=== PATIENT | male | born 1935 | race Caucasian/White ===

== ENCOUNTER → 2016-11-10 | Day surgery (SDC) | payer OTHER ==
[2016-11-03 13:35] VITALS: Ht 170.2 cm; Wt 72.7 kg
[2016-11-08] MEDS: PHENYLEPHRINE HCL 10% OP SOLN PER DROP CHARGE OPR SCH ×3 (08:25→08:35)
[~2016-11-10] VITALS: Ht 170.2 cm; Wt 72.7 kg
[~2016-11-10] MED LIST: 500ML BSS 0.3ML EPI 1:1000PF IRRIG ONE; ACETAMINOPHEN 325 MG TAB PO PRN; AMVISC PLUS 0.8ML SYRINGE INT OCU ONE; ASPCH81X PO; ATROPINE SULFATE 0.1 MG/ML 5ML SYR IV PRN; BROM0.07 OPR; BSS FLUSH ONE; CHOL1000 PO; DOXY100C76 PO; ENDOCOAT 0.85ML SYRINGE INT OCU ONE; EpHEDrine SULFATE INJ 50 MG/ML AMP IV PRN; EpINEphrine INJ 1MG/ML AMP 1 MG/ML AMP ONE; HYDR-5688 PO; LACTATED RINGER'S 1000ML 500 ML IV SCH; LIDOCAINE 4% OP SOLN DROP CHARGE ONE; LIDOCAINE 4% OP SOLN DROP CHARGE OPR SCH; LIDOCAINE HCL 1% MPF 2 ML VIAL ONE; LISI-788 PO; MELA1TAB5 PO; MIDAZOLAM HCL 1 MG/ML 2ML VIAL ONE; MIX: 4ML BSS 1ML EPI 1:1000 PF TOP ONE; MOXIFLOXACIN OPH SOLN PER DROP CHARGE ONE; PHENYLEPHRINE HCL 2.5% OP SOLN PER DROP CHARGE OPR SCH; POVIDONE-IODINE OP SOLN 30 ML BTL ONE; PRED1SUS3 OPR; PRLSR20 PO; PROPARACAINE 0.5% OP SOLN PER DROP CHARGE OPR SCH; SIMV20TA2 PO; TOBRAMYCIN/DEXAMETHASONE OPH OINT PER APPLN CHARGE ONE
[2016-11-10] MEDS: TROPICAMIDE 1% OP SOLN PER DROP CHARGE OPR SCH ×3 (08:26→08:36)
[2016-11-10] MEDS: CYCLOPENTOLATE HCL 1% OP SOLN PER DROP CHARGE OPR SCH ×3 (08:27→08:37)
[2016-11-10] MEDS: MOXIFLOXACIN OPH SOLN PER DROP CHARGE OPR SCH ×3 (08:28→08:38)
--- NOTE | 2016-11-10 08:48 | History & Physical Bridge - SC ---
H&P Re-Evaluation Bridge Note: I have examined the patient, reviewed the History & Physical and in the interval since the performance of the History & Physical I have noted the following changes of clinical significance: No changes noted
--- NOTE | 2016-11-10 09:58 | [facility] Post Operative Brief Note ---
Immediate Operative Summary Operative Date Nov 10, 2016. Pre-Operative Diagnosis Right Eye Cataract Post-Operative Diagnosis same Procedure(s) Performed Right Cataract Phacoemulsification With Intraocular Lens Implant Surgeon Dr. Bertha Barajas [employer] Dean Surgeon(s) 0 Estimated Blood Loss 0 Findings right cataract Specimens none Complication(s) None Disposition
[2016-11-10 10:00] VITALS: TEMP 37.2
--- NOTE | 2016-11-10 10:00 | [facility] Operative Report ---
Operative Report Date of Service Nov 10, 2016. Operative Report Phaco with monofocal IOL DATE OF OPERATION: 11/10/16 PREOPERATIVE DIAGNOSIS: Senile nuclear cataract, right eye POSTOPERATIVE DIAGNOSIS: Senile nuclear cataract, right eye PROCEDURE PERFORMED: Phacoemulsification with intraocular lens implantation, right eye SURGEON: Dr. Fredi Barajas ANESTHESIA: Topical with 1% intracameral lidocaine and monitored anesthesia care COMPLICATIONS: None DESCRIPTION OF PROCEDURE: After positively identifying the patient both verbally and by wristband in the preoperative area, the right eye was marked as the operative eye. The patient was then brought back to the operating room by the anesthesia and nursing staff where they were given a drop of Lidocaine and betadine into the operative eye. They were then sterilely prepped and draped in the standard fashion typical for ophthalmic surgery. Steri-strips were placed along the upper eyelids to keep the lashes back, and a lid speculum was placed into the operative eye. At this point, a documented time out was performed with members of the ophthalmology, nursing, and anesthesia staffs all agreeing upon the correct patient, correct location for surgery, correct procedure, and correct type and power of intraocular lens to be implanted. The microscope was then swung into position. First, a paracentesis wound was made using a sideport blade. Then, in sequence, 1% preservative-free lidocaine followed by Endocoat viscoelastic was injected into the anterior chamber. Next , the main incision was made with a keratome blade in triplanar fashion. A Malyugin ring was inserted due to poor pupil dilation. A sharp cystotome was introduced into the eye and used to create a tear in the anterior capsule, which was directed into a continuous curvilinear capsulorrhexis using Utrata forceps. Hydrodissection was then performed with BSS on a flat-tip cannula. Next, the phacoemulsification handpiece was introduced into the eye and used to remove the nucleus in a [id number] fashion. This was done without complication and then the irrigation-aspiration handpiece was introduced into the eye and used to remove all remaining cortical and epinuclear material. Amvisc was then injected into the anterior chamber as well as into the capsular bag and using the lens injector system, an MX60 20.0 D lens, serial number [id number], and expiration date 05/2019 was injected into the capsular bag and rotated into the correct position. The Malyugin ring was removed. Next, the irrigation-aspiration handpiece was used to remove all remaining Amvisc. BSS was used to hydrate the main wound, and then BSS was injected into the paracentesis site to reach physiologic pressure and then the main wound was checked and found to be watertight. The patient was given drops of Vigamox and Tobradex ointment into the operative eye, and then the surrounding area was cleaned and dried. A clear plastic shield was placed over the eye and the patient was then sat up and taken from the operating room by the anesthesia staff having tolerated the procedure well and suffering no complications. DISPOSITION: The patient was returned to the recovery room in stable condition. I attest to the content of the Intraoperative Record and any orders documented therein. Any exceptions are noted below.
--- NOTE | 2016-11-10 10:01 | Discharge Instructions-SurgCtr ---
Discharge Instructions Date of Service Nov 10, 2016. Visit Reason for Visit: Cataract Right Eye Discharge Discharge Diagnosis / Problem: right cataract Discharge Goals Goal(s): Decrease discomfort, Improve function Activity Recommendations Activity Limitations: as noted below Anesthesia . Post Anesthesia Instructions: If you have had General Anesthesia or IV Sedation: * Do not drive today. * Resume driving when surgeon permits. * Do not make important decisions or sign legal documents today. * Call surgeon for: 1. Temperature elevations greater than 101 degrees F. 2. Uncontrollable pain. 3. Excessive bleeding. 4. Persistent nausea and vomiting. 5. Medication intolerance (nausea, vomiting or rash). * For nausea and vomiting use only clear liquids such as: tea, soda, bouillon until nausea subsides, then gradually increase diet as tolerated. * If you have any concerns or questions, call your surgeon's office. If physician is unavailable and it is an emergency, call 911 or go to the nearest emergency room. . Instructions / Follow-Up Instructions / Follow-Up ACTIVITY RECOMMENDATIONS: * Light activities. * You may walk outside, read, watch television. * You may notice redness on the white part of the eye and some blurry vision - this is normal. MEDICATIONS: Resume previous medications unless instructed otherwise by your surgeon. Start all eye drops at 12 pm today: * Eye drops (today): Prednisone - one drop in operative eye every 2 hours while awake Ofloxacin - one drop in operative eye every 2 hours while awake Bromfenac - one drop in operative eye daily SPECIAL CARE INSTRUCTIONS: * Tape plastic shield over eye to sleep at night. Call your doctor at with any concerns or problems. FOLLOW UP VISIT: Follow-up with Dr Barajas at [facility] as scheduled. Diet Recommendations Home Diet: no limitations Procedures Procedures Performed: Right Cataract Phacoemulsification With Intraocular Lens Implant Pending Studies Studies pending at discharge: no Medical Emergencies . Who to Call and When: Medical Emergencies: If at any time you feel your situation is an emergency, please call 911 immediately. . Non-Emergent Contact Non-Emergency issues call your: Surgeon . . "Provider Documentation" section prepared by Fredi Barajas.
[2016-11-10 10:18] VITALS: BP 144/79; PULSE 62; O2SAT 98
--- NOTE | 2016-11-10 10:22 | Anesthesia Progress Nt - [facility] ---
Anesthesia Post Op Note Date & Time Nov 10, 2016 at 10:22 Vital Signs Pain Intensity: 0 Vital Signs Past 12 Hours Date Time Temp Pulse Resp B/P Pulse Ox O2 Delivery O2 Flow Rate FiO2 11/10/16 10:18 62 20 144/79 98 Room Air 11/10/16 10:00 37.2 74 16 143/82 97 Room Air 11/10/16 08:16 36.5 68 16 132/76 98 Room Air Notes Mental Status: alert / awake / arousable, participated in evaluation Pt Amnestic to Procedure: Yes Nausea / Vomiting: adequately controlled Pain: adequately controlled Airway Patency, RR, SpO2: stable & adequate BP & HR: stable & adequate Hydration State: stable & adequate Anesthetic Complications: no major complications apparent
== END | disposition home or self-care (01) ==
LOC: X.SURG 08:03
PROVIDERS: ATTEND Ophthalmology
DX: H25.11 Age-related nuclear cataract, right eye (principal); H91.90 Unspecified hearing loss, unspecified ear; E78.00 Pure hypercholesterolemia, unspecified; I10 Essential (primary) hypertension

== ENCOUNTER → 2016-11-24 | Day surgery (SDC) | payer OTHER ==
[2016-11-18 15:33] VITALS: Ht 170.2 cm; Wt 72.7 kg
[~2016-11-24] VITALS: Ht 170.2 cm; Wt 72.7 kg
[~2016-11-24] MED LIST changes: -BSS FLUSH ONE; -EpHEDrine SULFATE INJ 50 MG/ML AMP IV PRN; +LIDOCAINE 4% OP SOLN DROP CHARGE OPL SCH; -LIDOCAINE 4% OP SOLN DROP CHARGE OPR SCH; -PHENYLEPHRINE HCL 2.5% OP SOLN PER DROP CHARGE OPR SCH; +PROPARACAINE 0.5% OP SOLN PER DROP CHARGE OPL SCH; -PROPARACAINE 0.5% OP SOLN PER DROP CHARGE OPR SCH
[2016-11-24] MEDS: PHENYLEPHRINE HCL 2.5% OP SOLN PER DROP CHARGE OPL SCH ×3 (07:24→07:34)
[2016-11-24] MEDS: TROPICAMIDE 1% OP SOLN PER DROP CHARGE OPL SCH ×3 (07:25→07:35)
[2016-11-24] MEDS: CYCLOPENTOLATE HCL 1% OP SOLN PER DROP CHARGE OPL SCH ×3 (07:26→07:36)
[2016-11-24] MEDS: MOXIFLOXACIN OPH SOLN PER DROP CHARGE OPL SCH ×3 (07:27→07:47)
--- NOTE | 2016-11-24 08:31 | [facility] Post Operative Brief Note ---
Immediate Operative Summary Operative Date Nov 24, 2016. Pre-Operative Diagnosis Cataract left eye Post-Operative Diagnosis same Procedure(s) Performed Left Cataract Phacoemulsification With Intraocular Lens Implant Surgeon Dr Barajas Client Consultant Surgeon(s) 0 Estimated Blood Loss 0 Findings left cataract Specimens 0 Complication(s) None Disposition
[2016-11-24 08:32] VITALS: BP 128/86; PULSE 60; TEMP 36.3; O2SAT 96
--- NOTE | 2016-11-24 08:32 | [facility] Operative Report ---
Operative Report Date of Service Nov 24, 2016. Operative Report Phaco with monofocal IOL DATE OF OPERATION: 11/24/16 PREOPERATIVE DIAGNOSIS: Senile nuclear cataract, left eye POSTOPERATIVE DIAGNOSIS: Senile nuclear cataract, left eye PROCEDURE PERFORMED: Phacoemulsification with intraocular lens implantation, left eye SURGEON: Dr. Fredi Barajas ANESTHESIA: Topical with 1% intracameral lidocaine and monitored anesthesia care COMPLICATIONS: None DESCRIPTION OF PROCEDURE: After positively identifying the patient both verbally and by wristband in the preoperative area, the left eye was marked as the operative eye. The patient was then brought back to the operating room by the anesthesia and nursing staff where they were given a drop of Lidocaine and betadine into the operative eye. They were then sterilely prepped and draped in the standard fashion typical for ophthalmic surgery. Steri-strips were placed along the upper eyelids to keep the lashes back, and a lid speculum was placed into the operative eye. At this point, a documented time out was performed with members of the ophthalmology, nursing, and anesthesia staffs all agreeing upon the correct patient, correct location for surgery, correct procedure, and correct type and power of intraocular lens to be implanted. The microscope was then swung into position. First, a paracentesis wound was made using a sideport blade. Then, in sequence, 1% preservative-free lidocaine followed by Endocoat viscoelastic was injected into the anterior chamber. Next , the main incision was made with a keratome blade in triplanar fashion. A sharp cystotome was introduced into the eye and used to create a tear in the anterior capsule, which was directed into a continuous curvilinear capsulorrhexis using Utrata forceps. Hydrodissection was then performed with BSS on a flat-tip cannula. Next, the phacoemulsification handpiece was introduced into the eye and used to remove the nucleus in a [id number] fashion. This was done without complication and then the irrigation-aspiration handpiece was introduced into the eye and used to remove all remaining cortical and epinuclear material. Amvisc was then injected into the anterior chamber as well as into the capsular bag and using the lens injector system, an MX60 19.5 D lens, serial number [id number], and expiration date 06/2018 was injected into the capsular bag and rotated into the correct position. Next, the irrigation- aspiration handpiece was used to remove all remaining Amvisc. BSS was used to hydrate the main wound, and then BSS was injected into the paracentesis site to reach physiologic pressure and then the main wound was checked and found to be watertight. The patient was given drops of Vigamox and Tobradex ointment into the operative eye, and then the surrounding area was cleaned and dried. A clear plastic shield was placed over the eye and the patient was then sat up and taken from the operating room by the anesthesia staff having tolerated the procedure well and suffering no complications. DISPOSITION: The patient was returned to the recovery room in stable condition. I attest to the content of the Intraoperative Record and any orders documented therein. Any exceptions are noted below.
--- NOTE | 2016-11-24 08:32 | Discharge Instructions-SurgCtr ---
Discharge Instructions Date of Service Nov 24, 2016. Visit Reason for Visit: Cataract Left Eye Discharge Discharge Diagnosis / Problem: left cataract Discharge Goals Goal(s): Decrease discomfort, Improve function Activity Recommendations Activity Limitations: as noted below Anesthesia . Post Anesthesia Instructions: If you have had General Anesthesia or IV Sedation: * Do not drive today. * Resume driving when surgeon permits. * Do not make important decisions or sign legal documents today. * Call surgeon for: 1. Temperature elevations greater than 101 degrees F. 2. Uncontrollable pain. 3. Excessive bleeding. 4. Persistent nausea and vomiting. 5. Medication intolerance (nausea, vomiting or rash). * For nausea and vomiting use only clear liquids such as: tea, soda, bouillon until nausea subsides, then gradually increase diet as tolerated. * If you have any concerns or questions, call your surgeon's office. If physician is unavailable and it is an emergency, call 911 or go to the nearest emergency room. . Instructions / Follow-Up Instructions / Follow-Up ACTIVITY RECOMMENDATIONS: * Light activities. * You may walk outside, read, watch television. * You may notice redness on the white part of the eye and some blurry vision - this is normal. MEDICATIONS: Resume previous medications unless instructed otherwise by your surgeon. Start all eye drops at 10:30 am today: * Eye drops (today): Prednisone - one drop in operative eye every 2 hours while awake Ofloxacin - one drop in operative eye every 2 hours while awake Bromfenac - one drop in operative eye daily SPECIAL CARE INSTRUCTIONS: * Tape plastic shield over eye to sleep at night. Call your doctor at with any concerns or problems. FOLLOW UP VISIT: Follow-up with Dr Barajas at [facility] as scheduled. Diet Recommendations Home Diet: no limitations Procedures Procedures Performed: Left Cataract Phacoemulsification With Intraocular Lens Implant Pending Studies Studies pending at discharge: no Medical Emergencies . Who to Call and When: Medical Emergencies: If at any time you feel your situation is an emergency, please call 911 immediately. . Non-Emergent Contact Non-Emergency issues call your: Surgeon . . "Provider Documentation" section prepared by Fredi Barajas.
--- NOTE | 2016-11-24 08:58 | Anesthesia Progress Nt - [facility] ---
Anesthesia Post Op Note Date & Time Nov 24, 2016 at 08:58 Vital Signs Pain Intensity: 0 Vital Signs Past 12 Hours Date Time Temp Pulse Resp B/P Pulse Ox O2 Delivery O2 Flow Rate FiO2 11/24/16 08:32 36.3 60 18 128/86 96 Room Air 11/24/16 07:16 36.5 63 20 118/76 100 Room Air Notes Mental Status: alert / awake / arousable, participated in evaluation Pt Amnestic to Procedure: Yes Nausea / Vomiting: adequately controlled Pain: adequately controlled Airway Patency, RR, SpO2: stable & adequate BP & HR: stable & adequate Hydration State: stable & adequate Anesthetic Complications: no major complications apparent
== END | disposition home or self-care (01) ==
LOC: X.SURG 07:01
PROVIDERS: ATTEND Ophthalmology
DX: H25.12 Age-related nuclear cataract, left eye (principal); Z98.49 Cataract extraction status, unspecified eye; H04.129 Dry eye syndrome of unspecified lacrimal gland; I10 Essential (primary) hypertension; H91.90 Unspecified hearing loss, unspecified ear; K21.9 Gastro-esophageal reflux disease without esophagitis; E78.9 Disorder of lipoprotein metabolism, unspecified

== ENCOUNTER 2017-01-29 11:22 | Emergency (ER) | payer OTHER ==
[~2017-01-29] VITALS: Ht 170.2 cm; Wt 74.8 kg
[~2017-01-29 11:22] MED LIST changes: -500ML BSS 0.3ML EPI 1:1000PF IRRIG ONE; -ACETAMINOPHEN 325 MG TAB PO PRN; -AMVISC PLUS 0.8ML SYRINGE INT OCU ONE; -ATROPINE SULFATE 0.1 MG/ML 5ML SYR IV PRN; -ENDOCOAT 0.85ML SYRINGE INT OCU ONE; -EpINEphrine INJ 1MG/ML AMP 1 MG/ML AMP ONE; -HYDR-5688 PO; -LACTATED RINGER'S 1000ML 500 ML IV SCH; -LIDOCAINE 4% OP SOLN DROP CHARGE ONE; -LIDOCAINE 4% OP SOLN DROP CHARGE OPL SCH; -LIDOCAINE HCL 1% MPF 2 ML VIAL ONE; -MELA1TAB5 PO; -MIDAZOLAM HCL 1 MG/ML 2ML VIAL ONE; -MIX: 4ML BSS 1ML EPI 1:1000 PF TOP ONE; -MOXIFLOXACIN OPH SOLN PER DROP CHARGE ONE; -POVIDONE-IODINE OP SOLN 30 ML BTL ONE; -PROPARACAINE 0.5% OP SOLN PER DROP CHARGE OPL SCH; -TOBRAMYCIN/DEXAMETHASONE OPH OINT PER APPLN CHARGE ONE
[2017-01-29 11:27] VITALS: TEMP 36.5; Ht 170.2 cm; Wt 74.8 kg
--- NOTE | 2017-01-29 11:47 | EMERGENCY ROOM VISIT NOTE ---
History Report prepared by Pearl: Rocio Arroyo Under the Supervision of: Dr. Roddy Montgomery M.D. First contact with patient: 11:35 Chief Complaint: CHEST PAIN Stated Complaint: CHEST PAINS History of Present Illness The patient is a 81 year old male who presents to the Emergency Room with complaints of constant right sided chest pain that began 3 days prior to arrival. He states that the pain radiates around to his back. The patient initially thought he was experiencing heart burn. The patient was 3 days ago lifting a heavy bucket of water when he slipped on rocks and almost fell. He was experiencing chest ache and discomfort before this event but after began to experience the pain. The patient denies abdominal pain or any other symptoms at this time. 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 Review of Systems All systems have been listed, reviewed, and are negative other than those previously mentioned. Please see Additional Medical History Sheet. Past Medical & Surgical Medical Problems: (1) Hypertension Family History Hypertension Lung disease Social History Smoking Status: Never Smoker Smokeless Tobacco Use: Yes Alcohol Use: occasionally Marital Status: Occupation Status: retired Current/Historical Medications Scheduled Aspirin (Aspirin Chewable), 81 MG PO QAM Bromfenac Sodium (Ophth) (Prolensa), 1 DROP OPR DAILY Cholecalciferol (Vitamin D3), 1 TAB PO QAM Lisinopril/Hctz (Zestoretic 20MG/25MG), 1 TAB PO QAM Melatonin (Kp Melatonin), 1 TAB PO HS Omeprazole (Prilosec), 20 MG PO BID Prednisolone Acetate (Ophth) (Pred Forte 1% Oph), 1 DROPS OPR TID Simvastatin (Zocor), 20 MG PO QPM Scheduled PRN Hydrocodone/Acetaminophen 5MG/325MG ([place] 5MG/325MG), 1-2 TABLETS PO Q4 PRN for Severe pain Allergies Coded Allergies: No Known Allergies (Verified , 01/29/17) Physical Exam Vital Signs Date Time Temp Pulse Resp B/P Pulse Ox O2 Delivery O2 Flow Rate FiO2 01/29/17 13:30 67 18 145/95 96 01/29/17 12:28 60 01/29/17 11:32 96 Room Air 01/29/17 11:27 36.5 66 20 159/89 96 Room Air Physical Exam GENERAL: Patient awake, alert, oriented x 3. Patient follows commands. Patient does not appear toxic. Patient is adequately hydrated and well- nourished. SKIN: No erythema, pallor, cyanosis or rash HEENT: Normal head, pupils equal, reactive to light and accommodation. Ears normal. Oral cavity and posterior pharynx appear normal. Neck: Without adenopathy, no neck vein distention. LUNGS: Clear to auscultation. No wheezes, no rales, no rhonchi. Some pain with inspiration. HEART: No murmurs. No gallops. No rubs ABDOMEN: Tender under right breast. No masses, no rebound, no hepatomegaly or splenomegaly. EXTREMITIES: No signs of trauma. No pedal or pretibial edema. No calf or thigh tenderness. NEUROLOGIC: Cranial nerves II-XII within normal limits. No gross motor sensory function deficits. Medical Decision & Procedures ER Provider Diagnostic Interpretation: X ray results are stated below per my interpretation and the radiologist's interpretation. TWO VIEW CHEST CLINICAL HISTORY: Right-sided chest pain. FINDINGS: PA and lateral chest radiographs are obtained. No prior studies are available for comparison at the time of dictation. The cardiomediastinal silhouette is unremarkable. There is atherosclerotic calcification of the thoracic aorta. Nonspecific interstitial thickening is likely chronic. Scattered calcified granulomas are observed. No airspace consolidation or pleural effusion is identified. Nipple shadows project over the lower lobes. There is no pneumothorax. The skeletal structures are osteopenic. Degenerative change is seen throughout the thoracic spine. IMPRESSION: No acute cardiopulmonary abnormality. Electronically signed by: Manuel Jiménez M.D. 01/29/2017 12:18 PM Dictated Date/Time: 01/29/2017 12:16 PM Laboratory Results 01/29/17 12:00 01/29/17 12:00 Test 01/29/17 12:00 Red Blood Count 5.23 M/uL (4.7-6.1) Mean Corpuscular Volume 87.8 fL (80-100) Mean Corpuscular Hemoglobin 30.0 pg (25-34) Mean Corpuscular Hemoglobin Concent 34.2 g/dl (32-36) RDW Standard Deviation 41.0 fL (36.4-46.3) RDW Coefficient of Variation 12.7 % (11.5-14.5) Mean Platelet Volume 10.1 fL (7.4-10.4) Anion Gap 7.0 mmol/L (3-11) Est Creatinine Clear Calc Drug Dose 45.1 ml/min Estimated GFR () 65.3 Estimated GFR (Non- 56.4 BUN/Creatinine Ratio 14.1 (10-20) Calcium Level 8.7 mg/dl (8.5-10.1) Total Bilirubin 0.5 mg/dl (0.2-1) Aspartate Amino Transf (AST/SGOT) 18 U/L (15-37) Alanine Aminotransferase (ALT/SGPT) 23 U/L (12-78) Alkaline Phosphatase 116 U/L (45-117) Troponin I < 0.015 ng/ml (0-0.045) Total Protein 7.0 gm/dl (6.4-8.2) Albumin 4.0 gm/dl (3.4-5.0) Globulin 3.0 gm/dl (2.5-4.0) Albumin/Globulin Ratio 1.3 (0.9-2) Chemistry Specimen Hemolysis Laboratory results as stated above per my review. ECG Indication: chest pain Rate (beats per minute): 56 Rhythm: sinus bradycardia (with SA) Findings: nonspecific-ST abn, no ectopy, other (normal axis) ED Course 1136: Past medical records reviewed. The patient was evaluated in room C2. A complete history and physical examination was performed. 1315: I reevaluated the patient and he is feeling better. 1320: Upon reevaluation, the patient appeared to have improvement of his symptoms. I discussed today's findings with him. He verbalized agreement of the treatment plan. He was discharged home. Medical Decision Nurses notes reviewed. Medical history sheet reviewed. Differential diagnosis includes but is not limited to: myocardial infarction, chest wall pain, pericarditis, myocarditis, aortic emergencies, pulmonary embolism, congestive heart failure, GI causes, and other significant cardiopulmonary disorders. Medication Reconciliation: I attest that I have personally reviewed the patient' s current medication list. Blood Pressure Screening: Patient was found to have an elevated blood pressure and was referred to their primary doctor for recheck and further treatment. Multiple labs, EKG and imaging were obtained. Please see above. The patient has no evidence of a pneumohemothorax. There is no infiltrate. The patient's pain appears to be musculoskeletal in nature. That is consistent with his history and physical exam. The patient will be encouraged to use ibuprofen during the day and hydrocodone for more severe pain. [place] Drug Monitoring Program Search Results: patient reviewed within database (No matching searches found) Impression Primary Impression: Chest wall pain Scribe Attestation The scribe's documentation has been prepared under my direction and personally reviewed by me in its entirety. I confirm that the note above accurately reflects all work, treatment, procedures, and medical decision making performed by me. Departure Information Dispostion Home / Self-Care Prescriptions Hydrocodone/Acetaminophen 5MG/325MG ([place] 5MG/325MG) Tab 1-2 TABLETS PO Q4 Y for Severe pain, #12 TAB PRN PAIN Prov: Roddy Montgomery M.D. 01/29/17 Referrals Leandro Aldridge M.D. (PCP) Forms HOME CARE DOCUMENTATION FORM, IMPORTANT VISIT INFORMATION Patient Instructions My [facility] Additional Instructions 2-3 Advil every 6 hours as needed for pain. 1-2 hydrocodone every 4 hours as needed for more severe pain. Avoid heavy lifting for the next 2-3 weeks. Follow-up with your family physician within the next 2 weeks. Return here sooner if you develop more chest pain or shortness of breath.
[2017-01-29 12:13] LABS: HEMATOCRIT 45.9 % (42-52); MEAN CELL VOLUME 87.8 fL (80-100); MEAN CORPUSCULAR HGB CONC 34.2 g/dl (32-36); MEAN PLATELET VOLUME 10.1 fL (7.4-10.4); PLATELET COUNT 183 K/uL (130-400); RED BLOOD COUNT 5.23 M/uL (4.7-6.1)
[2017-01-29] MEDS ORDERED: MELA1TAB5 PO (12:18)
--- NOTE | 2017-01-29 12:19 | DIAGNOSTIC IMAGING REPORT ---
TWO VIEW CHEST CLINICAL HISTORY: Right-sided chest pain. FINDINGS: PA and lateral chest radiographs are obtained. No prior studies are available for comparison at the time of dictation. The cardiomediastinal silhouette is unremarkable. There is atherosclerotic calcification of the thoracic aorta. Nonspecific interstitial thickening is likely chronic. Scattered calcified granulomas are observed. No airspace consolidation or pleural effusion is identified. Nipple shadows project over the lower lobes. There is no pneumothorax. The skeletal structures are osteopenic. Degenerative change is seen throughout the thoracic spine. IMPRESSION: No acute cardiopulmonary abnormality. Electronically signed by: Manuel Jiménez M.D. 01/29/2017 12:18 PM Dictated Date/Time: 01/29/2017 12:16 PM
[2017-01-29 12:48] LABS: ALB/GLOB RATIO 1.3 (0.9-2); ALKALINE PHOSPHATASE 116 U/L (45-117); ALT/SGPT 23 U/L (12-78); AST/SGOT 18 U/L (15-37); BLOOD UREA NITROGEN 17 mg/dl (7-18); BUN/CREATININE RATIO 14.1 (10-20); CALCIUM 8.7 mg/dl (8.5-10.1); CARBON DIOXIDE 29 mmol/L (21-32); CHLORIDE 106 mmol/L (98-107); GLUCOSE 87 mg/dl (70-99); POTASSIUM 4.7 mmol/L (3.5-5.1); SODIUM 142 mmol/L (136-145)
[2017-01-29] MEDS ORDERED: HYDR-5688 PO (13:19)
[2017-01-29 13:30] VITALS: BP 145/95; PULSE 67; O2SAT 96
== END 2017-01-29 13:32 | disposition home or self-care (01) ==
LOC: C.EDB 11:24 → C.EDC 13:32
DX: R07.89 Other chest pain (principal); R00.1 Bradycardia, unspecified; I10 Essential (primary) hypertension; Z79.82 Long term (current) use of aspirin; Z79.899 Other long term (current) drug therapy; Z82.49 Family history of ischemic heart disease and other diseases of the circulatory system

== ENCOUNTER 2024-03-26 05:45 | Inpatient (IN) ==
--- NOTE | 2024-03-13 09:46 | Anesthesiology Consultation ---
Date of Service March 13, 2024 Assessment & Plan (1) Encounter for pre-operative examination: - surgeon ordered PCP pre-op appointment 03/15/24 per [facility] EMR. - Per echo vascular technologist on 03/13/24: No known infectious disease contacts, current infectious disease symptoms in past 10 days or COVID positive test result in the past 30 days. Chart Review Chart Review: Pending: Refer to Additional Notes / Consult section and Patient NOT seen in Pre Admission Testing History Surgery Operation Date: 03/26/24 11:05 Proposed Procedures p C3-C6 Anterior Cervical Discectomy and Fusion, C4 Corpectomy - Og Lane DO Height/Weight Height: 5 ft 7 in Weight: 63.503 kg Allergies Allergy/AdvReac Type Severity Reaction Status Date / Time No Known Allergies Allergy Verified 03/13/24 08:49 Medications Home Medications Medication Instructions Recorded Confirmed Last Taken omeprazole 20 mg tablet,delayed 20 mg PO QAM Heartburn 05/02/19 03/13/24 Unknown release aspirin 81 mg tablet,delayed 81 mg PO QAM 11/07/19 03/13/24 Unknown release (Adult Aspirin Regimen) amlodipine 5 mg tablet 5 mg PO QAM 03/13/24 03/13/24 Unknown cholecalciferol (vitamin D3) 25 25 mcg PO QAM 03/13/24 03/13/24 Unknown mcg (1,000 unit) tablet (Vitamin D3) diphenhydramine 25 1 tab PO HS PRN pain/sleep 03/13/24 03/13/24 Unknown mg-acetaminophen 500 mg tablet (Tylenol PM Extra Strength) doxycycline hyclate 100 mg capsule 100 mg PO .COMPLEX rosacea 03/13/24 03/13/24 Unknown lisinopril 20 mg tablet 20 mg PO QAM 03/13/24 03/13/24 Unknown simvastatin 20 mg tablet 20 mg PO QPM 03/13/24 03/13/24 Unknown Past Medical History Medical History (Updated 03/13/24 @ 09:52 by Pam Brown PA-C) CKD (chronic kidney disease) stage 3, GFR 30-59 ml/min GERD (gastroesophageal reflux disease) History of Mohs micrographic surgery for skin cancer Hx of basal cell carcinoma Hx of colonic polyps Hx of squamous cell carcinoma Hyperlipidemia Hypertension Prediabetes Rosacea Past Family History Family History Other No pertinent family history Past Surgical History Surgical History History of colonoscopy History of repair of rotator cuff (~2018) right S/P carpal tunnel release left S/P epidural steroid injection lumbar S/P inguinal hernia repair right Social History Smoking Status: Former smoker Do You Dip or Chew Tobacco: Yes (occasionally (advised on policy)) Smoking End Date: 1985 Hx Alcohol Use: No Hx Substance Use: No substance use type: does not use Lab Results Anesthesia Preop Results Results Anesthesia Widget: WBC 5.56 K/ul (4.8-10.8) 03/12/24 Hgb 14.8 g/dl (14.0-18.0) 03/12/24 Hct 43.5 % (42.0-52.0) 03/12/24 Plt 229 K/uL (130-400) 03/12/24 Na 142 mmol/L (136-145) 03/12/24 K 4.1 mmol/L (3.5-5.1) 03/12/24 Cl 108 mmol/L (98-107) H 03/12/24 CO2 27 mmol/L (21-32) 03/12/24 BUN 19 mg/dl (6-23) 03/12/24 Creat 1.00 mg/dl (0.6-1.4) 03/12/24 Glucose Level 99 mg/dl (70-99(Fasting)) 03/12/24 PT 10.9 Seconds (9.0-12.0) 03/12/24 PTT 25 Seconds (21-31) 03/12/24 INR 1.0 (0.9-1.1) 03/12/24 Urine Color Yellow 03/12/24 Urine Appearance Clear (Clear) 03/12/24 Urine pH 6.5 (4.5-7.5) 03/12/24 Urine Specific [place] 1.018 (1.000-1.030) 03/12/24 Urine Protein Negative (Negative) 03/12/24 Urine Glucose (UA) Negative (Negative) 03/12/24 Urine Ketones Negative (Negative) 03/12/24 Urine Blood Negative (Negative) 03/12/24 Urine Nitrite Negative (Negative) 03/12/24 Urine Bilirubin Negative (Negative) 03/12/24 Urine Urobilinogen Negative (Negative) 03/12/24 Urine Leukocyte Esterase Negative (Negative) 03/12/24 Blood Type O Positive 03/12/24 Antibody Screen NEGATIVE 03/12/24 Testing Electrocardiogram Date: 03/12/24 Sinus bradycardia with 1st degree AV block, rate 57 bpm Incomplete RBBB Chest X-Ray Date: 03/12/24 Subsegmental bibasilar opacities likely represent atelectasis/scarring. A mild pneumonitis considered less likely. Other Testing Head CT 08/14/23 No acute intracranial abnormality.
--- OUTSIDE RECORDS SUMMARY | 2024-03-26 05:52 | External Medical Summary | Summary of Care ---
Author Name Unknown Organization [facility] Address [address] [place] [address] Phone [phone] Care Team Providers Care Clinical Specialty Rep Name Role Phone Leandro Aldridge MD Primary Care Provider [phone] Reason for Visit * Reason Comments pre-op exam Pt here today for pr e op appointment Encounter Details Date Type Department Care Team (Latest Contact Info) Description 03/15/2024 3:00 PM EDT Office Visit [facility] [address] [place] [address] Bibi Santoro MD [address] [place] [address] Preoperative general physical examination*; Cervical myelopathy with cervical radiculopathy (HCC); Cervical spinal stenosis; HTN, goal below 140/90; Dyslipidemia, goal LDL below 100; Chronic kidney disease, stage 3a (HCC); Prediabetes Allergies No known active allergiesdocumented as of this encounter (statuses as of 03/15/2024) Medications Medication Sig Dispensed Refills Start Date End Date Status ASPIRIN 81 MG OR TABS one tab by mouth daily 0 0 04/15/2004 Active VITAMIN D 1000 UNITS PO CAPSIndications:Vi tamin D deficiency 1 capsule daily 30 Cap 11 06/02/2012 Active Doxycycline Hyclate 100 MG Oral Capsule Take 1 Capsule by mouth every other day. 09/24/2021 Active amLODIPine Besylate 5 MG Oral Tablet (Norvasc)Indicatio ns:HTN, goal below 140/90 Take 1 Tablet by mouth every evening. 90 Tablet 3 10/19/2023 Active Lisinopril 20 MG Oral Tablet (Prinivil)Indicati ons:HTN, goal below 140/90 TAKE 1 TABLET BY MOUTH EVERY DAY IN THE MORNING 90 Tablet 2 11/15/2023 Active Simvastatin 20 MG Oral Tablet (Zocor)Indications :Dyslipidemia, goal LDL below 100 TAKE 1 TABLET BY MOUTH EVERY DAY IN THE EVENING 90 Tablet 1 12/05/2023 Active Omeprazole 20 MG Oral Capsule Delayed Release (PriLOSEC)Indicati ons:Gastroesophage al reflux disease with esophagitis without hemorrhage TAKE 1 CAPSULE BY MOUTH EVERY MORNING 90 Capsule 1 12/16/2023 Active amLODIPine Besylate 2.5 MG Oral Tablet (Norvasc)Indicatio ns:HTN, goal below 140/90 TAKE 1 TABLET BY MOUTH EVERY DAY IN THE MORNING 90 Tablet 2 02/16/2023 03/15/2024 Discontinued (Patient preference/d iscontinuati on) documented as of this encounter (statuses as of 03/15/2024) Active Problems Problem Noted Date Diagnosed Date Prediabetes 10/18/2022 Overview: Per Prediabetes protocol Chronic kidney disease, stage 3a 01/13/2021 Overview: Per CKD protocol Intention tremor 10/08/2020 Hypertensive kidney disease with stage 3a chronic kidney disease 07/14/2020 Overview: Per CKD protocol Benign essential tremor 06/16/2017 Podagra 08/02/2016 HTN, goal below 140/90 11/05/2014 Acne rosacea 06/06/2014 Vitamin D deficiency 06/02/2012 Dyslipidemia, goal LDL below 100 05/26/2010 ADVANCE DIRECTIVE INFORMATION 04/27/2005 Overview: No, Advance Directive brochure offered , patient declined. ROTATOR CUFF SYNDROME, RIGHT SHOULDER 01/29/2003 Reflux esophagitis documented as of this encounter (statuses as of 03/15/2024) Resolved Problems Problem Noted Date Diagnosed Date Resolved Date Chronic kidney disease, stage 3a 01/13/2021 02/19/2021 Overview: Per CKD protocol Hypertensive kidney disease with chronic kidney disease stage III 06/19/2019 07/17/2020 Overview: Per CKD protocol Dizziness 02/27/2015 08/18/2018 Vertigo 02/27/2015 08/18/2018 KIDNEY DZ,CHRONIC (GFR 30-59) STAGE III 03/26/2010 01/15/2021 Overview: Per CKD Protocol, #1 HTN, goal below 130/80 08/22/200911/05 OPEN WOUND OF HAND, SPLINTER LEFT PALM 01/31/2007 08/18/2018 Elevated blood pressure, situational 01/29/2003 08/18/2018 pigmented hyperplastic solar keratosis- L mandible 02/17/98 09/18/2002 08/18/2018 solar lentigo- R helical rim 02/17/98 09/18/2002 08/18/2018 Actinic keratosis 09/18/2002 08/18/2018 BENIGN NEOPLASM LG BOWEL Diaphragmatic hernia 018 Overview: hiatal documented as of this encounter (statuses as of 03/15/2024) Immunizations Name Administration Dates Next Due COVID-19 mRNA, LNP-s, No Pre serve, 2-Dose Series (Moderna) 10/31/2020,10/03/2020 COVID-19 mRNA, LNP-s, No Pre serve, 2-Dose Series (Pfizer) 07/07/2021 COVID-19, MRNA-LNP, 23-24, P F, 30 MCG/0.3 mL, 12 YRS AND ABOVE, IM (PFIZER-Comirnaty) 07/13/2023 COVID-19, mRNA, LNP-s, PF, B ooster, 100mcg/0.5mg (Moderna) 01/25/2022 Covid-19, Mrna, Lnp-s, Pf, B ivalent, 30 Mcg, IM, 12 yrs and above (Pfizer) 06/07/2022 Pneumococcal Conjugate Vacc, 13 Valent (Prevnar) 06/09/2015 Pneumococcal Polysaccharide PPV23 (Pneumovax) 06/29/2006 Season Influenza, Quad, PF, Adjuvanted, 65+ Yrs, IM (FLUAD) 05/18/2021,05/13/2020 Seasonal Influenza, PF, 6 M & above, IM , (FluLaval or Fluzone) 06/04/2019,06/13/2018,06/16/2017 Seasonal Influenza, Quadriva lent Hd (Fluzone Hd) 05/17/2023,06/01/2022 Seasonal Influenza, Quadriva lent, No Preserve, IM 06/15/2016,06/09/2015 Seasonal Influenza, Split, I IV3, With Preserve, Inj 06/06/2014,06/04/2013,06/02/2012,05/28,05/26/2010,05/23/2009,07/01/2008 ,06/07/2007,06/29/2006 TDAP (age 10 and older)(Boostrix) 06/06/2014 Varicella Zoster Vaccine (Adult) 10/16/2008 Zoster Vaccine Recombinant (Shingrix) 10/28/2019 ,07/19/2019 documented as of this encounter Social History Tobacco Use Types Packs/Day Years Used Date Smoking Tobacco: Former Cigarettes 0.5 15 0 [birth year]/05/1944 - 09/05/1959 Passive Smoke Exposure: Past Smokeless Tobacco: Current Snuff Tobacco Cessation:Ready to Q uit: Not Asked; Counseling Given: Not Answered Comments:occasional chew Alcohol Use Standard Drinks/Week Comments Not Currently 0 (1 standard drink = 0.6 oz pur e alcohol) rarely PHQ-2 Answer Date Recorded PHQ Adult Total Score 0 07/29/2023 Hunger Vital Sign Answer Date Recorded Within the past 12 months, y ou worried that your food would run out before you got the money to buy more. Never true 07/28/20 22 Within the past 12 months, t he food you bought just didn't last and you didn't have money to get more. Never true 07/28/2022 Utilities Answer Date Recorded Do you have trouble paying y our heating, water, or electric bill? (Adult - for ages 18 years and over) Not on file 02/21/2024 Is your family able to pay t he heat, water, or electric bill? (Household - for ages 0-17 years) Not on file 02/21/2024 Does your family have access to good internet? (Household - for ages 0-17 years) Not on file 02/21/2024 Social Connections Answer Date Recorded How often do you feel lonely or isolated from those around you? (Adult - for ages 18 years and over) Not on file 02/21/2024 Sex and Gender Information Value Date Recorded Sex Assigned at Not on file Gender Identity Male 07/28/2022 8:50 AM EST Sexual Orientation Straight 08/20/2019 7: 43 AM EST Job Start Date Occupation Industry Not on file Not on file Not on file documented as of this encounter Last Filed Vital Signs Vital Sign Reading Time Taken Comments Blood Pressure 148/84 03/15/2024 2:56 PM EDT Pulse 71 03/15/2024 2:56 PM EDT Temperature 36.3 C (97.3 F) 03/15/2024 2:56 PM ED T Respiratory Rate 18 03/15/2024 2:56 PM EDT Oxygen Saturation 95% 03/15/2024 2:56 PM EDT Inhaled Oxygen Concentration - - Weight 71 kg (156 lb 8 oz) 03/15/2024 2:56 PM ED T Height - - Body Mass Index 24.88 07/29/2023 8:50 AM EST documented in this encounter Patient Instructions * Patient Instructions* Bibi Santoro MD - 03/15/2024 3:19 PM EDT Hold aspirin on Mar 18- And ok to resume aspirin right after surgery documented in this encounter Progress Notes * Bibi Santoro MD - 03/15/2024 3:04 PM EDT Subjective: Carlos Montoya is a 88 year old male. Presents at the request of Dr Lane for medical clearance for C3-6 neck surgery Neck MRI done in [place] which showed C2-C3: Mild disc bulge. There is moderate bilateral facet arthropathy. There is moderate bilateral uncovertebral joint disease. There is moderate bilateral neuroforaminal stenosis. There is no spinalcanal stenosis. C3-C4: A moderate disc osteophyte complex. There is moderate bilateral facet arthropathy. There is severe bilateral uncovertebral joint disease. There is severe bilateral neuroforaminal stenosis. There is moderate to severe spinal canal stenosis with spinal cord compression. C4-C5: Moderate to large disc osteophyte complex. There is moderate bilateral facet arthropathy. There is moderate to severe bilateral uncovertebral joint disease. There is moderate to severe bilateral neuroforaminal stenosis. There is severe spinal canal stenosis with spinal cord compression. C5-C6: A moderate disc osteophyte complex. There is moderate bilateral facet arthropathy. There is moderate to severe right and moderate left uncovertebral joint disease. There is moderate to severe right and moderate left neuroforaminal stenosis. There is mild spinal canal stenosis. C6-C7: A small disc osteophyte complex. There is moderate bilateral facet arthropathy. There is mild bilateral uncovertebral joint disease. There is mild bilateral neuroforaminal stenosis. There is no spinal canal stenosis. C7-T1: Mild disc bulge. There is mild right and moderate left facet arthropathy. There is mild right uncovertebral joint disease. There is mild right neuroforaminal stenosis. There is no spinal canalstenosis. Showing weakness, numbness on both hands arms Hypertension, HL Taking medication as prescribed, see med list. No medication side effects noted. Advised patient tokeep healthy life style, regular exercise with good diet, osito. low sodium diet. And also check BP at home too. Denies associated chest discomfort, chest heaviness, chest pressure, chest tightness, edema, palpitations and shortness of breath. taking asa for years Ok to hold it before surgery preDM, hba1c 5.9 Reviewed CXR , chronic atelectasis , no active breathing issue or cough Advised to keep deep breathing and use spirometer after surgery PHM: Patient Active Problem List Diagnosis ROTATOR CUFF SYNDROME, RIGHT SHOULDER Reflux esophagitis ADVANCE DIRECTIVE INFORMATION Dyslipidemia, goal LDL below 100 Vitamin D deficiency Acne rosacea HTN, goal below 140/90 Podagra Benign essential tremor Hypertensive kidney disease with stage 3a chronic kidney disease Intention tremor Chronic kidney disease, stage 3a (HCC) Prediabetes Current Outpatient Medications Medication Sig Dispense Refill ASPIRIN 81 MG OR TABS one tab by mouth daily 0 0 VITAMIN D 1000 UNITS PO CAPS 1 capsule daily 30 Cap 11 Doxycycline Hyclate 100 MG Oral Capsule Take 1 Capsule by mouth every other day. amLODIPine Besylate 5 MG Oral Tablet (Norvasc) Take 1 Tablet by mouth every evening. 90 Tablet 3 Lisinopril 20 MG Oral Tablet (Prinivil) TAKE 1 TABLET BY MOUTH EVERY DAY IN THE MORNING 90 Tablet 2 Simvastatin 20 MG Oral Tablet (Zocor) TAKE 1 TABLET BY MOUTH EVERY DAY IN THE EVENING 90 Tablet 1 Omeprazole 20 MG Oral Capsule Delayed Release (PriLOSEC) TAKE 1 CAPSULE BY MOUTH EVERY MORNING 90 Capsule 1 No current facility-administered medications for this visit. Past Medical History: Diagnosis Date Actinic keratosis Benign neoplasm of colon 1993 COLON POLYPS Benign neoplasm of colon 07/08/09 adenomatous polyp-- repeat in 3 years Diaphragmatic hernia Dyslipidemia, goal LDL below 100 05/26/2010 HTN, goal below 130/80 08/22/2009 KIDNEY DZ,CHRONIC (GFR 30-59) STAGE III 03/26/2010 pigmented hyperplastic solar keratosis- L mandible 02/17/98 Reflux esophagitis solar lentigo- R helical rim 02/17/98 Past Surgical History: Procedure Laterality Date COLONOSCOPY 09/08 normal. repeat 09/13 COLONOSCOPY W/ BIOPSY (RECTUM) 07/08/09 done polyp x1, diverticulosis, adenomatous polyp-- repeat in 3 years COLONOSCOPY, DIAGNOSTIC (RECTUM) 03/28/2013 path shows adenomatous polyp COLONOSCOPY, DIAGNOSTIC (STOMA) 94,95, 98 colonosc DENTAL SURGERY PROCEDURE NEC Dental Surgery Procedure INJECTION LUMBAR/SACRAL 11/22/2014 INJECTION SPINE LUMBAR OR SACRAL performed by Gerry Gilbert Cousins, DO at [facility] REPAIR INITIAL INGUINAL HERNIA REDUCIBLE AGE 5 OR MORE Right x 2 Review of patient's allergies indicates: No Known Allergies Family History Problem Relation Name Age of Onset Heart Disorder Mother Diabetes Mother Stroke Mother Cancer Mother skin ca Lung Disorder Father emphyzemia Family Status Relation Status Mo at age 89 88 [place] 99 HT DIS , CVA , DM Fa at age 67 COPD Sis Alive Sis Alive Social History Tobacco Use Smoking status: Former Current packs/day: 0.00 Average packs/day: 0.5 packs/day for 15.0 years (7.5 ttl pk-yrs) Types: Cigarettes Start date: 09/05/1944 Quit date: 09/05/1959 Years since quittin.5 Passive exposure: Past Smokeless tobacco: Current Types: Snuff Tobacco comments: occasional chew Substance Use Topics Alcohol use: Not Currently Comment: rarely Vaping/E-Cigarette Use Vaping/E-Cigarette Use Never User Vaping/E-Cigarette Substances Vaping/E-Cigarette Devices Review of Systems Constitutional: Positive for activity change (arm weakness, Lt> rt) and fatigue. Negative for appetite change, chills, diaphoresis, fever and unexpected weight change. Respiratory: Negative for cough, chest tightness, shortness of breath and wheezing. Cardiovascular: Negative for chest pain, palpitations and leg swelling. Gastrointestinal: Negative for abdominal distention and abdominal pain. Musculoskeletal: Positive for myalgias (arms), neck pain and neck stiffness. Neurological: Positive for weakness (arms, hands), numbness and headaches. Negative for dizziness and light-headedness. Hematological: Bruises/bleeds easily. Psychiatric/Behavioral: Positive for sleep disturbance. Negative for agitation and behavioral problems. The patient is not nervous/anxious. Objective: BP 148/84 | Pulse 71 | Temp 36.3 C (97.3 F) (Tympanic) | Resp 18 | Wt 71 kg (156 lb 8 oz) | SpO2 95% | BMI 24.88 kg/m | BSA 1.83 m Physical Exam Constitutional: General: He is not in acute distress. Appearance: Normal appearance. He is not ill-appearing, toxic-appearing or diaphoretic. HENT: Head: Normocephalic and atraumatic. Eyes: Extraocular Movements: Extraocular movements intact. Cardiovascular: Rate and Rhythm: Normal rate and regular rhythm. Pulses: Normal pulses. Heart sounds: Normal heart sounds. Pulmonary: Effort: Pulmonary effort is normal. No respiratory distress. Breath sounds: No stridor. No wheezing, rhonchi or rales. Chest: Chest wall: No tenderness. Abdominal: Palpations: Abdomen is soft. Musculoskeletal: Cervical back: Tenderness present. Right lower leg: No edema. Left lower leg: No edema. Neurological: Mental Status: He is alert. Cranial Nerves: No cranial nerve deficit. Sensory: Sensory deficit (arms hands) present. Motor: Weakness (arms hands) present. Gait: Gait abnormal. Psychiatric: Behavior: Behavior normal. 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 (Z01.818) Preoperative general physical examination (primary encounter diagnosis) Plan: op (G95.9, M54.12) Cervical myelopathy with cervical radiculopathy (HCC) Plan: op (M48.02) Cervical spinal stenosis Plan: op (I10) HTN, goal below 140/90 Plan: med (E78.5) Dyslipidemia, goal LDL below 100 Plan: med (N18.31) Chronic kidney disease, stage 3a (HCC) (R73.03) Prediabetes Hold on asa from Mar 18- ( 5-7 days prior to surgery on Mar 25) Bibi Santoro MD documented in this encounter Nursing Notes * Gladys Johnston LPN - 03/15/2024 2:50 PM EDT Chief Complaint Patient presents with pre-op exam Pt here today for pre op appointment documented in this encounter Plan of Treatment Upcoming Encounters Date Type Department Care Team (Late st Contact Info) Description 04/11/2024 7:40 AM EDT Laboratory Laboratory, [place] [address] [place] [id number] [facility] [address] [place] [address] 04/18/2024 7:40 AM EDT Office Visit [facility], [place] [address] [facility] [place] [address] Leandro Aldridge MD [address] [place] [address] 08/20/2024 8:00 AM EST Nurse Only Ancillary Department, [place] [address] [facility] [place] [address] [place], Nurse [facility] [address] [place] [address] Health Maintenance Due Date Last Done Comments COVID-19 Vaccine ( season) 2023 07/13/2023, 06/07/2022, 01/25/2022, Additional history exists Influenza Vaccine (FLU shot) (#1) 2024 05/17/2023, 06/01/2022, 05/18/2021, Additional history exists DTaP,Tdap,and Td Vaccines (2 - Td or Tdap) 06/06/2024 06/06/2014, 07/13/2004, 07/13/2004, Additional history exists Depression Screening 07/29/2024 07/29/2023 Albumin/Creatinine Ratio 10/12/2024 024, 10/04/2022, 09/25/2021, Additional history exists CKD PHOS USE SMARTSET 48209 10/12/2024 02/0 03/2024, 10/04/2022, 09/25/2021, Additional history exists HbA1c 10/12/2024 10/12/2023, 10/04/2022 CKD HGB USE SMARTSET 26431 03/12/202503/12, 10/12/2023, 10/04/2022, Additional history exists Pneumococcal Vaccine: 65+ Years Completed 06/09/2015, 05/06/2015, 06/29/2006, Additional history exists Zoster Vaccines Completed 10/28/2019, 07/06, 10/16/2008 HPV (Gardasil) Vaccine Aged Out No lo nger eligible based on patient's age to complete this topic Hepatitis B Vaccine Aged Out No longe r eligible based on patient's age to complete this topic MENINGOCOCCAL (MENACTRA/MENVEO) Aged Out No longer eligible based on patient's age to complete this topic documented as of this encounter Medical Devices Not on filedocumented as of this encounter Visit Diagnoses Diagnosis Preoperative general physical examination- Primary Other specified pre-operative examination Cervical myelopathy with cervical radiculopathy (HCC) Cervical spinal stenosis Spinal stenosis in cervical region HTN, goal below 140/90 Unspecified essential hypertension Dyslipidemia, goal LDL below 100 Other and unspecified hyperlipidemia Chronic kidney disease, stage 3a (HCC) Prediabetes Other abnormal glucose documented in this encounter Care Teams Clinical Specialty Rep Relationship Specialty Start Date End Date Leandro Aldridge MD [address] [place] [address] PCP - General 01/03/1998 documented as of this encounter"
--- OUTSIDE RECORDS SUMMARY | 2024-03-26 05:52 | External Medical Summary | Summary of Care ---
Author Name Unknown Organization [facility] Address [address] [facility] [address] Phone [phone] Care Team Providers Care Caterer Helper Name Role Phone Leandro Aldridge MD Primary Care Provider [phone] Encounter Details Date Type Department Care Team (Late st Contact Info) Description 03/12/2024 Result Scan Unspecified Department <No scans attached> Allergies No known active allergiesdocumented as of this encounter (statuses as of 03/14/2024) Medications Medication Sig Dispensed Refills Start Date End Date Status ASPIRIN 81 MG OR TABS one tab by mouth daily 0 0 04/15/2004 Active VITAMIN D 1000 UNITS PO CAPSIndications:Vitam in D deficiency 1 capsule daily 30 Cap 11 06/02/2012 Active Doxycycline Hyclate 100 MG Oral Capsule Take 1 Capsule by mouth every other day. 09/24/2021 Active amLODIPine Besylate 2.5 MG Oral Tablet (Norvasc)Indications: HTN, goal below 140/90 TAKE 1 TABLET BY MOUTH EVERY DAY IN THE MORNING 90 Tablet 2 02/16/2023 Active amLODIPine Besylate 5 MG Oral Tablet (Norvasc)Indications: HTN, goal below 140/90 Take 1 Tablet by mouth every evening. 90 Tablet 3 10/19/2023 Active Lisinopril 20 MG Oral Tablet (Prinivil)Indications :HTN, goal below 140/90 TAKE 1 TABLET BY MOUTH EVERY DAY IN THE MORNING 90 Tablet 2 11/15/2023 Active Simvastatin 20 MG Oral Tablet (Zocor)Indications:Dy slipidemia, goal LDL below 100 TAKE 1 TABLET BY MOUTH EVERY DAY IN THE EVENING 90 Tablet 1 12/05/2023 Active Omeprazole 20 MG Oral Capsule Delayed Release (PriLOSEC)Indications :Gastroesophageal reflux disease with esophagitis without hemorrhage TAKE 1 CAPSULE BY MOUTH EVERY MORNING 90 Capsule 1 12/16/2023 Active documented as of this encounter (statuses as of 03/14/2024) Active Problems Problem Noted Date Diagnosed Date [...] as of this encounter (statuses as of 03/14/2024) Resolved Problems Problem Noted Date Diagnosed Date [...] as of this encounter (statuses as of 03/14/2024) Immunizations Name Administration Dates Next Due COVID-19 [...] Cigarettes 0.5 15 0 09/05/1944 - 09[birth year]05/1959 Smokeless Tobacco: Current Snuff Comments:occasional chew Alcohol Use Standard Drinks/Week Comments [...] on file documented as of this encounter Plan of Treatment Upcoming Encounters Date Type Department Care Team (Late st Contact Info) Description 03/15/2024 3:00 PM EDT Office Visit [facility] [address] [place] [facility] [place] [address] Bibi Santoro MD [address] [facility] [address] 04/11/2024 7:40 AM EDT Laboratory Laboratory, [place] [address] [facility] [place] [phone] [place], Laboratory [address], [place] [id number] 04/18/2024 7:40 AM EDT Office Visit Family Practice, [place] [address] [facility] [place] [phone] Leandro Aldridge MD [address] [place] [address] 08/20/2024 8:00 AM EST Nurse Only Ancillary Department, [place] [address] [place] [address] [place], Nurse Annual Wellness [address], [place] [id number] Health Maintenance Due Date Last Done Comments COVID-19 Vaccine ( season) 2023 07/13/2023, 06/07/2022, 01/25/2022, Additional history exists Influenza Vaccine (FLU shot) (#1) 2024 05/17/2023, 06/01/2022, 05/18/2021, Additional history exists DTaP,Tdap,and Td Vaccines (2 - Td or Tdap) 06/06/2024 06/06/2014, 07/13/2004, 07/13/2004, Additional history exists Depression Screening 07/29/2024 07/29/2023 Albumin/Creatinine Ratio 10/12/2024 024, 10/04/2022, 09/25/2021, Additional history exists CKD PHOS USE SMARTSET 23106 10/12/2024 02/0 03/2024, 10/04/2022, 09/25/2021, Additional history exists HbA1c 10/12/2024 10/12/2023, 10/04/2022 CKD HGB USE SMARTSET 06825 03/12/202503/12, 10/12/2023, 10/04/2022, Additional history exists Pneumococcal [...] Not on filedocumented as of this encounter Procedures Procedure Name Priority Date/Time Associated Diagnosis Comments EKG SCANNED RESULT 03/12/2024 documented in this encounter Results * EKG SCANNED RESULT (03/12/2024) 03/12/2024 No Physician Data Unknown EKG documented in this encounter Care Teams Caterer Helper Relationship Specialty Start Date End Date Leandro Aldridge MD [address] [place] [address] PCP - General 01/03/1998 documented as of this encounter
--- OUTSIDE RECORDS SUMMARY | 2024-03-26 05:52 | External Medical Summary | Summary of Care ---
Author Name Unknown Organization [facility] Address [address] [place] [address] Phone [phone] Care Team Providers Care Dye Tub Operator Name Role Phone Leandro Aldridge MD Primary Care Provider [phone] Encounter Details Date Type Department Care Team (Late st Contact Info) Description 03/14/2024 Orders Only [facility] [address] [place] [address] Leandro Aldridge MD [address] [place] [address] Allergies No known active allergiesdocumented as of [...] mRNA, LNP-s, No Pre serve, 2-Dose Series ([employer]) 07/07/2021 COVID-19, MRNA-LNP, 23-24, P F, 30 MCG/0.3 mL, 12 YRS AND ABOVE, IM ([employer]-Comirnaty) 07/13/2023 COVID-19, mRNA, LNP-s, PF, B ooster, [...] Description 03/15/2024 3:00 PM EDT Office Visit [facility], [place] [address] [place] [facility] [phone] Bibi Santoro MD [address] [facility], [place] [phone] 04/11/2024 7:40 AM EDT Laboratory Laboratory, [place] [address] [place] [facility] [place] [phone] [facility] [address] [facility], [place] [id number] 04/18/2024 7:40 AM EDT Office Visit [facility], [place] [address] [facility] [place] [address] Leandro Aldridge MD [address] [place] [facility] [place] [address] 08/20/2024 8:00 AM EST Nurse Only Ancillary Department, [place] [address] [place] [facility] [place] [address] [place], Nurse Annual Wellness [address] [facility], [place] [phone] Health Maintenance Due Date Last Done Comments COVID-19 Vaccine ( season) 2023 07/13/2023, 06/07/2022, 01/25/2022, Additional history exists Influenza Vaccine (FLU shot) (#1) 2024 05/17/2023, 06/01/2022, 05/18/2021, Additional history exists DTaP,Tdap,and Td Vaccines (2 - Td or Tdap) 06/06/2024 06/06/2014, 07/13/2004, 07/13/2004, Additional history exists Depression Screening 07/29/2024 07/29/2023 Albumin/Creatinine Ratio 10/12/2024 024, 10/04/2022, 09/25/2021, Additional history exists CKD PHOS USE SMARTSET 63999 10/12/2024 02/0 03/2024, 10/04/2022, 09/25/2021, Additional history exists HbA1c 10/12/2024 10/12/2023, 10/04/2022 CKD HGB USE SMARTSET 51039 03/12/202503/12, 10/12/2023, 10/04/2022, Additional history exists Pneumococcal [...] Procedure Name Priority Date/Time Associated Diagnosis Comments XR CHEST 2 VIEWS Routine 03/12/2024 documented in this encounter Results * XR CHEST 2 VIEWS (03/12/2024) Anatomical Region Laterality Modality Chest Other 03/12/[address] DO RADIOLOGY ( RAD GENERAL) documented in this encounter Care Teams Dye Tub Operator Relationship Specialty Start Date End Date Leandro Aldridge MD [address] [place] [address] PCP - General 01/03/1998 documented as of this encounter
--- OUTSIDE RECORDS SUMMARY | 2024-03-26 05:52 | External Medical Summary | Summary of Care ---
Author Name Unknown Organization [facility] Address [address] [place] [address] Phone [phone] Care Team Providers Care Date Night Sitter Name Role Phone Leandro Aldridge MD Primary Care Provider [phone] Encounter Details Date Type Department Care Team (Late st Contact Info) Description 03/13/2024 Orders Only [facility] [address] [place] [address] Leandro Aldridge MD [address] [place] [address] Allergies No known active allergiesdocumented as of this encounter (statuses as of 03/13/2024) Medications Medication Sig Dispensed Refills Start Date [...] as of this encounter (statuses as of 03/13/2024) Active Problems Problem Noted Date Diagnosed Date [...] as of this encounter (statuses as of 03/13/2024) Resolved Problems Problem Noted Date Diagnosed Date [...] as of this encounter (statuses as of 03/13/2024) Immunizations Name Administration Dates Next Due COVID-19 mRNA, LNP-s, No Pre serve, 2-Dose Series (Modern[employer]) 10/31/2020,10/03/2020 COVID-19 mRNA, LNP-s, No Pre serve, 2-Dose Series ([employer]) 07/07/2021 COVID-19, MRNA-LNP, 23-24, P F, 30 MCG/0.3 mL, 12 YRS AND ABOVE, IM ([employer]-Comirnaty) 07/13/2023 COVID-19, mRNA, LNP-s, PF, B ooster, [...] Description 03/15/2024 3:00 PM EDT Office Visit [facility], [place] [address] [place] [facility] [place] [phone] Bibi Santoro MD [address] [facility], [place] [phone] 04/11/2024 7:40 AM EDT Laboratory Laboratory, [place] [address] [place] [facility] [phone] [facility] [address] [facility], [place] [phone] 04/18/2024 7:40 AM EDT Office Visit [facility], [place] [address] [place] [facility] [address] Leandro Aldridge MD [address] [place] [facility] [address] 08/20/2024 8:00 AM EST Nurse Only Ancillary Department, [place] [address] [place] [facility] [address] [place], Nurse Annual Wellness [address] [facility], [place] [phone] Health Maintenance Due Date Last Done Comments COVID-19 Vaccine ( season) 2023 07/13/2023, 06/07/2022, 01/25/2022, Additional history exists Influenza Vaccine (FLU shot) (#1) 2024 05/17/2023, 06/01/2022, 05/18/2021, Additional history exists DTaP,Tdap,and Td Vaccines (2 - Td or Tdap) 06/06/2024 06/06/2014, 07/13/2004, 07/13/2004, Additional history exists Depression Screening 07/29/2024 07/29/2023 Albumin/Creatinine Ratio 10/12/2024 024, 10/04/2022, 09/25/2021, Additional history exists CKD HGB USE SMARTSET 96316 10/12/202403/12, 10/12/2023, 10/04/2022, Additional history exists CKD PHOS USE SMARTSET 70369 10/12/2024 02/0 03/2024, 10/04/2022, 09/25/2021, Additional history exists HbA1c 10/12/2024 10/12/2023, 10/04/2022 Pneumococcal Vaccine: 65+ Years Completed 06/09/2015, 05/06/2015, [...] Procedure Name Priority Date/Time Associated Diagnosis Comments CHEMISTRY-OUTSIDE Routine 03/12/2024 documented in this encounter Results * CHEMISTRY-OUTSIDE (03/12/2024) Not all results display below - see scan for full detail OUTSIDE LAB (SEE SCANNED REPORT) Comment:SCAN INCL: BMP,PT, I NR, PTT, CBCD,UA, TYPE/SCR CREATININE-OUTSID E LAB 1.00 0.6 - 1.4 MG/DL OUTSIDE LAB (SEE SCANNED REPORT) EGFR-OUTSIDE LAB 66.9 OUT SIDE LAB (SEE SCANNED REPORT) POTASSIUM-OUTSIDE LAB 4.1 3.5 - 5.1 MMOL/L OUTSIDE LAB (SEE SCANNED REPORT) GLUCOSE-OUTSIDE LAB 99 70 - 99 MG/DL OUTSIDE LAB (SEE SCANNED REPORT) HOURS FASTING OUTSID E LAB (SEE SCANNED REPORT) TRIGLYCERIDES-OUT SIDE LAB OUTSIDE LAB (SEE SCANNED REPORT) CHOLESTEROL-OUTSI DE LAB OUTSIDE LAB (SEE SCANNED REPORT) HDL-OUTSIDE LAB OUTS [facility]RA LAB (SEE SCANNED REPORT) CHOL/HDL RATIO-OUTSIDE LAB OUTSIDE LA B (SEE SCANNED REPORT) LDL (CALCULATED)-OUTS ANDRA LAB OUTSIDE LAB (SEE SCANNED REPORT) LDL (DIRECT MEASURE)-OUTSIDE LAB OUTSIDE LAB (SEE SCANNED REPORT) HEMOGLOBIN, C6R-NUDHJOA LAB OUTSIDE LAB (SEE SCANNED REPORT) PHOSPHORUS-OUTSID E LAB OUTSIDE LAB (SEE SCANNED REPORT) PTH-OUTSIDE LAB OUTS ANDRA LAB (SEE SCANNED REPORT) MICROALBUMIN RATIO-OUTSIDE LAB OUTSIDE LA B (SEE SCANNED REPORT) PROTEIN, UA-OUTSIDE LAB OUTSIDE LAB (SEE SCANNED REPORT) HGB 14.8 14.0 - 18.0 G/DL OUTSIDE LAB (SEE SCANNED REPORT) 03/12/[address] DO LABORATORY OUTSIDE LAB (SEE SCANNED REPORT) documented in this encounter Care Teams Date Night Sitter Relationship Specialty Start Date End Date Leandro Aldridge MD [address] [place] [address] PCP - General 01/03/1998 documented as of this encounter
[2024-03-26] MEDS: CeleBREX 200 MG CAP PO SCH (06:17)
[2024-03-26] MEDS: LR 15ML/HR IV SCH (06:17)
[2024-03-26] MEDS: GABAPENTIN 300 MG CAP PO SCH (06:17)
[2024-03-26] MEDS: ACETAMINOPHEN 500 MG TAB PO SCH (06:17)
[2024-03-26] MEDS: LR 60ML/HR IV SCH (06:17)
[2024-03-26] MEDS ORDERED: ATROPINE SULFATE 0.1 MG/ML 10ML SYR IV PRN (07:05)
[2024-03-26] MEDS ORDERED: fentaNYL citrate PF 100 MCG/2 ML VIAL IV PRN (07:05)
[2024-03-26] MEDS ORDERED: ePHEDrine sulfate 50 MG/ML AMP IV PRN (07:05)
[2024-03-26] MEDS ORDERED: ONDANSETRON INJ 2 MG/ML 2 ML VIAL IV PRN ×2 (07:05→11:33)
[2024-03-26] MEDS ORDERED: ROCURONIUM BROMIDE 10 MG/ML 5 ML VIAL IV ONE (07:07)
[2024-03-26] MEDS ORDERED: PROPOFOL IV EMULSION 10 MG/ML 20 ML VIAL IV ONE (07:07)
[2024-03-26] MEDS ORDERED: ONDANSETRON INJ 2 MG/ML 2 ML VIAL ONE (07:07)
[2024-03-26] MEDS ORDERED: LIDOCAINE 2% 2 ML VIAL/AMP(20MG/ML) INFIL ONE (07:07)
[2024-03-26] MEDS ORDERED: SUGAMMADEX SODIUM 200 MG/2 ML VIAL IV ONE (07:07)
[2024-03-26] MEDS ORDERED: fentaNYL citrate PF 100 MCG/2 ML VIAL ONE (07:07)
--- NOTE | 2024-03-26 07:38 | History & Physical Bridge Note ---
Date of Service March 26, 2024 History & Physical Bridge Note I have examined the patient, reviewed the History & Physical and in the interval since the performance of the History & Physical I have noted the following changes of clinical significance: no changes noted
--- NOTE | 2024-03-26 07:39 | History & Physical Report ---
Date of Service March 26, 2024 Assessment & Plan (1) Myelopathy concurrent with and due to spinal stenosis of cervical region: Plan: C3-C6 anterior cervical discectomy and fusion, C4 corpectomy History of Present Illness Chief Complaint: Neck and arm pain Primary Care Provider: Leandro Aldridge MD This is an 88-year-old male with chronic persistent neck and arm pain a failed course of nonoperative care is here for surgical intervention. Allergies Allergy/AdvReac Type Severity Reaction Status Date / Time No Known Allergies Allergy Verified 03/26/24 06:07 Home Medications Medication Instructions Recorded Confirmed Type omeprazole 20 mg tablet,delayed 20 mg PO QAM Heartburn 05/02/19 03/26/24 History release aspirin 81 mg tablet,delayed 81 mg PO QAM 11/07/19 03/26/24 History release (Adult Aspirin Regimen) amlodipine 5 mg tablet 5 mg PO QAM 03/13/24 03/26/24 History cholecalciferol (vitamin D3) 25 25 mcg PO QAM 03/13/24 03/26/24 History mcg (1,000 unit) tablet (Vitamin D3) diphenhydramine 25 1 tab PO HS PRN pain/sleep 03/13/24 03/26/24 History mg-acetaminophen 500 mg tablet (Tylenol PM Extra Strength) doxycycline hyclate 100 mg capsule 100 mg PO .COMPLEX rosacea 03/13/24 03/26/24 History lisinopril 20 mg tablet 20 mg PO QAM 03/13/24 03/26/24 History simvastatin 20 mg tablet 20 mg PO QPM 03/13/24 03/26/24 History Past Med/Surg History Problem List (Updated 03/26/24 @ 07:[address] DO) Myelopathy concurrent with and due to spinal stenosis of cervical region Encounter for pre-operative examination Carpal tunnel syndrome, left Hyperlipidemia GERD (gastroesophageal reflux disease) History of SCC (squamous cell carcinoma) of skin (Acute) History of basal cell carcinoma (Acute) Hypertension (Chronic) Medical History (Updated 03/26/24 @ 07:[address] DO) Prediabetes CKD (chronic kidney disease) stage 3, GFR 30-59 ml/min History of Mohs micrographic surgery for skin cancer Hx of colonic polyps Rosacea Hx of squamous cell carcinoma Hx of basal cell carcinoma GERD (gastroesophageal reflux disease) Hyperlipidemia Hypertension Surgical History S/P epidural steroid injection lumbar History of colonoscopy S/P inguinal hernia repair right S/P carpal tunnel release left History of repair of rotator cuff (~2018) right Family History Other No pertinent family history Social History (Updated 05/03/19 @ 08:47 by Martha Arboleda) Smoking Status: Former smoker Tobacco Type: Cigarettes Smoking End Date: 1985; Second Hand Exposure: No; Do You Dip or Chew Tobacco: Yes (occasionally (advised on policy)); Tobacco Cessation Education Requested by Patient: No Hx Alcohol Use: No Hx Substance Use: No Preferred Language: French Communication Ability: Effective Consulting Application Engineer Required: No Beliefs That Will Affect Care: Evangelical Evangelical Beliefs: Zoroastrian Current Living Situation: Family Current Living Situation Comment: lives with Daughter in law Other Information That Helps Us Care for You: No Assistive Devices: Denture - Lower and Glasses Physical Exam Physical Exam: Patient is alert and oriented heart regular in rhythm Lungs clear Results & Data Results & Data Vital Signs (Past 12 Hours) Vital Signs Temp Pulse Resp BP Pulse Ox O2 Del Method 03/26/24 06:33 36.5 C 65 20 167/92 H 93 Room Air
[2024-03-26] MEDS: ceFAZolin 2000MG 2,000 MG/15 ML SYR IV SCH ×2 (07:47→16:01)
[2024-03-26] MEDS ORDERED: DEXAMETHASONE SOD INJ 4 MG/ML VIAL ONE (08:03)
[2024-03-26] MEDS ORDERED: HYDROmorphone INJ 2 MG/ML SYR/VIAL ONE (08:22)
[2024-03-26] MEDS: ceFAZolin 330 MG/ML 1 GM VIAL ONE (08:25)
--- NOTE | 2024-03-26 09:38 | Operative Report ---
Post Operative Report Pre & Post Diagnosis Operation Date: 03/26/24 07:45 Pre-Op Diagnosis: Cervical myelopathy Post-Op Diagnosis: Same I identified the patient and participated in the time-out.: Yes Procedure Operation Date: 03/26/24 07:45 Actual Procedures #1 anterior cervical corpectomy with bilateral foraminotomies C4. #2 anterior cervical discectomy with bilateral foraminotomies C5-C6. #3 anterior cervical arthrodesis C3 to see 5 and C5-C6. #4 placement of Spira 25 mm cage C3-C5 and 7 mm cage C5-C6. #5 placement locally harvested morselized autograft combined with os design bone graft interbody cages. #6 application of K2 M plate and screws from C3-C6. Surgeon Og Lane, Resistor Inspector Analisa Lui Estimated Blood Loss 10 Findings Consistent with Post-Op Diagnosis Specimens None Indications This is an 88-year-old male presents with above-mentioned diagnosis of failed course of nonoperative care is here for surgical invention. Description of Procedure Patient is identified informed was obtained. Patient was then taken to the operative suite underwent ablation placed in the supine position on the [facility] to [place] splitter head. All bony prominences well-padded eyes inspected to ensure no external pressure placed upon them. This point the anterior cervical spine was prepped and draped in normal sterile fashion. I then placed a longitudinal incision along the right anterior aspect of the cervical spine extending from C3-C5. Blunt dissection with the assistance of bipolar electrocautery is then formed down to expose the anterior cervical spine from C3 to see 6. Self-retaining retractors placed. I performed a Complete discectomy of C3-C4 out to the uncovertebral notch bilaterally followed by C4-C5. [place] distracting pins again utilized. I removed all posterior annular fibers. [place] distracting pins were then placed in C3 and see 5 to distract across the C4 vertebral body. Complete corpectomy was then performed including removal of all posterior annular fibers longitudinal ligament bilateral foraminotomies. Endplates burred to subcortical bleeding bone and a 25 mm spiral cage filled locally harvested morselized autograft and os design bone graft tapped into position. I then proceeded to C5-C6. Complete discectomy was then performed up to the ankle vertebral joints bilaterally. [place] distracting pins again utilized. I removed all posterior annular fibers and bilateral foraminotomies performed. Endplates were to subcortical bleeding bone and a 7 mm spiral cage filled locally harvested morselized autograft and os design tapped in position. Distracting apparatus was removed. All anterior osteophytes burred to a smooth cortical surface and a K2 M plate and screws applied with the assistance of fluoroscopy. The incision was then copiously irrigated explored to ensure no damage to surrounding structures remaining bleeding. 10 round BRIANDA drain inserted. The incision was then closed with 2 Vicryl in the fascia and 4 Monocryl for final skin closure. Steri-Strips sterile dressing placed. Patient awakened PACU in stable condition. Please note spinal cord monitoring was utilized at the procedure no changes noted. Lastly Analisa Lui was present at the entire surgeon while the patient positioning complex portions of the surgery and final skin closure. Im ordering 10 grams of Triple [place] Collagen Powder (Second & Fourth A6010) to treat an incision wound that was caused by a spine procedure. The incision is approximately 2 cm(W) x 4 cm(L) into the joint (D) in size and is a full thickness wound. Triple [place] collagen comes in 1 gram packets so 10 packets were ordered. Given the size of the wound, with light to moderate exudate I chose to order a 10 day supply. The patient will be provided instructions for proper application of the collagen wound kit. The patient will be asked to apply the collagen powder daily and then cover it with sterile dressings dispensed. Collagen was selected as I expect the collagen to attract monocytes and fibroblasts, act as a sacrificial substrate for MMPs, and ultimately proved a matrix for tissue and vessel growth. The collagen will act as a primary dressing in this scenario. It is medically necessary for proper healing of these wounds to improve bioavailability and contact with each wound surface, this is also to help prevent infection of wounds and promote healing ultimately leading to a better healing outcome and limit the risk of infection. I attest to the content of the Intraoperative Record and any orders documented therein. Any exceptions are noted below.
--- NOTE | 2024-03-26 11:13 | Fluoroscopy Report ---
FL cervical 2-3V CLINICAL HISTORY: C3-C6 ACDF C4 CORPECTOMY COMPARISON STUDY: None. FLUOROSCOPY TIME: 17 seconds FLUOROSCOPY IMAGES: 3 Ka,r: 2.7 mGy FINDINGS: Anterior cervical discectomy and fusion from C3 through C6 with C4 corpectomy and cage. The hardware appears intact. Partial visualization of an endotracheal tube and surgical sponge at the re section site. IMPRESSION: Fluoroscopic assistance as above. ACT 112: Negative or not required by law. Electronically signed by: Valente Juan M.D. 03/26/2024 11:12 AM
[2024-03-26] MEDS ORDERED: SOD PHOSPHATE/SOD BIPHOSPHATE ENEMA 132 ML BTL PR PRN (11:33)
[2024-03-26] MEDS ORDERED: DO NOT ADMINISTER FLU VACCINE PRN (11:33)
[2024-03-26] MEDS ORDERED: ONDANSETRON 4 MG OD TAB PO PRN (11:33)
[2024-03-26] MEDS ORDERED: PROMETHAZINE HCL 12.5 MG in SODIUM CHLORIDE 0.9% 50 ML IV PRN (11:33)
[2024-03-26] MEDS ORDERED: diphenhydrAMINE Capsule 25 MG CAP PO PRN (11:33)
[2024-03-26] MEDS ORDERED: NALOXONE HCL 0.4 MG/1 ML VIAL/CARP IV PRN (11:33)
[2024-03-26] MEDS ORDERED: dexAMETHasone 8 MG in SYRINGE 0 ML IV PRN (11:33)
[2024-03-26] MEDS ORDERED: traMADol HCL 50 MG TABLET PO PRN (11:33)
[2024-03-26] MEDS ORDERED: FAMOTIDINE 20 MG TAB PO PRN (11:33)
[2024-03-26] MEDS ORDERED: oxyCODONE HCL IR 5 MG TAB (IMMEDIATE RELEASE) PO PRN (11:33)
[2024-03-26] MEDS ORDERED: HYDROmorphone INJ 0.5 MG/0.5 ML SYR IV PRN (11:33)
[2024-03-26] MEDS ORDERED: MAGNESIUM HYDROXIDE SUSP 30 ML UDC PO PRN (11:33)
[2024-03-26] MEDS ORDERED: hydrOXYzine HCl 25 MG TAB PO PRN (11:33)
[2024-03-26] MEDS ORDERED: LORazepam 0.5 MG in SYRINGE 0.25 ML IV PRN (11:33)
[2024-03-26] MEDS ORDERED: DO NOT ADMINISTER PNEUMOCOCCAL VACCINE PRN (11:33)
[2024-03-26] MEDS ORDERED: RACEPINEPHRINE 2.25% NEBU SOLN 0.5 ML VIAL INH PRN (11:33)
[2024-03-26] MEDS ORDERED: HYDROmorphone INJ 1 MG/ML SYRINGE IV PRN (11:33)
[2024-03-26] MEDS ORDERED: bisacodyL 10 MG SUPP PR PRN (11:33)
[2024-03-26] MEDS ORDERED: METOCLOPRAMIDE HCL INJ 5 MG/ML 2 ML VIAL IV PRN (11:33)
[2024-03-26] MEDS ORDERED: ALUMINUM/MAGNESIUM SUSP 30 ML UDC PO PRN (11:33)
[2024-03-26] MEDS ORDERED: LORazepam 0.5 MG TAB PO PRN (11:33)
--- NOTE | 2024-03-26 11:38 | Anesthesiology Progress Note ---
Date of Service March 26, 2024 Anesthesia Post Procedure Vital Signs Vital Signs: Temp Pulse Pulse Resp BP Pulse Ox O2 Del Method 03/26/24 11:05 70 20 148/71 H 98 Nasal Cannula 03/26/24 10:55 76 20 146/73 H 97 Nasal Cannula 03/26/24 10:45 71 17 125/81 96 Nasal Cannula 03/26/24 10:35 97.5 F L 67 20 145/75 H 95 Nasal Cannula 03/26/24 10:25 73 19 141/81 H 93 Nasal Cannula 03/26/24 10:15 67 12 148/72 H 94 Nasal Cannula 03/26/24 10:05 73 18 152/81 H 94 Nasal Cannula 03/26/24 09:55 72 17 181/93 H 94 Nasal Cannula 03/26/24 09:49 96.8 F L 78 12 205/80 H 100 Nasal Cannula 03/26/24 06:33 97.7 F 65 20 167/92 H 93 Room Air O2 Flow Rate 03/26/24 11:05 2 03/26/24 10:55 3 03/26/24 10:45 3 03/26/24 10:35 3 03/26/24 10:25 4 03/26/24 10:15 5 03/26/24 10:05 5 03/26/24 09:55 5 03/26/24 09:49 5 03/26/24 06:33 Transfer of Care Handoff Completed per policy Notes Mental Status: alert / awake / arousable and participated in evaluation Patient Amnestic to Procedure: Yes Nausea / Vomiting: adequately controlled Pain: adequately controlled Airway Patency, RR, SpO2: stable & adequate BP & HR: stable & adequate Hydration State: stable & adequate Anesthetic Complications: no major complications apparent and Pt Satisfied with anesthetic care
[2024-03-26] MEDS: SODIUM CHLORIDE 0.9% 1,000 ML IV SCH (11:46)
[2024-03-26] MEDS: FLOSEAL HEMOSTATIC MATRIX 10ML TOP ONE (12:27)
--- NOTE | 2024-03-26 12:39 | Consultation ---
Date of Consultation March 26, 2024 Assessment & Plan (1) Myelopathy concurrent with and due to spinal stenosis of cervical region: (2) Hypertension: (3) CKD (chronic kidney disease) stage 3, GFR 30-59 ml/min: Plan Mr. Montoya is an 88 year old male that presents to the [facility] for an elective C3-C6 ACDF with C4 corpectomy under the care of Dr. Lane after failed conservative management for persistent B/L UE discomfort. Intraoperatively, minimal blood loss of 10mL. Additional PMH includes HTN, CKD3, prediabetes, and GERD. No history of AMI or CVA. Myelopathy concurrent with and due to spinal stenosis of cervical region: Acute POD#0 s/p C3-C6 ACDF Under the care of Dr. Lane. Per ortho for pain control, wound care, anticoagulation and activities. Monitor H&H, Preop hemoglobin 14.8 on 03/12; trend continue incentive spirometry PT/OT when appropriate HTN: Chronic Takes amlodipine and lisinopril; continue HLD: Chronic Takes simvastatin;continue CKD stage III: Chronic Serum creatinine to be rechecked Rosacea: Chronic Takes Doxycycline;continue GERD: Chronic Takes omeprazole;continue Disposition: PCP: Dr. Aldridge CODE STATUS: Full code VTE prophylaxis: Per admitting team I spent a total of minutes coordinating, documenting, and providing care for this patient excluding time spent in the performance of separately billed services. All of the aforementioned completed while collaborating with the assigned attending physician for a full treatment plan. Please see their addendum for further details. Supervising Physician Co-Signing Physician Notes Pt was seen and examined by myself, Ingrid Ricardo MD on the day of service. Care was coordinated with SAMUEL Agustin. 88yoM s/p anterior cervical discectomy with bilateral foraminotomies and c4 anterior cervical corpectomy. Hx of HTN, HLD, reflux esophagitis, CKD, Vit D def, Prediabetes, known tremor. Continue home meds as ordered, on doxycycline prescribed by Dermatology for Roseacea. Otherwise as above. I spent a total [id number] coordinating, documenting, and providing care for this patient excluding time spent in the performance of separately billed services History of Present Illness Requesting Physician: Dr. Lane Reason for Consultation: post op medical management Attending Physician: Og Lane, DO History of Present Illness Mr. Montoya is an 88 y ear old male that presents to the [facility] for an elective C3-C6 ACDF under the care of Dr. Lane after failed conservative management. Intraoperatively, minimal blood loss of 10mL. Additional PMH includes HTN, CKD3, prediabetes, and GERD. No history of AMI or CVA. Post-operatively, patient is doing well. Patient is AAOx4 and currently not in any pain. C-collar in place with continuous pulse ox SpO2 94 to 95% and he does remain on 1 LNC. Reportedly has minimal neuropathy bilateral upper extremities which is improved from prior preop symptoms. Has not voided post removal of Parrish at this time. Patient does not report passing flatulence. He had Mohs surgery on his right arm years ago and does take doxycycline as a home medication for his rosacea management. Pt lives at home with his DIL; his son two years ago. [facility]. We appreciate it. Please feel free to contact us 28/03 with any questions or concerns. Allergies Allergy/AdvReac Type Severity Reaction Status Date / Time No Known Allergies Allergy Verified 03/26/24 06:07 Home Medications Medication Instructions Recorded Confirmed Type omeprazole 20 mg tablet,delayed 20 mg PO QAM Heartburn 05/02/19 03/26/24 History release aspirin 81 mg tablet,delayed 81 mg PO QAM 11/07/19 03/26/24 History release (Adult Aspirin Regimen) amlodipine 5 mg tablet 5 mg PO QAM 03/13/24 03/26/24 History cholecalciferol (vitamin D3) 25 25 mcg PO QAM 03/13/24 03/26/24 History mcg (1,000 unit) tablet (Vitamin D3) diphenhydramine 25 1 tab PO HS PRN pain/sleep 03/13/24 03/26/24 History mg-acetaminophen 500 mg tablet (Tylenol PM Extra Strength) doxycycline hyclate 100 mg capsule 100 mg PO .COMPLEX rosacea 03/13/24 03/26/24 History lisinopril 20 mg tablet 20 mg PO QAM 03/13/24 03/26/24 History simvastatin 20 mg tablet 20 mg PO QPM 03/13/24 03/26/24 History oxycodone 5 mg tablet 5 mg PO Q6H PRN pain #20 tabs 03/26/24 03/26/24 Rx tramadol 50 mg tablet 50 mg PO Q6H PRN pain, moderate 03/26/24 03/26/24 Rx #30 tabs Patient History Medical History Prediabetes History of Mohs micrographic surgery for skin cancer Hx of colonic polyps Rosacea Hx of squamous cell carcinoma Hx of basal cell carcinoma GERD (gastroesophageal reflux disease) Hyperlipidemia Surgical History S/P epidural steroid injection lumbar History of colonoscopy S/P inguinal hernia repair right S/P carpal tunnel release left History of repair of rotator cuff (~2017) right Family History Other No pertinent family history Social History Smoking Status: Former smoker Tobacco Type: Cigarettes Smoking End Date: 1985; Second Hand Exposure: No; Do You Dip or Chew Tobacco: Yes (occasionally (advised on policy)); Tobacco Cessation Education Requested by Patient: No Hx Alcohol Use: No Hx Substance Use: No Preferred Language: Nicaraguan Communication Ability: Effective Traffic Or System Dispatcher Required: No Beliefs That Will Affect Care: L[employer] L[employer] Beliefs: [employer] Current Living Situation: Family Current Living Situation Comment: lives with Daughter in law Other Information That Helps Us Care for You: No Assistive Devices: Denture - Lower and Glasses Review of Systems Review of Systems: Neuro: (-) Falls, trauma, slurred speech (+) neuropathy minimal B/L UE HEENT: (-) DÍAZ, dizziness, dysphagia, visual or auditory changes CV: (-) CP, palpitations, swelling Resp: (-) SOB GI: (-) appetite changes, N/V/D, bowel changes : (-) urinary changes Skin: (-) rashes Psych: (-) anxiety, depression Physical Exam Physical Exam: Neuro: AAOx4, PERRLA, no aphagia, memory changes, CNII-XII grossly intact HEENT: head normocephalic, moist mucus membranes CV: S1/S2, (-) M/G/R, (-) edema, cap refill < 3 seconds. BRIANDA Drain x1 with nayeli red bloody output Resp: Lungs CTA in all chavez. On 1LNC post op. GI: Abdomen S/NT/ND, Ax4 bowel sounds, (-) CVA tenderness Musculoskeletal: 5/5 B/L UE strength, 5/5 B/L LE strength. Did not observe gait dependence. Skin: (-) rashes , (-) erythema. Psych: euthymic mood Results & Data Vital Signs (Past 12 Hours) Vital Signs Temp Pulse Pulse Resp BP Pulse Ox O2 Del Method 03/26/24 12:25 36.5 C 77 16 147/72 H 95 Nasal Cannula 03/26/24 12:04 36.3 C L 80 16 145/84 H 93 Nasal Cannula 03/26/24 11:51 36.5 C 74 18 151/72 H 94 Nasal Cannula 03/26/24 11:42 80 16 93 Room Air 03/26/24 11:05 70 20 148/71 H 98 Nasal Cannula 03/26/24 10:55 76 20 146/73 H 97 Nasal Cannula 03/26/24 10:45 71 17 125/81 96 Nasal Cannula 03/26/24 10:35 36.4 C L 67 20 145/75 H 95 Nasal Cannula 03/26/24 10:25 73 19 141/81 H 93 Nasal Cannula 03/26/24 10:15 67 12 148/72 H 94 Nasal Cannula 03/26/24 10:05 73 18 152/81 H 94 Nasal Cannula 03/26/24 09:55 72 17 181/93 H 94 Nasal Cannula 03/26/24 09:49 36 C L 78 12 205/80 H 100 Nasal Cannula 03/26/24 06:33 36.5 C 65 20 167/92 H 93 Room Air O2 Flow Rate 03/26/24 12:25 1 03/26/24 12:04 1 03/26/24 11:51 1 03/26/24 11:42 03/26/24 11:05 2 03/26/24 10:55 3 03/26/24 10:45 3 03/26/24 10:35 3 03/26/24 10:25 4 03/26/24 10:15 5 03/26/24 10:05 5 03/26/24 09:55 5 03/26/24 09:49 5 03/26/24 06:33 Diagnostic Findings Cervical Spine X-Ray 03/26/24 07:45 FL cervical 2-3V CLINICAL HISTORY: C3-C6 ACDF C4 CORPECTOMY COMPARISON STUDY: None. FLUOROSCOPY TIME: 17 seconds FLUOROSCOPY IMAGES: 3 Ka,r: 2.7 mGy FINDINGS: Anterior cervical discectomy and fusion from C3 through C6 with C4 corpectomy and cage. The hardware appears intact. Partial visualization of an endotracheal tube and surgical sponge at the resection site. IMPRESSION: Fluoroscopic assistance as above. ACT 112: Negative or not required by law. Electronically signed by: Valente Juan M.D. 03/26/2024 11:12 AM
[2024-03-26] MEDS ORDERED: ACETAMINOPHEN 1,000 MG/100 ML VIAL IV PRN (14:00)
[2024-03-26] MEDS ORDERED: ACETAMINOPHEN 500 MG TAB PO PRN (14:00)
[2024-03-26] MEDS: dexAMETHasone 6 MG in SYRINGE 0 ML IV SCH (15:06)
[2024-03-26] MEDS: SIMVASTATIN 20 MG TAB PO SCH (21:51)
[2024-03-26] MEDS: DOCUSATE SODIUM/SENNA 50/8.6MG TAB PO SCH (21:51)
[2024-03-26] MEDS: COUGH DROP (SUGAR FREE) LOZ 24 LOZ/1 BOX BUCCAL PRN (22:06)
[2024-03-27] MEDS: POLYETHYLENE (MIRALAX) 17 GM PACK PO SCH (05:40)
[2024-03-27] MEDS: ASPIRIN 81 MG ECTAB PO SCH (07:50)
[2024-03-27] MEDS: lisinopril 20 MG TAB PO SCH (07:50)
[2024-03-27] MEDS: PANTOprazole 40 MG TAB PO SCH (07:50)
[2024-03-27] MEDS: CHOLECALCIFEROL 25 MCG (1000 UNITS) TAB PO SCH (07:50)
[2024-03-27] MEDS: amLODIPine BESYLATE 5 MG TAB PO SCH (07:50)
--- NOTE | 2024-03-27 08:44 | Hospitalist Progress Note ---
Date of Service March 27, 2024 Assessment & Plan (1) Myelopathy concurrent with and due to spinal stenosis of cervical region: (2) Hypertension: (3) CKD (chronic kidney disease) stage 3, GFR 30-59 ml/min: Plan Carlos Montoya is an 88y/o M that presents to the [facility] for an elective C3-C6 ACDF with C4 corpectomy under the care of Dr. Lane after failed conservative management for persistent B/L UE discomfort. Intraoperatively, minimal blood loss of 10mL. Additional PMH includes HTN, CKD3, prediabetes and GERD. No history of AMI or CVA. Myelopathy Concurrent With and Due to Spinal Stenosis of Cervical Region POD#1 s/p C3-C6 ACDF and C4 corpectomy with Dr. Lane. Per ortho for pain control, wound care, anticoagulation and activities. Continue incentive spirometry, PT/OT when appropriate per ortho. Monitor H/H for acute blood loss anemia and transfuse blood products AL Pre-op Hgb 14.8 on 03/12 --> Post-op Hgb 14.4 on 03/27 [stable]. HTN Chronic, stable. Takes amlodipine and lisinopril; continue. Hyperlipidemia Chronic, stable. Takes simvastatin; continue. CKD Stage III Baseline creatinine ~1.2-1.5 per chart review. BMP pending - will follow. Avoid nephrotoxic medications when able. H/O Rosacea Pt follows / [facility] Dermatology. Takes Doxycycline 100mg every other day; can continue. GERD Chronic, stable. Takes omeprazole; continue. DVT Prophylaxis: SCDs - As per primary orthopedic team Code Status: FULL CODE PCP: Leandro Aldridge MD Disposition: Patient admitted in Med/Surg, discharge planning as per primary orthopedic surgery team. We will continue to follow the patient with you during their hospital stay. You can reach a member of the [facility] Team 28/03 via [employer]. Patient seen in collaboration with Dr. George. Please see addendum. I spent a total of 25 minutes coordinating, documenting, and providing care for this patient excluding time spent in the performance of separately billed services. This included personally reviewing all current laboratories and imagin g studies, medical reconciliation, outpatient chart review and discussion with specialists. This chart was completed in part utilizing Speech Voice Recognition Software. Grammatical errors, random word insertions, pronoun errors, and incomplete sentences are an occasional consequence of this system due to software limitations, ambient noise, and hardware issues. Any formal questions or concerns about the content, text, or information contained within the body of this dictation should be directly addressed to the provider for clarification. Admission and Anticipated Discharge Date Admission Date: March 26, 2024 Supervising Physician Co-Signing Physician Notes I have seen and discussed the case with the collaborating advanced practitioner. I agree with the above PN. I have reviewed and confirmed the patients medical history, the findings on physical examination, and the patients diagnosis and treatment plan with Nereyda BARKER and agree with the information documented. Evaluated at bedside---reports eagerness to get home. Denies any new concerns, Stable for medical discharge. CTM home regimen I spent a total of 15 minutes coordinating, documenting, and providing care for this patient excluding time spent in the performance of separately billed services. All of the aforementioned completed outside of collaborating with the assigned advanced practitioner for a full treatment plan. I have reviewed the advanced practitioner's documentation, and I agree with, and take responsibility for the plan of care Subjective Patient seen and examined at bedside in room E319-1. Patient reports he is doing well; Has been out of bed moving without issue, minimal pain. Parrish cath has been removed. He is urinating without issue in the toilet and urinal. He denies any SOB, chest pain or dizziness/lightheadedness. Cervical collar and BRIANDA drain x [address]. Review of Systems Review of Systems: At least ten systems reviewed and negative, except as noted in the HPI. Physical Exam Physical Exam: General: WD/WN, NAD, sitting up in chair at bedside eating breakfast, pleasant, conversing appropriately. A+Ox3, euthymic affect. HEENT: Normocephalic, atraumatic. PERRL, conjunctivae normal, anicteric sclerae. External ear and nose normal, oropharynx normal. Neck: Normal visual inspection, post-operative neck collar in place, BRIANDA drain x 1 w/ nayeli red bloody output. Respiratory: Normal respiratory effort, lungs clear to auscultation, no accessory muscle use, 93% SpO2 on RA. Cardiovascular: Regular rate, rhythm, no murmur, normal peripheral pulses, no BLE edema. Vessels: No JVD. Abdomen/GI: Normal bowel sounds, soft, nontender, no hepatosplenomegaly. Extremities/Musculoskeletal: No cyanosis or clubbing, extremities motor strength not formally tested. Neurologic: EOMI, accommodation nl, no face palsy, no dysarthria, did not observe gait dependence. Skin: No rashes, normal color, warm/dry. Results & Data Results & Data Vital Signs (Past 12 Hours) Vital Signs Temp Pulse Pulse Resp BP Pulse Ox O2 Del Method 03/27/24 08:00 Room Air 03/27/24 08:00 96 H 16 93 Room Air 03/27/24 07:53 36.7 C 86 18 145/72 H 98 Room Air 03/27/24 06:27 36.7 C 90 16 162/76 H 95 Room Air 03/27/24 04:36 36.7 C 86 16 169/83 H 98 Nasal Cannula 03/27/24 03:00 88 23 97 Nasal Cannula 03/27/24 02:27 36.7 C 91 H 16 161/78 H 94 Nasal Cannula 03/27/24 00:35 36.6 C 83 16 158/82 H 95 Nasal Cannula 03/26/24 23:00 84 17 97 Nasal Cannula 03/26/24 22:42 36.5 C 90 18 164/81 H 94 Room Air O2 Flow Rate 03/27/24 08:00 03/27/24 08:00 03/27/24 07:53 03/27/24 06:27 03/27/24 04:36 1 03/27/24 03:00 2 03/27/24 02:27 1 03/27/24 00:35 1 03/26/24 23:00 1 03/26/24 22:42 Diagnostic Findings Cervical Spine X-Ray 03/26/24 07:45 FL cervical 2-3V CLINICAL HISTORY: C3-C6 ACDF C4 CORPECTOMY COMPARISON STUDY: None. FLUOROSCOPY TIME: 17 seconds FLUOROSCOPY IMAGES: 3 Ka,r: 2.7 mGy FINDINGS: Anterior cervical discectomy and fusion from C3 through C6 with C4 corpectomy and cage. The hardware appears intact. Partial visualization of an endotracheal tube and surgical sponge at the resection site. IMPRESSION: Fluoroscopic assistance as above. ACT 112: Negative or not required by law. Electronically signed by: Valente Juan M.D. 03/26/2024 11:12 AM Medications Administered Amlodipine Besylate (Amlodipine Besylate 5 Mg Tab) [facility] Stop: 04/26/24 08:59 Last Admin: 03/27/24 07:50 Dose: 5 mg Documented By: SHERINE Aspirin (Aspirin 81 Mg Ectab) 81 [facility] Stop: 04/26/24 08:59 Last Admin: 03/27/24 07:50 Dose: 81 mg Documented By: SHERINE Lisinopril (Lisinopril 20 Mg Tab) 20 [facility] Stop: 04/26/24 08:59 Last Admin: 03/27/24 07:50 Dose: 20 mg Documented By: SHERINE Menthol (Cough Drop (Sugar Free) Samara 24 Samara/1 Box) 1 samara BUCCAL PRN PRN PRN Reason: Sore Throat Stop: 04/25/24 21:53 Last Admin: 03/26/24 22:06 Dose: 1 samara Documented By: JOAQUÍN Pantoprazole Sodium (Pantoprazole 40 Mg Tab) 40 mg PO [facility] Stop: 04/26/24 08:59 Last Admin: 03/27/24 07:50 Dose: 40 mg Documented By: SHERINE Polyethylene Glycol (Polyethylene (Miralax) 17 Gm Pack) 17 gm PO Q6 [facility] Stop: 04/26/24 05:59 Last Admin: 03/27/24 05:40 Dose: 17 gm Documented By: JOAQUÍN Senna/Docusate Sodium (Docusate Sodium/Senna 50/8.6mg Tab) 2 tab PO HS [facility] Stop: 04/25/24 20:59 Last Admin: 03/26/24 21:51 Dose: 2 tab Documented By: JOAQUÍN Simvastatin (Simvastatin 20 Mg Tab) 20 mg PO QPM [facility] Stop: 04/25/24 20:59 Last Admin: 03/26/24 21:51 Dose: 20 mg Documented By: JOAQUÍN Vitamin D (Cholecalciferol 25 Mcg (1000 Units) Tab) 25 mcg [facility] Stop: 04/26/24 08:59 Last Admin: 03/27/24 07:50 Dose: 25 mcg Documented By: SHERINE Discontinued Medications Acetaminophen (Acetaminophen 500 Mg Tab) 1,000 mg PO PREOP [facility] Stop: 03/26/24 18:00 Last Admin: 03/26/24 06:17 Dose: 1,000 mg Documented By: DSW Cefazolin Sodium (Cefazolin 330 Mg/Ml 1 Gm Vial) Confirm Administered Dose 990 mg .ROUTE .STK-MED ONE Stop: 03/26/24 06:57 Last Admin: 03/26/24 08:25 Dose: 990 mg Documented By: MARTIN Celecoxib (Celebrex 200 Mg Cap) 200 mg PO PREOP JANICE Stop: 03/26/24 18:00 Last Admin: 03/26/24 06:17 Dose: 200 mg Documented By: DSW Gabapentin (Gabapentin 300 Mg Cap) 300 mg PO PREOP JANICE Stop: 03/26/24 18:00 Last Admin: 03/26/24 06:17 Dose: 300 mg Documented By: DSW Lactated Ringer's (Lr) 1,000 mls @ 15 mls/hr IV .Q24H JANICE Stop: 03/27/24 05:59 Last Infusion: 03/26/24 07:46 Dose: Infused Documented By: Admin: 03/26/24 06:17 Dose: 15 mls/hr Documented By: DSW Lactated Ringer's (Lr) 1,000 mls @ 60 mls/hr IV .[id number] JANICE Stop: 03/26/24 22:39 Last Admin: 03/26/24 06:17 Dose: Not Given Documented By: SHARONW Cefazolin Sodium (Ancef 2000mg) 2,000 mg in 15 mls @ 3.75 mls/min IV PREOP JANICE; Protocol Stop: 03/26/24 18:00 Last Admin: 03/26/24 07:47 Dose: 3.75 mls/min Documented By: [id number] Dexamethasone 6 mg/ Syringe 1.5 mls @ 1 mls/min IV Q8H JANICE Stop: 03/27/24 06:02 Last Admin: 03/27/24 05:41 Dose: 1 mls/min Documented By: Admin: 03/26/24 21:51 Dose: 1 mls/min Documented By: Admin: 03/26/24 15:06 Dose: 1 mls/min Documented By: RRD Sodium Chloride (Nss) 1,000 mls @ 100 mls/hr IV .Q10H JANICE Stop: 04/25/24 11:32 Last Infusion: 03/27/24 04:41 Dose: Infused Documented By: Admin: 03/26/24 21:46 Dose: 100 mls/hr Documented By: Infusion: 03/26/24 21:46 Dose: Infused Documented By: HFPrashant Admin: 03/26/24 11:46 Dose: 100 mls/hr Documented By: KETTY Cefazolin Sodium (Ancef 2000mg) 2,000 mg in 15 mls @ 3.75 mls/min IV Q8H JANICE; Protocol Stop: 03/27/24 00:03 Last Admin: 03/27/24 00:39 Dose: 3.75 mls/min Documented By: Admin: 03/26/24 16:01 Dose: 3.75 mls/min Documented By: KETTY Miscellaneous ( Floseal Hemostatic Matrix 10ml) 10 ml TOP ONCE ONE Stop: 03/26/24 09:28 Last Admin: 03/26/24 12:27 Dose: Not Given Documented By: KETTY (2) Hypertension Hypertension type: unspecified Qualified Code(s): I10 - Essential (primary) hypertension (3) CKD (chronic kidney disease) stage 3, GFR 30-59 ml/min Chronic kidney disease stage 3 subtype: unspecified whether 3a or 3b Qualified Code(s): N18.30 - Chronic kidney disease, stage 3 unspecified
[2024-03-27 08:49] LABS: Hematocrit (blood only) 41.2 % (42.0-52.0); Hemoglobin 14.4 g/dl (14.0-18.0); Mean Corpuscular Hemoglobin 30.1 pg (25.0-34.0); Mean Corpuscular Volume 86.2 fL (80.0-100.0); Mean Platelet Volume 10.9 fL (9.4-12.4); Platelet Count 209 K/uL (130-400); RDW Coefficient of Variation 12.9 % (11.5-14.5); RDW Standard Deviation 40.6 fL (36.4-46.3); Red Blood Count 4.78 M/uL (4.70-6.10); White Blood Count 14.81 K/ul (4.8-10.8)
[2024-03-27 09:44] LABS: BUN Creatinine Ratio 14.4 (10-20); Calcium 9.5 mg/dl (8.6-10.3); Creatinine Clr Calc Pharmacy 49.2 ml/min; Est GFR (African American) 80.5 ml/min; Est GFR (Non-African American) 69.4 ml/min; Potassium 3.9 mmol/L (3.5-5.1)
--- NOTE | 2024-03-27 09:56 | Discharge Summary ---
Date of Service March 27, 2024 Admission HPI Per Admitting Provider This is an 88-year-old male with chronic persistent neck and arm pain a failed course of nonoperative care is here for surgical intervention. Principal Diagnosis Cervical spinal stenosis with myeloradiculopathy Discharge Data Allergies Allergy/AdvReac Type Severity Reaction Status Date / Time No Known Allergies Allergy Verified 03/26/24 06:07 Consultations 03/26/24 11:33 Consult Hospitalist Routine Procedures Performed Operation Date: 03/26/24 07:45 Actual Procedures p C3-C6 Anterior Cervical Discectomy and Fusion, C4 Corpectomy - Og Lane DO Ordered Studies 03/26/24 07:45 [place] cervical 2-3V Routine Hospital Course (1) Myelopathy concurrent with and due to spinal stenosis of cervical region: Total Time Total Time Spent Total Time Spent (In Minutes): 20 minutes Discharge Plan Discharge Items Patient Disposition: Home - Self-Care Reason For Visit: Cervical Spondylosis, Cervical Disc Disease, Cervi Discharge Diagnosis: Cervical myelopathy Activity: As commented below Non-emergency contact: Primary Care Provider Call non-emergency contact if: you have any medication questions Follow-up/Referrals: Leandro Aldridge MD [Primary Care Provider] - Diet: Regular Addtl Attending Provider Instructions: ACTIVITY RECOMMENDATIONS: SELF CARE INSTRUCTIONS AFTER THORACIC/LUMBAR FUSIONS 1. You may walk to your tolerance. It is good exercise for your legs and back. Expect some back and intermittent leg aches and pains. 2. You may perform "counter-top" level activities (make a sandwich, mita with a project, etc.). 3. No bending or lifting of more than 10 pounds or back twisting of any nature (roll like a log when turning in bed). 4. You may ride in a car for 20-30 minutes at a time. No driving until after your first visit with your doctor. 5. Frequent changes of position and restricting sitting to 30 minutes at a time will help limit the amount of back spasms and stiffness you may experience. 6. You may discontinue the use of ambulatory aids (cane, crutches, etc.) once your strength and confidence allow. 7. 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 Do not take a tub bath, sit in a hot tub or go into a swimming pool until after your first recheck in the office. SPECIAL CARE INSTRUCTIONS: VERY IMPORTANT TO READ AND REVIEW A. Your surgical incision has been closed with a cosmetic suture under the skin that will dissolve in about 6 weeks. In 14 days, you can use a pair of clean scissors and cut the suture that is left outside of the skin at the ends of your incision. 1. The small skin tapes can be removed 7 days after surgery if they have not fallen off by that point. 2. You may keep the wound open to air as much as possible to promote healing after post-op day number 5 unless told otherwise by your doctor. 3. If you think the wound looks like it is becoming infected (redness or worsening drainage) and/or you are experiencing fever, chill or worsening back pain and muscle spasms, contact the office so that we may evaluate you as soon as possible. B. Complications are uncommon, but please contact us if you have any signs or symptoms of: 1. wound infection (fever higher than 102.5 degrees F, redness, separation of wound, drainage, or increasing pain from the incision) 2. blood clots in legs (pain, swelling, redness and warmth in legs) 3. urinary tract infection (fever higher than 102.5 degrees F, burning upon urination or increased frequency of urination) 4. nerve problems (inability to walk on your toes or heels, numbness, loss of bowel or bladder control) 5. any other symptoms that concern you C. Please call the office at if you have any concerns or questions about your operation or recovery. D. No smoking! Smoking drastically decreases the chance of a solid fusion. E. Do not take any anti-inflammatory medications (Indocin, Advil, Motrin, Aspirin, Naprosyn, etc.) as these may inhibit the chance of a solid fusion. Tylenol is okay to take for pain. MANAGING PAIN AFTER SPINAL SURGERY 1. Narcotic medication is intended for short-term use and will be provided for surgical pain. Surgical pain usually lasts for a period of 4-6 weeks. Narcotic medication includes Percocet, Vicodin, Darvocet, Tylenol #3 or Lortab. 2. Longer-term pain is more appropriately treated with non-narcotic medication such as Tylenol ES. 3. Muscle spasm is not appropriately treated with narcotics. Muscle relaxers such as Soma, Flexeril or Skelaxin can be used along with Tylenol ES. 4. Remember that we all live with some "aches and pains". This is not unusual or uncommon after an injury or as we get older. a. Back pain is expected and may include muscle spasms for 4 to 6 weeks after surgery. The pain should gradually improve. If the pain worsens for no apparent reason, please contact the office. b. Intermittent leg pain may also be experienced and should not be concerned about unless it worsens for no apparent reason. If so, please contact the office. 5. We will provide appropriate medication within the normal guidelines of their prescribed use. We will also be very cautious and aware of potential abuse and extended duration of patients' medication needs. a. Pain medications are for your comfort and to assist with sleep and rest so that the tissue can heal. They are not provided in order to return to normal activity and should not be used through the day. To do so or worsening pain at night can result from ongoing tissue damage and development of tolerance to the prescribed medicine. 6. Please allow 2-3 days to process refills. Prescriptions will not be mailed but must be picked up at the office. FOLLOW UP VISIT: Keep your scheduled follow-up appointment. Any questions, please call the office at . Pending Studies at Discharge: No Stand-Alone Forms: My [facility] Medications and DC Order Prescriptions: New tramadol 50 mg tablet 50 mg PO Q6H PRN (Reason: pain, moderate) Qty: 30 0RF oxycodone 5 mg tablet 5 mg PO Q6H PRN (Reason: pain) Qty: 20 0RF Continued aspirin [Adult Aspirin Regimen] 81 mg tablet,delayed release (DR/EC) 81 mg PO QAM omeprazole 20 mg tablet,delayed release (DR/EC) 20 mg PO QAM Patient Comments: PO As directed PRN; Rx Instructions: PO As directed PRN; lisinopril 20 mg Tablet 20 mg PO QAM amlodipine 5 mg Tablet 5 mg PO QAM simvastatin 20 mg Tablet 20 mg PO QPM cholecalciferol (vitamin D3) [Vitamin D3] 25 mcg (1,000 unit) Tablet 25 mcg PO QAM doxycycline hyclate 100 mg capsule 100 mg PO .COMPLEX Rx Instructions: 100 mg PO Take one pill by mouth every other day 2 hours after breakfast with full glass of water as directed ; diphenhydramine-acetaminophen [Tylenol PM Extra Strength] 25-500 mg Tablet 1 tab PO HS PRN (Reason: pain/sleep) Discharge Orders: Discharge Order (Routine); Ordered 03/27/24 Ordered By: Og Lane Admission Data Admit Date/Time: 03/26/24 09:42 Attending Provider: Og Lane Admit Provider: Og Lane Primary Care Provider: Leandro Aldridge Other Providers: Alejandrina Bowling Other Interventions: Discharge Summary Assessment (RN) Last Done: 03/27/24 10:06
[2024-03-28] MEDS ORDERED: DOXYCYCLINE HYCLATE 100 MG CAP PO SCH (11:00)
== END 2024-03-27 13:04 | disposition home or self-care (01) | DRG 473 ==
LOC: ASU 05:45 → 3E 09:42

== ENCOUNTER 2025-07-01 08:53 | Inpatient (IN) ==
[2025-07-01 09:55] LABS: Appearance Urine Clear (Clear); Glucose Urine UA Negative (Negative)
[2025-07-01 10:04] LABS: Hematocrit (blood only) 44.3 % (42.0-52.0); Hemoglobin 15.7 g/dl (14.0-18.0); Immature Granulocytes # (auto) 0.16 K/uL (0.01-0.20); Immature Granulocytes % (auto) 1.1 %; Mean Corpuscular Hemoglobin 30.7 pg (25.0-34.0); Mean Corpuscular Volume 86.5 fL (80.0-100.0); Platelet Count 316 K/uL (130-400); RDW Standard Deviation 40.0 fL (36.4-46.3); Red Blood Count 5.12 M/uL (4.70-6.10); White Blood Count 14.86 K/ul (4.8-10.8)
--- NOTE | 2025-07-01 10:05 | Emergency Department Note ---
Impression & Plan Abdominal pain, epigastric, Elevated troponin I level, Gastric wall thickening ED Provider Note HISTORY OF PRESENT ILLNESS: Patient is an 89-year-old male presenting with epigastric pain. Patient reports that he has had pain in his epigastric region for the last 4 weeks that has been progressively worse. His primary doctor had started him on omeprazole 20 mg twice daily which she has been taking. He reports he is also been taking Tylenol and oxycodone with little relief in his symptoms. He states that anytime he takes anything by mouth he has "the most intense burning fire sensation" in his epigastric region. He denies any gross blood in his stool or any obvious melena. He is not on any anticoagulation. He reports he was previously on 81 mg of aspirin, but his primary doctor recommended he stop that a week ago. He has lost 20 pounds in the last week secondary to not eating because eating or drinking anything causes the pain. He denies any history of abdominal surgeries. Denies any fevers or chills. He denies any chest pain or shortness of breath. He reports that he has been progressively weaker over the last month secondary to not eating. Daughter at bedside reports that the patient is significantly weaker and "just does not do anything anymore because he is too weak." ROS: as above PHYSICAL EXAM: Constitutional: Patient appears in no acute distress. HENT: Head: Normocephalic and atraumatic. Eyes: EOMI, PERRL Mouth/Throat: Mucous membranes moist. Neck: Trachea midline. Neck supple. Cardiovascular: RRR, No murmurs, rubs or gallops. Intact distal pulses. Pulmonary/Chest: No respiratory distress. Breath sounds clear and equal bilaterally. No wheezes or rales. Abdominal: Abdomen soft, no tenderness, rebound or guarding. Musculoskeletal: No edema, tenderness or deformity noted. Skin: Warm and dry. No rash, erythema, pallor or cyanosis Psychiatric: Appropriate mood and affect for situation. Neurological: Alert and keenly responsive. CN II-XII grossly intact, moving all extremities equally and fully. MDM: - Vitals signs showed hypertension. - History obtained via patient. History as above. - Chronic conditions affecting care: CKD; HTN; GERD; HLD - Differential diagnoses include, but are not limited to: Peptic ulcer disease; gastritis; esophagitis; ACS; dysrhythmia; GI bleed - Order placed for continuous cardiac monitoring. At this time, monitor showed rate of 76 bpm with normal sinus rhythm, per my interpretation. - External medical records reviewed. Discharge summary dated 04/03/2024 was reviewed. Patient was admitted that time secondary to chronic persistent neck and arm pain and had cervical spinal stenosis with myeloradiculopathy. He underwent a C3-C6 anterior cervical discectomy and fusion. - EKG image interpreted by myself showed normal sinus rhythm. Rate 73 bpm. QT 380. No acute ischemic changes. - Laboratory workup interpreted by myself showed leukocytosis (WBC 14.86) with neutrophil predominance; normal PT/INR; stable electrolytes; elevated troponin (127.8); normal AST/ALT; normal lipase; elevated BUN (28) - CT abdomen/pelvis with IV contrast showed small right basilar pneumothorax without any right sided rib fractures. Noted to have subacute left rib fractures that are healing. No bowel obstruction. Nonspecific centrally necrotic gastrohepatic lymph nodes are noted. Also noted to have nonspecific proximal to mid gastric wall thickening with partial distention. - Patient's small pneumothorax is likely secondary to his fall he had in May 2025. He denies any shortness of breath and is currently saturating 96% on room air. - Repeat troponin elevated but downtrending to 105.4 - Patient given 4 mg IV morphine and 4 mg IV zofran for symptomatic management on arrival. Given 80 mg IV protonix on arrival. - Discussed case with GI director of application development, Dr. Padilla, at 13:00. I reported that patient would be admitted to the hospitalist service given his multiple medical abnormalities on arrival. Dr. Padilla reports concern patient has high suspicion for cancer. He is in agreement with admission to hospital service. I discussed that patient was given 80 mg of IV Protonix. Inquired on whether he would want a drip started, but he stated that Protonix IV twice daily would be sufficient at this time. GI will follow as consult. - Discussion was had with employment case manager about patient's case and need for admission - Hospitalist consulted for admission - Patient admitted to [facility] hospitalist service for further evaluation and management. ASSESSMENT AND PLAN: Diagnosis: epigastric abdominal pain; elevated troponin level; gastric wall thickening Plan: Admit Past Med/Surg History Problem List (Updated 07/01/25 @ 15:14 by Tawana Jurado MD) Gastric wall thickening (Acute) Elevated troponin I level (Acute) Abdominal pain, epigastric (Acute) Abnormal CT scan, stomach Chronic back pain Elevated troponin Pneumothorax Epigastric pain CKD (chronic kidney disease) stage 3, GFR 30-59 ml/min Hypertension Myelopathy concurrent with and due to spinal stenosis of cervical region Carpal tunnel syndrome, left Hyperlipidemia GERD (gastroesophageal reflux disease) History of SCC (squamous cell carcinoma) of skin (Acute) History of basal cell carcinoma (Acute) Hypertension (Chronic) Medical History Prediabetes History of Mohs micrographic surgery for skin cancer Hx of colonic polyps Rosacea Hx of squamous cell carcinoma Hx of basal cell carcinoma GERD (gastroesophageal reflux disease) Hyperlipidemia Surgical History S/P epidural steroid injection lumbar History of colonoscopy S/P inguinal hernia repair right S/P carpal tunnel release left History of repair of rotator cuff (~2017) right Family History Other No pertinent family history Social History Smoking Status: Former smoker Tobacco Type: Cigarettes Second Hand Exposure: No; Do You Dip or Chew Tobacco: Yes (occasionally (advised on policy)); Hx Alcohol Use: No Hx Substance Use: No Preferred Language: Macedonian Communication Ability: Effective Schedule Manager Required: No Beliefs That Will Affect Care: Bahai Bahai Beliefs: Hinduism Current Living Situation: Family Current Living Situation Comment: lives with Daughter in law Feels Safe at Home: Yes Assistive Devices: None Allergies Allergies Allergy/AdvReac Type Severity Reaction Status Date / Time No Known Allergies Allergy Verified 07/18/24 08:50 Home Meds Home Medications Medication Instructions Recorded Confirmed omeprazole 20 mg tablet,delayed 20 mg PO BID Heartburn 05/02/19 07/01/25 release amlodipine 5 mg tablet 10 mg PO QAM 03/13/24 07/01/25 cholecalciferol (vitamin D3) 25 25 mcg PO QAM 03/13/24 07/01/25 mcg (1,000 unit) tablet (Vitamin D3) diphenhydramine 25 1 tab PO HS PRN pain/sleep 03/13/24 07/01/25 mg-acetaminophen 500 mg tablet (Tylenol PM Extra Strength) simvastatin 20 mg tablet 20 mg PO QPM 03/13/24 07/01/25 cyanocobalamin (vitamin B-12) 0 mg PO DAILY 07/01/25 07/01/25 lisinopril 20 1 tab PO DAILY 07/01/25 07/01/25 mg-hydrochlorothiazide 12.5 mg tablet Previous Rx's Medication Instructions Recorded oxycodone 5 mg tablet 5 mg PO Q6H PRN pain #20 tabs 03/26/24 Results & Data (ED) Vital Signs Vital Signs - 24 hr 07/01/25 09:03 07/01/25 09:21 07/01/25 09:27 Temperature 36 C L Temperature Source Temporal Artery Scan Pulse Rate 80 98 H 72 Pulse Rate [Right Finger] Pulse Rate from SpO2 Sensor Respiratory Rate 22 18 Respiratory Effort / Characteristics Non-Labored Spontaneous Respiratory Depth Normal Respiratory Pattern Regular Blood Pressure 105/65 Blood Pressure [Right Arm] Blood Pressure Mean 78 Blood Pressure Mean [Right Arm] Pulse Oximetry 100 98 Oxygen Delivery Method Room Air Room Air Sepsis Recent Fever Within 48 Hours No Sepsis New/Unexplained Change in Mental Status No Sepsis Action Taken by Nursing No Action Required 07/01/25 09:28 07/01/25 10:18 07/01/25 10:29 Temperature Temperature Source Pulse Rate Pulse Rate [Right Finger] 76 66 72 Pulse Rate from SpO2 Sensor Respiratory Rate 18 24 24 Respiratory Effort / Characteristics Non-Labored Spontaneous Non-Labored Spontaneous Non-Labored Spontaneous Respiratory Depth Normal Normal Normal Respiratory Pattern Blood Pressure Blood Pressure [Right Arm] 160/81 H 118/72 110/62 Blood Pressure Mean Blood Pressure Mean [Right Arm] 107 87 78 Pulse Oximetry 98 98 96 Oxygen Delivery Method Room Air Room Air Room Air Sepsis Recent Fever Within 48 Hours Sepsis New/Unexplained Change in Mental Status Sepsis Action Taken by Nursing 07/01/25 11:00 07/01/25 12:03 07/01/25 12:30 Temperature Temperature Source Pulse Rate 63 63 63 Pulse Rate [Right Finger] Pulse Rate from SpO2 Sensor 64 63 Respiratory Rate 19 15 18 Respiratory Effort / Characteristics Respiratory Depth Respiratory Pattern Blood Pressure 119/57 L Blood Pressure [Right Arm] Blood Pressure Mean 71 Blood Pressure Mean [Right Arm] Pulse Oximetry 97 97 96 Oxygen Delivery Method Sepsis Recent Fever Within 48 Hours Sepsis New/Unexplained Change in Mental Status Sepsis Action Taken by Nursing 07/01/25 13:03 07/01/25 13:30 Temperature Temperature Source Pulse Rate 66 71 Pulse Rate [Right Finger] Pulse Rate from SpO2 Sensor 64 70 Respiratory Rate 13 14 Respiratory Effort / Characteristics Respiratory Depth Respiratory Pattern Blood Pressure 125/48 L Blood Pressure [Right Arm] Blood Pressure Mean 73 Blood Pressure Mean [Right Arm] Pulse Oximetry 96 96 Oxygen Delivery Method Sepsis Recent Fever Within 48 Hours Sepsis New/Unexplained Change in Mental Status Sepsis Action Taken by Nursing Laboratory Data 07/01/25 09:24 07/01/25 09:24 Lab Results 07/01/25 07/01/25 07/01/25 Range/Units 09:15 09:24 11:43 WBC 14.86 H (4.8-10.8) K/ul RBC 5.12 (4.70-6.10) M/uL Hgb 15.7 (14.0-18.0) g/dl Hct 44.3 (42.0-52.0) % MCV 86.5 (80.0-100.0) fL MCH 30.7 (25.0-34.0) pg MCHC 35.4 (32.0-36.0) g/dL RDW Std Deviation 40.0 (36.4-46.3) fL RDW Coeff of [place] 12.6 (11.5-14.5) % Plt Count 316 (130-400) K/uL MPV 10.3 (9.4-12.4) fL Immature Gran % (Auto) 1.1 % Neut % (Auto) 57.2 % Lymph % (Auto) 31.7 % Carbon % (Auto) 9.7 % Eos % (Auto) 0.1 % Baso % (Auto) 0.2 % Neut # (Auto) 8.51 H (1.40-6.50) K/uL Lymph # (Auto) 4.71 H (1.20-3.40) K/uL Carbon # (Auto) 1.44 H (0.11-0.59) K/uL Eos # (Auto) 0.01 (0.00-0.50) K/uL Baso # (Auto) 0.03 (0.00-0.20) K/uL Immature Gran # (Auto) 0.16 (0.01-0.20) K/uL PT 10.9 (9.0-12.0) Seconds INR 1.0 (0.9-1.1) Sodium 137 (136-145) mmol/L Potassium 3.9 (3.5-5.1) mmol/L Chloride 99 (98-107) mmol/L Carbon Dioxide 27 (21-32) mmol/L Anion Gap 11 (3-11) BUN 28 H (6-23) mg/dl Creatinine 1.32 (0.6-1.4) mg/dl Est Cr Clr Drug Dosing 33.3 ml/min eGFR 51.56 BUN/Creatinine Ratio 21.2 H (10-20) Glucose 104 H (70-99(Fasting)) mg/dl Calcium 10.1 (8.6-10.3) mg/dl Total Bilirubin 0.8 (0.2-1.0) mg/dl AST 12 L (13-39) U/L ALT 9 (7-52) U/L Alkaline Phosphatase 125 H (34-104) U/L Troponin I High Sens 127.8 H* 105.4 H* (0-20) pg/ml Total Protein 8.0 (6.0-8.3) gm/dl Albumin 4.3 (3.4-5.0) gm/dl Globulin 3.7 (2.5-4.0) gm/dl Albumin/Globulin Ratio 1.2 (0.9-2) Lipase 16 (11-82) U/L Urine Color Yellow Urine Appearance Clear (Clear) Urine pH 6.5 (4.5-7.5) Ur Specific [place] 1.019 (1.000-1.030) Urine Protein Negative (Negative) Urine Glucose (UA) Negative (Negative) Urine Ketones Negative (Negative) Urine Blood Negative (Negative) Urine Nitrite Negative (Negative) Urine Bilirubin Negative (Negative) Urine Urobilinogen Negative (Negative) Ur Leukocyte Esterase Negative (Negative) Urine Comment Administered Medications Famotidine (Pepcid 20mg Iv Push) 20 mg in 5 mls @ 2.5 mls/min IV Q12H JANICE Stop: 07/31/25 13:29 Last Admin: 07/01/25 13:55 Dose: 2.5 mls/min Documented By: NRB Discontinued Medications Pantoprazole Sodium 80 mg/ (Dextrose) 120 mls @ 480 mls/hr IV ONE STA Stop: 07/01/25 09:56 Last Infusion: 07/01/25 12:56 Dose: Infused Documented By: Admin: 07/01/25 12:29 Dose: 480 mls/hr Documented By: KYLIE Acetaminophen (Ofirmev) 1,000 mg in 100 mls @ 400 mls/hr IV NOW STA Stop: 07/01/25 14:07 Last Infusion: 07/01/25 14:16 Dose: Infused Documented By: NROfelia Admin: 07/01/25 13:58 Dose: 400 mls/hr Documented By: KYLIE Ioversol (Optiray 320 100ml) 93 ml IV ONCE ONE Stop: 07/01/25 11:28 Last Admin: 07/01/25 11:28 Dose: 93 ml Documented By: AMISH Morphine Sulfate (Morphine Sulfate 4 Mg/Ml 1 Ml Carp\\Vial) 4 mg IV NOW STA Stop: 07/01/25 09:43 Last Admin: 07/01/25 10:21 Dose: 4 mg Documented By: KYLIE(2) Ondansetron HCl (Ondansetron Inj 2 Mg/Ml 2 Ml Vial) 4 mg IV NOW STA Stop: 07/01/25 09:43 Last Admin: 07/01/25 10:21 Dose: 4 mg Documented By: KYLIE(2) Imaging Data Radiologist's Impression: Abdomen/Pelvis CT 07/01/25 09:[address] WITH IV CONTRAST CT DOSE: 517.31 mGy.cm HISTORY: Acute epigastric abdominal pain epigastric pain TECHNIQUE: Multiaxial CT images of the abdomen and pelvis were performed following the IV administration of 93 cc of Optiray, A dose lowering technique was utilized adhering to the principles of ALARA. COMPARISON STUDY: None. FINDINGS: Extensive coronary artery calcifications. There is a small right basilar pneumothorax with pleural separation measuring up to approximately 1.2 cm anteriorly. There is mild subsegmental bibasilar atelectasis. No pneumatosis or pneumoperitoneum. Unremarkable spleen, pancreas, adrenal glands. Possible fundal adenomyomatosis of the gallbladder. Indeterminate hypodense 1.3 cm right hepatic lobe lesion on image 74 series 3 with possible peripheral enhancement. Patency of the hepatic and portal veins. Cysts of the kidneys measure up to approximately 3 cm on the right. Mildly enlarged prostate. Urinary bladder wall thickening with partial distention. Atherosclerosis of the aorta without aneurysm. Hypodense/necrotic lymph nodes then the gastrohepatic space include a 1.5 x 1.3 cm lymph node on image 84 series 3. An additional 1.3 x 1.0 cm lymph node is seen on image 79 series 3. Tiny hiatal hernia. There is mild wall thickening of the proximal stomach with partial distention. No additional lymphadenopathy. Colonic diverticulosis without acute diverticulitis. Mild to moderate colonic fecal retention. Normal appendix. Annular disc bulge/disc protrusion noted at L3-L4, eccentric to the right neural foramen and far right lateral at 141 series 3. This causes severe right neural foraminal stenosis. There are a few healing subacute nondisplaced lateral left-sided rib fractures noted. IMPRESSION: 1. Small right basilar pneumothorax. No right-sided rib fractures are identified. 2. Healing subacute left rib fractures. 3. No bowel obstruction or bowel wall thickening. 4. Nonspecific centrally necrotic gastrohepatic lymph nodes may be amendable to endoscopic biopsy. 5. Mild nonspecific proximal to mid gastric wall thickening with partial distention. 6. Additional findings as above. ACT 112: Positive. There are findings on this exam that require communication between the performing entity and the patient following Patient Test Result Information Act ([place] Act 112) guidelines. The above report was generated using voice recognition software. It may contain grammatical, syntax or spelling errors. Electronically signed by: Roosevelt Vázquez M.D. 07/01/2025 12:[address] 07/01/25 13:26 CT chest diagnostic wo con CT DOSE: 305.08 mGy.cm CLINICAL HISTORY: pneumothorax. TECHNIQUE: Multiaxial CT images of the chest were performed without contrast. A dose lowering technique was utilized adhering to the principles of ALARA. COMPARISON STUDY: Chest x-ray of 03/12/2024 FINDINGS: There is a small right pneumothorax with 1.3 cm pleural separation at the right apex. There is mild scarring in the lung apices and bases bilaterally. There is no pulmonary consolidation or pleural effusion. No significant bullous change seen. No enlarged adenopathy. There is thickening of the mid to distal esophagus. There are mild diffuse degenerative changes at the thoracic spine. There is osteopenia. There is mild chronic-appearing height loss at a few thoracic vertebral bodies. There are subacute fractures anteriorly and laterally at the left fourth through 10th ribs. IMPRESSION: 1. Small right pneumothorax. 2. Multiple subacute left-sided rib fractures. No pneumothorax seen on the left. 3. Thickening of the esophagus suspicious for esophageal cancer. There are a few mildly enlarged lymph nodes at the visualized upper abdomen suspicious for metastatic disease. ACT 112: Positive. There are findings on this exam that require communication between the performing entity and the patient following Patient Test Result Information Act ([place] Act 112) guidelines. Electronically signed by: Winston Calderon M.D. 07/01/2025 2:48 PM Discharge Plan Visit Data Chief Complaint: Abdominal Pain Stated Complaint: EXTREME STOMACH PAIN ED Provider: Tawana Jurado Discharge Problem: Abdominal pain, epigastric, Elevated troponin I level, Gastric wall thickening Patient Disposition: Admitted As Inpatient Condition: Fair Forms Stand Alone Forms: [facility] [place] eSNF Prescriptions Prescriptions: No Action omeprazole 20 mg tablet,delayed release (DR/EC) 20 mg PO BID Patient Comments: PO As directed PRN; Rx Instructions: PO As directed PRN; amlodipine 5 mg Tablet 10 mg PO QAM simvastatin 20 mg Tablet 20 mg PO QPM cholecalciferol (vitamin D3) [Vitamin D3] 25 mcg (1,000 unit) Tablet 25 mcg PO QAM diphenhydramine-acetaminophen [Tylenol PM Extra Strength] 25-500 mg Tablet 1 tab PO HS PRN (Reason: pain/sleep) oxycodone 5 mg tablet 5 mg PO Q6H PRN (Reason: pain) Qty: 20 0RF lisinopril-hydrochlorothiazide 20-12.5 mg tablet 1 tab PO DAILY cyanocobalamin (vitamin B-12) 0 mg PO DAILY Patient Comments: otc unknown dose Referrals Referrals: Leandro Aldridge MD [Primary Care Provider] -
[2025-07-01] MEDS: MoRPHine SULFATE 4 MG/ML 1 ML CARP\\VIAL IV STA (10:21)
[2025-07-01] MEDS: ONDANSETRON INJ 2 MG/ML 2 ML VIAL IV STA (10:21)
[2025-07-01 10:27] LABS: Alanine Aminotransferase 9.0 U/L (7-52); Albumin Globulin Ratio 1.2 (0.9-2); Albumin Level 4.3 gm/dl (3.4-5.0); Alkaline Phosphatase 125.0 U/L (34-104); Anion Gap 11.0 (3-11); Bilirubin,Total 0.8 mg/dl (0.2-1.0); Blood Urea Nitrogen 28.0 mg/dl (6-23); Calcium 10.1 mg/dl (8.6-10.3); Carbon Dioxide 27.0 mmol/L (21-32); Chloride 99.0 mmol/L (98-107); Creatinine Clr Calc Pharmacy 33.3 ml/min; Globulin 3.7 gm/dl (2.5-4.0); Glucose 104.0 mg/dl (70-99(Fasting)); Lipase 16.0 U/L (11-82); Potassium 3.9 mmol/L (3.5-5.1); Sodium 137.0 mmol/L (136-145); Total Protein 8.0 gm/dl (6.0-8.3)
[2025-07-01 10:40] LABS: INR 1.0 (0.9-1.1); Prothrombin Time 10.9 Seconds (9.0-12.0)
[2025-07-01] MEDS: OPTIRAY 320 100ml IV ONE (11:28)
--- NOTE | 2025-07-01 12:06 | CT Scan Report ---
ABDOMEN AND PELVIS CT WITH IV CONTRAST CT DOSE: 517.31 mGy.cm HISTORY: Acute epigastric abdominal pain epigastric pain TECHNIQUE: Multiaxial CT images of the abdomen and pelvis were performed following the IV administrat ion of 93 cc of Optiray, A dose lowering technique was utilized adhering to the principles of ALARA. COMPARISON STUDY: None. FINDINGS: Extensive coronary artery calcifications. There is a small right basilar pneumothorax with pleural separation measuring up to approximately 1.2 cm anteriorly. There is mild subsegmental bibasi lar atelectasis. No pneumatosis or pneumoperitoneum. Unremarkable spleen, pancreas, adrenal glands. P ossible fundal adenomyomatosis of the gallbladder. Indeterminate hypodense 1.3 cm right hepatic lobe lesion on image 74 series 3 with possible peripheral enhancement. Patency of the hepatic and portal v eins. Cysts of the kidneys measure up to approximately 3 cm on the right. Mildly enlarged prostate. Urinary bladder wall thickening with partial distention. Atherosclerosis of the aorta without aneurysm. Hypo dense/necrotic lymph nodes then the gastrohepatic space include a 1.5 x 1.3 cm lymph node on image 84 series 3. An additional 1.3 x 1.0 cm lymph node is seen on image 79 series 3. Tiny hiatal hernia. Th ere is mild wall thickening of the proximal stomach with partial distention. No additional lymphadeno dayna. Colonic diverticulosis without acute diverticulitis. Mild to moderate colonic fecal retention. Normal appendix. Annular disc bulge/disc protrusion noted at L3-L4, eccentric to the right neural fo ramen and far right lateral at 141 series 3. This causes severe right neural foraminal stenosis. Ther e are a few healing subacute nondisplaced lateral left-sided rib fractures noted. IMPRESSION: 1. Small right basilar pneumothorax. No right-sided rib fractures are identified. 2. Healing subacute left rib fractures. 3. No bowel obstruction or bowel wall thickening. 4. Nonspecific centrally necrotic gastrohepatic lymph nodes may be amendable to endoscopic biopsy. 5. Mild nonspecific proximal to mid gastric wall thickening with partial distention. 6. Additional findings as above. ACT 112: Positive. There are findings on this exam that require communication between the performing entity and the patient following Patient Test Result Information Act [place] Act 112) guidelines. The above report was generated using voice recognition software. It may contain grammatical, syntax o r spelling errors. Electronically signed by: Roosevelt Vázquez M.D. 07/01/2025 12:04 PM
--- NOTE | 2025-07-01 13:25 | History & Physical Report ---
Date of Service July 01, 2025 Assessment & Plan (1) Epigastric pain: Plan: #Abnormal CT abdomen Patient is 89 year old male with PMH HTN, dyslipidemia, CKD III, chronic back pain, GERD, rosacea on presented to ER with c/o burning sensation to epigastric x [address] abd/pelvis: 1. Small right basilar pneumothorax. No right-sided rib fractures are identified. 2. Healing subacute left rib fractures. 3. No bowel obstruction or bowel wall thickening. 4. Nonspecific centrally necrotic gastrohepatic lymph nodes may be amendable to endoscopic biopsy. 5. Mild nonspecific proximal to mid gastric wall thickening with partial distention. DDx: gastritis, esophagitis, ulcer, malignancy In ER started on IV Protonix Protonix IV BID Clear liquids for now NPO Midnight for possible EGD tomorrow, however would appreciate pulmonology input on recs with incidentally noted pneumothorax prior to procedure GI consult CBC, BMP in am (2) Pneumothorax: Plan: CT abd/pelvis: had noted small right pneumothorax CT Chest: 1. Small right pneumothorax. 2. Multiple subacute left-sided rib fractures. No pneumothorax seen on the left. 3. Thickening of the esophagus suspicious for esophageal cancer. There are a few mildly enlarged lymph nodes at the visualized upper abdomen suspicious for metastatic disease. Reported fall 2 months ago resulting in left sided rib fractures. At that time reports left sided rib pain which has since resolved. Per outpatient chart review on 04/29/2025: CT chest: No pulmonary contusion or pneumothorax, multiple acute left-sided rib fractures, acute fracture. Denies right sided chest pain. Denies SOB. Denies SOB. Is not hypoxic Pulmonology consult. Discussed consult with counter control operator who will evaluate with further recommendations (3) Elevated troponin: Plan: Denies CP, SOB Troponin: 127-->[address] elevation per my interpretation Repeat EKG in am Will trend troponin Echo Consider cardiology consult if troponins uptrending or abnormal EKG #Leukocytosis WBC: 14.8. UA unremarkable. CT chest without noted infiltrate Did receive FLORENTINO on 06/26 Monitor (4) CKD (chronic kidney disease) stage 3, GFR 30-59 ml/min: Plan: Cr: 1.3 (baseline ~1.4) Monitor renal functions avoid nephrotoxic agents when possible (5) Chronic back pain: Plan: chronic low back pain with radiculopathy On 06/26/25 interventional pain management and s/p L4/L5 interlaminar FLORENTINO. He feels after the spinal injection his pain is much improved He is using oxycodone 1-2 times a day. (6) Hypertension: Plan: Continue amlodipine Will hold lisinopril and HCTZ as possible procedure tomorrow (7) Hyperlipidemia: Plan: Continue statin (8) GERD (gastroesophageal reflux disease): Plan: Holding home oral PPI and converting to IV PPI for now (9) Rosacea: Plan: Previously on doxycycline, however reports hasn't been using DVT Prophylaxis SCDs for now Admit telemetry Full Code as per discussion with pt Follows with Dr Aldridge for routine care Pt was seen and care coordinated with Dr Garcia. See addendum I spent a total of 75 minutes reviewing notes, outpatient records, labs, medication, coordinating, documenting and providing care for this patient excluding time spent in the performance of separately billed services and excluding time spent by another provider/QHP. History of Present Illness Chief Complaint: stomach burning Primary Care Provider: Leandro Aldridge MD Patient is 89 year old male with PMH HTN, dyslipidemia, CKD III, chronic back pain, GERD, rosacea on presented to ER with c/o burning sensation to epigastric x 4 weeks. Patient states for past 4 weeks having burning sensation to epigastric region with radiation up chest with eating and drinking. He reports poor oral intake secondary to discomfort. States for past year after cervical spine procedure has had some dysphagia with swallowing large pills. Reports weight loss of 20 pounds over past month. He states having generalized weakness since decreased oral intake. Per outpatient chart review seen by PCP on 06/12/25 and had reported stomach burning and PPI was increased from daily to BID, gabapentin was discontinued secondary to large pill size and his aspirin was also discontinued. He is scheduled for EGD in July. He has not been taking doxycycline. He has been having low back pain with radiculopathy and on 06/26/25 interventional pain management and had L4/L5 interlaminar FLORENTINO. He is using oxycodone 1-2 times a day. He feels after the spinal injection his pain is much improved. Having constipation since starting oxycodone. Last BM two days ago. Patient reports had fall 2 months ago resulting in left sided rib fractures. At that time reports left sided rib pain which has since resolved. Per outpatient chart review on 04/29/2025: CT chest: No pulmonary contusion or pneumothorax, multiple acute left-sided rib fractures, acute fracture. Denies right sided chest pain. Denies SOB. Denies fever/chills, diaphoresis, N/V/D, melena, hematochezia, DÍAZ, dizziness, syncope, vision changes, neck pain, orthopnea, palpitations, cough, sore throat, otalgia, rhinorrhea, other abdominal pain, paresthesias, extremity edema, rashes, urinary symptoms. Allergies Allergy/AdvReac Type Severity Reaction Status Date / Time No Known Allergies Allergy Verified 07/18/24 08:50 Home Medications Medication Instructions Recorded Confirmed Type omeprazole 20 mg tablet,delayed 20 mg PO BID Heartburn 05/02/19 07/01/25 History release cholecalciferol (vitamin D3) 25 25 mcg PO QAM 03/13/24 07/01/25 History mcg (1,000 unit) tablet (Vitamin D3) diphenhydramine 25 1 tab PO HS PRN pain/sleep 03/13/24 07/01/25 History mg-acetaminophen 500 mg tablet (Tylenol PM Extra Strength) simvastatin 20 mg tablet 20 mg PO QPM 03/13/24 07/01/25 History oxycodone 5 mg tablet 5 mg PO Q6H PRN pain #20 tabs 03/26/24 07/01/25 Rx amlodipine 10 mg tablet 10 mg PO DAILY 07/01/25 07/01/25 History cyanocobalamin (vitamin B-12) 0 mg PO DAILY 07/01/25 07/01/25 History lisinopril 20 1 tab PO DAILY 07/01/25 07/01/25 History mg-hydrochlorothiazide 12.5 mg tablet Past Med/Surg History Problem List Abnormal CT scan, esophagus Gastric wall thickening (Acute) Elevated troponin I level (Acute) Abdominal pain, epigastric (Acute) Abnormal CT scan, stomach Chronic back pain Elevated troponin Pneumothorax Epigastric pain CKD (chronic kidney disease) stage 3, GFR 30-59 ml/min Hypertension Myelopathy concurrent with and due to spinal stenosis of cervical region Carpal tunnel syndrome, left Hyperlipidemia GERD (gastroesophageal reflux disease) History of SCC (squamous cell carcinoma) of skin (Acute) History of basal cell carcinoma (Acute) Hypertension (Chronic) Medical History Prediabetes History of Mohs micrographic surgery for skin cancer Hx of colonic polyps Rosacea Hx of squamous cell carcinoma Hx of basal cell carcinoma GERD (gastroesophageal reflux disease) Hyperlipidemia Surgical History S/P epidural steroid injection lumbar History of colonoscopy S/P inguinal hernia repair right S/P carpal tunnel release left History of repair of rotator cuff (~2018) right Family History Other No pertinent family history Social History Smoking Status: Never smoker Tobacco Type: Smokeless Tobacco (Dip or Chew) Smoking End Date: quit 70 yrs ago; Second Hand Exposure: No; Do You Dip or Chew Tobacco: Yes; Tobacco Cessation Education Requested by Patient: No Hx Alcohol Use: No Hx Substance Use: No Preferred Language: Georgian Communication Ability: Effective 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 Beliefs That Will Affect Care: None Current Living Situation: Family Current Living Situation Comment: lives with Daughter in law Other Information That Helps Us Care for You: No Feels Safe at Home: Yes Safety Concerns: Feels Safe At This Time Assistive Devices: Denture - Upper, Glasses and Hearing Aid - Bilateral Review of Systems Review of Systems: All systems reviewed & are unremarkable except as noted in HPI & below Physical Exam Physical Exam: General: no acute distress, WDWN eldelry male Head: normocephalic, atraumatic Eyes: conjunctiva non-injected, anicteric ENT: normal inspection external ears, nose, mucous membranes moist Neck: supple, trachea midline, non-tender Lungs: clear, no respiratory distress, no wheezing/rhonchi/rales CV: distant heart sounds, RRR, no murmur appreciated but difficult auscultation, no pretibial edema Abd: normal BS, soft,+tenderness to palpation epigastric region only Ext: no cyanosis, no calf tenderness Neuro: A&O x 3, no focal deficits noted, normal affect Skin: warm, dry Results & Data Results & Data Vital Signs (Past 12 Hours) Vital Signs Temp Pulse Pulse Resp BP BP Pulse Ox 07/01/25 10:29 72 24 110/62 96 07/01/25 10:18 66 24 118/72 98 07/01/25 09:28 76 18 160/81 H 98 07/01/25 09:27 72 18 98 07/01/25 09:21 98 H 07/01/25 09:03 36 C L 80 22 105/65 100 O2 Del Method 07/01/25 10:29 Room Air 07/01/25 10:18 Room Air 07/01/25 09:28 Room Air 07/01/25 09:27 Room Air 07/01/25 09:21 07/01/25 09:03 Room Air Laboratory Results Short CBC 07/01/25 Range/Units 09:24 WBC 14.86 H (4.8-10.8) K/ul Hgb 15.7 (14.0-18.0) g/dl Hct 44.3 (42.0-52.0) % Plt Count 316 (130-400) K/uL BMP 07/01/25 09:24 Sodium 137 Potassium 3.9 Chloride 99 Carbon Dioxide 27 BUN 28 H Creatinine 1.32 Glucose 104 H Calcium 10.1 Liver Function 07/01/25 Range/Units 09:24 Total Bilirubin 0.8 (0.2-1.0) mg/dl AST 12 L (13-39) U/L ALT 9 (7-52) U/L Alkaline Phosphatase 125 H (34-104) U/L Albumin 4.3 (3.4-5.0) gm/dl Urine 07/01/25 Range/Units 09:15 Urine Color Yellow Urine Appearance Clear (Clear) Urine pH 6.5 (4.5-7.5) Ur Specific Emerson 1.019 (1.000-1.030) Urine Protein Negative (Negative) Urine Glucose (UA) Negative (Negative) Diagnostic Findings Abdomen/Pelvis CT 07/01/25 09:[address] WITH IV CONTRAST CT DOSE: 517.31 mGy.cm HISTORY: Acute epigastric abdominal pain epigastric pain TECHNIQUE: Multiaxial CT images of the abdomen and pelvis were performed following the IV administration of 93 cc of Optiray, A dose lowering technique was utilized adhering to the principles of ALARA. COMPARISON STUDY: None. FINDINGS: Extensive coronary artery calcifications. There is a small right basilar pneumothorax with pleural separation measuring up to approximately 1.2 cm anteriorly. There is mild subsegmental bibasilar atelectasis. No pneumatosis or pneumoperitoneum. Unremarkable spleen, pancreas, adrenal glands. Possible fundal adenomyomatosis of the gallbladder. Indeterminate hypodense 1.3 cm right hepatic lobe lesion on image 74 series 3 with possible peripheral enhancement. Patency of the hepatic and portal veins. Cysts of the kidneys measure up to approximately 3 cm on the right. Mildly enlarged prostate. Urinary bladder wall thickening with partial distention. Atherosclerosis of the aorta without aneurysm. Hypodense/necrotic lymph nodes then the gastrohepatic space include a 1.5 x 1.3 cm lymph node on image 84 series 3. An additional 1.3 x 1.0 cm lymph node is seen on image 79 series 3. Tiny hiatal hernia. There is mild wall thickening of the proximal stomach with partial distention. No additional lymphadenopathy. Colonic diverticulosis without acute diverticulitis. Mild to moderate colonic fecal retention. Normal appendix. Annular disc bulge/disc protrusion noted at L3-L4, eccentric to the right neural foramen and far right lateral at 141 series 3. This causes severe right neural foraminal stenosis. There are a few healing subacute nondisplaced lateral left-sided rib fractures noted. IMPRESSION: 1. Small right basilar pneumothorax. No right-sided rib fractures are identified. 2. Healing subacute left rib fractures. 3. No bowel obstruction or bowel wall thickening. 4. Nonspecific centrally necrotic gastrohepatic lymph nodes may be amendable to endoscopic biopsy. 5. Mild nonspecific proximal to mid gastric wall thickening with partial distention. 6. Additional findings as above. ACT 112: Positive. There are findings on this exam that require communication between the performing entity and the patient following Patient Test Result Information Act ([place] Act 112) guidelines. The above report was generated using voice recognition software. It may contain grammatical, syntax or spelling errors. Electronically signed by: Roosevelt Vázquez M.D. 07/01/2025 12:[address] 07/01/25 13:26 CT chest diagnostic wo con CT DOSE: 305.08 mGy.cm CLINICAL HISTORY: pneumothorax. TECHNIQUE: Multiaxial CT images of the chest were performed without contrast. A dose lowering technique was utilized adhering to the principles of ALARA. COMPARISON STUDY: Chest x-ray of 03/12/2024 FINDINGS: There is a small right pneumothorax with 1.3 cm pleural separation at the right apex. There is mild scarring in the lung apices and bases bilaterally. There is no pulmonary consolidation or pleural effusion. No significant bullous change seen. No enlarged adenopathy. There is thickening of the mid to distal esophagus. There are mild diffuse degenerative changes at the thoracic spine. There is osteopenia. There is mild chronic-appearing height loss at a few thoracic vertebral bodies. There are subacute fractures anteriorly and laterally at the left fourth through 10th ribs. IMPRESSION: 1. Small right pneumothorax. 2. Multiple subacute left-sided rib fractures. No pneumothorax seen on the left. 3. Thickening of the esophagus suspicious for esophageal cancer. There are a few mildly enlarged lymph nodes at the visualized upper abdomen suspicious for metastatic disease. ACT 112: Positive. There are findings on this exam that require communication between the performing entity and the patient following Patient Test Result Information Act ([place] Act 112) guidelines. Electronically signed by: Winston Calderon M.D. 07/01/2025 2:48 PM ECG Additional Comments: sinus rhythm, rate 73, RBBB per my interpretation Supervising Physician Co-Signing Physician Notes Pt seen and examined by me, care coordinated w/ NAOMI Long, pls refer to her note above for further detail. Pt is 89 yo M w/HTN, dyslipidemia, CKD III, chronic back pain, GERD, rosacea who presents with c/o burning sensation to epigastrium x 4 weeks. He reports poor oral intake secondary to discomfort and weight loss 20 lbs. States for past year after cervical spine procedure has had some dysphagia with swallowing large pills. Pt also used to be on doxycycline for rosacea - not taking anymore (? pill esophagitis). He is scheduled for EGD in July. Pt reports had fall 2 months ago resulting in left sided rib fractures. At that time reports left sided rib pain which has since resolved. Per outpatient chart review on 04/06: CT chest: No pulmonary contusion or pneumothorax, multiple acute left- sided rib fractures, acute fracture. Denies right sided chest pain. Denies SOB. Denies fever/chills, diaphoresis, N/V/D, melena, hematochezia. In ED CXR concerning for small pneumothorax, also GI was contacted given pt's symptoms. Discussed w/ GI and plan for EGD, will start IV PPI, IV pepcid. Will further eval pneumothorax w/ chest CT and will discuss w/ pulm. MD Radha (4) CKD (chronic kidney disease) stage 3, GFR 30-59 ml/min Chronic kidney disease stage 3 subtype: unspecified whether 3a or 3b Qualified Code(s): N18.30 - Chronic kidney disease, stage 3 unspecified (6) Hypertension Hypertension type: unspecified Qualified Code(s): I10 - Essential (primary) hypertension
--- NOTE | 2025-07-01 13:41 | Gastrointestinal Consultation ---
Date of Consultation July 01, 2025 Assessment & Plan (1) Epigastric pain: (2) Abnormal CT scan, stomach: (3) Abnormal CT scan, esophagus: Plan Further CT imaging planned per hospitalist team to further evaluation the small pneumothorax found in ED. He continues to be NPO (Last intake was sips of water with pills around 7AM 07/01). Will make further recommendations regarding EGD timing pending pneumothorax work-up. In the interim, would give IV Protonix 40 mg BID be continued on admission. Supervising Physician Co-Signing Physician Notes Suspicious for gastric neoplasia. May be the cardia. EGD once cleared by pulmonology reviewed pneumothorax. History of Present Illness History of Present Illness Patient is an 89 yo male who presented to the ED due to poor oral intake, 20 lb weight loss in 1 month, and epigastric pain. His daughter notes he was being sent for an outpatient EGD, but they could no longer wait. He notes some dysphagia in addition to epigastric pain--he notes the dysphagia began after a neck surgery. He notes a history of tobacco use 60 years ago. He uses Omeprazole 20 mg BID at home. This was recently increased to the BID dosing with minimal improvement. No NSAID use. No blood thinners. No pertinent family history. Lipase wnl. H/H 15.7/44.3. In the ED, he had a CT scan of the abdomen/pelvis that indicated the following: IMPRESSION: 1. Small right basilar pneumothorax. No right-sided rib fractures are identified. 2. Healing subacute left rib fractures. 3. No bowel obstruction or bowel wall thickening. 4. Nonspecific centrally necrotic gastrohepatic lymph nodes may be amendable to endoscopic biopsy. 5. Mild nonspecific proximal to mid gastric wall thickening with partial distention. 6. Additional findings as above. CT Chest: Thickening of the esophagus suspicious for esophageal cancer. There are a few mildly enlarged lymph nodes at the visualized upper abdomen suspicious for metastatic disease. Allergies Allergy/AdvReac Type Severity Reaction Status Date / Time No Known Allergies Allergy Verified 07/18/24 08:50 Home Medications Medication Instructions Recorded Confirmed Type omeprazole 20 mg tablet,delayed 20 mg PO BID Heartburn 05/02/19 07/01/25 History release cholecalciferol (vitamin D3) 25 25 mcg PO QAM 03/13/24 07/01/25 History mcg (1,000 unit) tablet (Vitamin D3) diphenhydramine 25 1 tab PO HS PRN pain/sleep 03/13/24 07/01/25 History mg-acetaminophen 500 mg tablet (Tylenol PM Extra Strength) simvastatin 20 mg tablet 20 mg PO QPM 03/13/24 07/01/25 History oxycodone 5 mg tablet 5 mg PO Q6H PRN pain #20 tabs 03/26/24 07/01/25 Rx amlodipine 10 mg tablet 10 mg PO DAILY 07/01/25 07/01/25 History cyanocobalamin (vitamin B-12) 0 mg PO DAILY 07/01/25 07/01/25 History lisinopril 20 1 tab PO DAILY 07/01/25 07/01/25 History mg-hydrochlorothiazide 12.5 mg tablet Patient History Medical History Prediabetes History of Mohs micrographic surgery for skin cancer Hx of colonic polyps Rosacea Hx of squamous cell carcinoma Hx of basal cell carcinoma GERD (gastroesophageal reflux disease) Hyperlipidemia Surgical History S/P epidural steroid injection lumbar History of colonoscopy S/P inguinal hernia repair right S/P carpal tunnel release left History of repair of rotator cuff (~2017) right Family History Other No pertinent family history Social History Tobacco Type: Smokeless Tobacco (Dip or Chew) Second Hand Exposure: No; Do You Dip or Chew Tobacco: Yes (occasionally (advised on policy)); Hx Alcohol Use: No Hx Substance Use: No Preferred Language: Estonian Communication Ability: Effective 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 Beliefs That Will Affect Care: Sikhism Sikhism Beliefs: Sabianist Current Living Situation: Family Current Living Situation Comment: lives with Daughter in law Feels Safe at Home: Yes Assistive Devices: None Review of Systems Constitutional: no fever and no chills Respiratory: no cough and no dyspnea Cardiovascular: no chest pain Gastrointestinal: + abdominal pain and + heartburn; no nayana sea, no vomiting, no coffee ground emesis, no hematemesis, no blood in stools and no melena Physical Exam Constitutional: well developed Respiratory: normal respiratory effort Cardiovascular: Rate/Rhythm: regular rate Gastrointestinal (Abdomen): normal bowel sounds, soft, nontender, no hepatosplenomegaly Psychiatric: Orientation: alert and oriented x 3 Results & Data Vital Signs (Past 12 Hours) Vital Signs Temp Pulse Pulse Resp BP BP Pulse Ox 07/01/25 10:29 72 24 110/62 96 07/01/25 10:18 66 24 118/72 98 07/01/25 09:28 76 18 160/81 H 98 07/01/25 09:27 72 18 98 07/01/25 09:21 98 H 07/01/25 09:03 36 C L 80 22 105/65 100 O2 Del Method 07/01/25 10:29 Room Air 07/01/25 10:18 Room Air 07/01/25 09:28 Room Air 07/01/25 09:27 Room Air 07/01/25 09:21 07/01/25 09:03 Room Air PG Care Time/CCT Total # of Minutes Spent Total Time Spent with Patient: Total time spent is greater than 50% in coordination of care (as documented) at patient's floor/unit and/or counseling patient: Coding Level of Care Code 70893 INT INP/OBS CARE 3/75MIN Diagnoses Epigastric pain R10.[address] scan, stomach R93.[address] scan, esophagus R93.3
[2025-07-01] MEDS: FAMOTIDINE 20MG IV PUSH 20 MG/5 ML SYR IV SCH (13:55)
[2025-07-01] MEDS: ACETAMINOPHEN 1,000 MG/100 ML VIAL IV STA (13:58)
--- NOTE | 2025-07-01 14:11 | Electrocardiogram Report ---
Test Reason : Blood Pressure : */* mmHG Vent. Rate : 73 BPM Atrial Rate : 73 BPM P-R Int : 196 ms QRS Dur : 120 ms QT Int : 380 ms P-R-T Axes : 58 -22 26 degrees QTcB Int : 418 ms Normal sinus rhythm Right bundle branch block Borderline ECG When compared with ECG of 12-Mar-2024 10:14, QRS duration has increased Confirmed by Geovanny Jensen ([id number]) on 07/01/2025 2:11:14 PM Referred By: Confirmed By: Geovanny Jensen
--- NOTE | 2025-07-01 14:51 | CT Scan Report ---
CT chest diagnostic wo con CT DOSE: 305.08 mGy.cm CLINICAL HISTORY: pneumothorax. TECHNIQUE: Multiaxial CT images of the chest were performed without contrast. A dose lowering techni que was utilized adhering to the principles of ALARA. COMPARISON STUDY: Chest x-ray of 03/12/2024 FINDINGS: There is a small right pneumothorax with 1.3 cm pleural separation at the right apex. There is mild scarring in the lung apices and bases bilaterally. There is no pulmonary consolidation or pl eural effusion. No significant bullous change seen. No enlarged adenopathy. There is thickening of th e mid to distal esophagus. There are mild diffuse degenerative changes at the thoracic spine. There i s osteopenia. There is mild chronic-appearing height loss at a few thoracic vertebral bodies. There a re subacute fractures anteriorly and laterally at the left fourth through 10th ribs. IMPRESSION: 1. Small right pneumothorax. 2. Multiple subacute left-sided rib fractures. No pneumothorax seen on the left. 3. Thickening of the esophagus suspicious for esophageal cancer. There are a few mildly enlarged lymp h nodes at the visualized upper abdomen suspicious for metastatic disease. ACT 112: Positive. There are findings on this exam that require communication between the performing entity and the patient following Patient Test Result Information Act ([place] Act 112) guidelines. Electronically signed by: Winston Calderon M.D. 07/01/2025 2:48 PM
[2025-07-01] MEDS ORDERED: ONDANSETRON INJ 2 MG/ML 2 ML VIAL IV PRN (17:51)
[2025-07-01] MEDS ORDERED: MoRPHine SULFATE 4 MG/ML 1 ML CARP\\VIAL IV PRN (17:55)
[2025-07-01] MEDS: SODIUM CHLORIDE 0.9% 1,000 ML IV SCH (18:08)
[2025-07-01] MEDS: SIMVASTATIN 20 MG TAB PO SCH (20:33)
[2025-07-01] MEDS: ACETAMINOPHEN 325 MG TAB PO PRN (20:33)
[2025-07-01] MEDS: PANTOprazole 40 MG/10 ML SYR IV SCH (20:33)
[2025-07-01] MEDS: DOCUSATE SODIUM 100 MG CAP PO SCH (20:35)
[2025-07-01] MEDS ORDERED: PANTOprazole 40 MG/10 ML SYR IV SCH (21:00)
[2025-07-02] MEDS: POLYETHYLENE (MIRALAX) 17 GM PACK PO SCH (08:56)
[2025-07-02 09:55] LABS: Anion Gap 8.0 (3-11); Blood Urea Nitrogen 25.0 mg/dl (6-23); Calcium 9.2 mg/dl (8.6-10.3); Carbon Dioxide 25.0 mmol/L (21-32); Chloride 104.0 mmol/L (98-107); Creatinine Clr Calc Pharmacy 37.7 ml/min; Glucose 92.0 mg/dl (70-99(Fasting)); Potassium 4.2 mmol/L (3.5-5.1); Sodium 137.0 mmol/L (136-145)
--- NOTE | 2025-07-02 10:01 | XRay Report ---
XR chest 1V portable CLINICAL HISTORY: assess right pneumo COMPARISON STUDY: 07/01/2025. FINDINGS: Small right pneumothorax is stable. No consolidation or pleural effusion seen. Stable left rib fractures. IMPRESSION: Stable small right pneumothorax. ACT 112: Negative or not required by law. Electronically signed by: Winston Calderon M.D. 07/02/2025 10:00 AM
--- NOTE | 2025-07-02 10:53 | History & Physical Bridge Note ---
Date of Service July 02, 2025 History & Physical Bridge Note I have examined the patient, reviewed the History & Physical and in the interval since the performance of the History & Physical I have noted the following changes of clinical significance: Discussed with hospitalist. Pulmonology reportedly has cleared patient (their documentation is pending) due to the pneumothorax. Once formal pulm consult is documented, will plan to move forward with EGD today for further evaluation of CT abnormalities. Supervising Physician Co-Signing Physician Notes Cleared by pulmonary. Possible esophageal neoplasm. EGD today. Risk benefits discussed informed consent obtained
[2025-07-02 10:54] LABS: Hematocrit (blood only) 37.4 % (42.0-52.0); Hemoglobin 12.6 g/dl (14.0-18.0); Immature Granulocytes # (auto) 0.07 K/uL (0.01-0.20); Immature Granulocytes % (auto) 0.8 %; Mean Corpuscular Hemoglobin 29.2 pg (25.0-34.0); Mean Corpuscular Volume 86.8 fL (80.0-100.0); Platelet Count 237 K/uL (130-400); RDW Standard Deviation 40.9 fL (36.4-46.3); Red Blood Count 4.31 M/uL (4.70-6.10); White Blood Count 8.59 K/ul (4.8-10.8)
--- NOTE | 2025-07-02 11:52 | Electrocardiogram Report ---
Test Reason : Blood Pressure : */* mmHG Vent. Rate : 59 BPM Atrial Rate : 59 BPM P-R Int : 214 ms QRS Dur : 120 ms QT Int : 398 ms P-R-T Axes : 83 -4 47 degrees QTcB Int : 394 ms Sinus bradycardia with 1st degree A-V block Right bundle branch block Borderline ECG When compared with ECG of 01-Jul-2025 09:47, No significant change was found Confirmed by Geovanny Jensen ([id number]) on 07/02/2025 11:52:25 AM Referred By: REFERRED SELF Confirmed By: Geovanny Jensen
--- NOTE | 2025-07-02 13:59 | Pulmonary Consultation ---
Date of Consultation July 02, 2025 Assessment & Plan (1) Pneumothorax: * Small right basal pneumothorax, asymptomatic. Probably sealed-off. * Unlikely to be associated with presenting complaint or esophageal findings on CT * No further investigation needed. * No reservation against proceeding with EGD. 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 * Asymptomatic. Plan * No reservation against proceeding with EGD History of Present Illness Reason for Consultation: Right pneumothorax found incidentally on CT of chest. Attending Physician: Birgit George MD History of Present Illness The patient is a very pleasant 89-year-old male who presented to the ED with progressively worsening epigastric pain of four weeks duration. He described the pain as an intense burning sensation in the epigastric region, exacerbated by any oral intake, which led to a 20-pound weight loss over the preceding month due to poor appetite and avoidance of food and fluids. He reported associated generalized weakness, which had also been noted by his daughter, who described a significant decline in his activity level Imaging included a CT abdomen/pelvis, which revealed a small right basilar pneumothorax (likely related to a fall two months prior), healing left-sided rib fractures, nonspecific centrally necrotic gastrohepatic lymph nodes, and mild proximal to mid gastric wall thickening with partial distention. CT chest demonstrated esophageal thickening suspicious for malignancy and mildly enlarged upper abdominal lymph nodes concerning for possible metastatic disease. His past medical history included HTN, HLD, CKD stage 3, chronic back pain with radiculopathy (recently improved after L4/L5 interlaminar epidural steroid injection), GERD, and rosacea. He has a remote history of tobacco use and no pertinent family history. Because of incidental pneumothorax a pulmonary consult was requested prior to scheduling EGD. I interviewed the patient and examined him. I reviewed the record as above. Allergies Allergy/AdvReac Type Severity Reaction Status Date / Time No Known Allergies Allergy Verified 07/18/24 08:50 Home Medications Medication Instructions Recorded Confirmed Type omeprazole 20 mg tablet,delayed 20 mg PO BID Heartburn 05/02/19 07/01/25 History release cholecalciferol (vitamin D3) 25 25 mcg PO QAM 03/13/24 07/01/25 History mcg (1,000 unit) tablet (Vitamin D3) diphenhydramine 25 1 tab PO HS PRN pain/sleep 03/13/24 07/01/25 History mg-acetaminophen 500 mg tablet (Tylenol PM Extra Strength) simvastatin 20 mg tablet 20 mg PO QPM 03/13/24 07/01/25 History oxycodone 5 mg tablet 5 mg PO Q6H PRN pain #20 tabs 03/26/24 07/01/25 Rx amlodipine 10 mg tablet 10 mg PO DAILY 07/01/25 07/01/25 History cyanocobalamin (vitamin B-12) 0 mg PO DAILY 07/01/25 07/01/25 History lisinopril 20 1 tab PO DAILY 07/01/25 07/01/25 History mg-hydrochlorothiazide 12.5 mg tablet Patient History Medical History Prediabetes History of Mohs micrographic surgery for skin cancer Hx of colonic polyps Rosacea Hx of squamous cell carcinoma Hx of basal cell carcinoma GERD (gastroesophageal reflux disease) Hyperlipidemia Surgical History S/P epidural steroid injection lumbar History of colonoscopy S/P inguinal hernia repair right S/P carpal tunnel release left History of repair of rotator cuff (~2017) right Family History Other No pertinent family history Social History Smoking Status: Never smoker Tobacco Type: Smokeless Tobacco (Dip or Chew) Smoking End Date: quit 70 yrs ago; Second Hand Exposure: No; Do You Dip or Chew Tobacco: Yes; Tobacco Cessation Education Requested by Patient: No Hx Alcohol Use: No Hx Substance Use: No Preferred Language: Malagasy Communication Ability: Effective Parts Expediter Required: No Beliefs That Will Affect Care: None Current Living Situation: Family Current Living Situation Comment: lives with Daughter in law Other Information That Helps Us Care for You: No Feels Safe at Home: Yes Safety Concerns: Feels Safe At This Time Assistive Devices: None Review of Systems Review of Systems: All systems reviewed & are unremarkable except as noted in HPI & below Physical Exam Physical Exam: Vitals and labs reviewed. General: In no acute distress, breathing room-air. Skin: Warm and dry to touch. Multiple skin lesions (followed by Dermatology). Eyes: Anicteric.Noconjunctival hyperemia or exudates.No periorbital edema. ENT: No oral thrush. No oropharyngeal erythema or exudates. Modified-Mallampati 3 (Hard and soft palate seen). Dentures in place. Rhinophyma almost-totally covering both nostrils, but patient denies being symptomatic even during sleep. Neck: No palpable masses or adenopathy. Respiratory:Normal breath sounds, no wheezing or crackles. No use of accessory muscles and no prolonged exhalation. Cardiac: Regular rhythm, no murmurs, no gallops, no rubs; could not appreciate JV pulse elevation. GI: Soft, nontender. Extremities No clubbing,no cyanosis,no edema. Neuro: No gross motor deficits. Seems appropriate. No facial-droop. Speech is clear. Results & Data Results & Data Vital Signs (Past 12 Hours) Vital Signs Temp Pulse Pulse Resp BP Pulse Ox O2 Del Method 07/02/25 11:34 36.7 C 57 L 19 119/63 95 Room Air 07/02/25 07:42 37.0 C 57 L 19 113/61 95 Room Air 07/02/25 05:38 58 L 07/02/25 02:24 36.6 C 67 18 113/64 96 Room Air Laboratory Results 07/02/25 07/01/25 07/01/25 07:59 23:28 18:41 WBC 8.59 RBC 4.31 L Hgb 12.6 L D Hct 37.4 L MCV 86.8 MCH 29.2 MCHC 33.7 RDW Std Deviation 40.9 RDW Coeff of Freida 12.9 Plt Count 237 MPV 10.4 Immature Gran % (Auto) 0.8 Neut % (Auto) 61.0 Lymph % (Auto) 29.3 [place] % (Auto) 8.6 Eos % (Auto) 0.2 Baso % (Auto) 0.1 Neut # (Auto) 5.23 Lymph # (Auto) 2.52 [place] # (Auto) 0.74 H Eos # (Auto) 0.02 Baso # (Auto) 0.01 Immature Gran # (Auto) 0.07 Sodium 137 Potassium 4.2 Chloride 104 Carbon Dioxide 25 Anion Gap 8 BUN 25 H Creatinine 1.12 Est Cr Clr Drug Dosing 37.7 eGFR 62.79 BUN/Creatinine Ratio 22.3 H Glucose 92 Calcium 9.2 Troponin I High Sens 105.2 H* 117.6 H* Diagnostic Findings Chest CT 07/01/25 13:26 CT chest diagnostic wo con CT DOSE: 305.08 mGy.cm CLINICAL HISTORY: pneumothorax. TECHNIQUE: Multiaxial CT images of the chest were performed without contrast. A dose lowering technique was utilized adhering to the principles of ALARA. COMPARISON STUDY: Chest x-ray of 03/12/2024 FINDINGS: There is a small right pneumothorax with 1.3 cm pleural separation at the right apex. There is mild scarring in the lung apices and bases bilaterally. There is no pulmonary consolidation or pleural effusion. No significant bullous change seen. No enlarged adenopathy. There is thickening of the mid to distal esophagus. There are mild diffuse degenerative changes at the thoracic spine. There is osteopenia. There is mild chronic-appearing height loss at a few thoracic vertebral bodies. There are subacute fractures anteriorly and laterally at the left fourth through 10th ribs. IMPRESSION: 1. Small right pneumothorax. 2. Multiple subacute left-sided rib fractures. No pneumothorax seen on the left. 3. Thickening of the esophagus suspicious for esophageal cancer. There are a few mildly enlarged lymph nodes at the visualized upper abdomen suspicious for metastatic disease. ACT 112: Positive. There are findings on this exam that require communication between the performing entity and the patient following Patient Test Result Information Act ([place] Act 112) guidelines. Electronically signed by: Winston Calderon M.D. 07/01/2025 2:48 PM Chest X-Ray 07/02/25 09:33 XR chest 1V portable CLINICAL HISTORY: assess right pneumo COMPARISON STUDY: 07/01/2025. FINDINGS: Small right pneumothorax is stable. No consolidation or pleural effusion seen. Stable left rib fractures. IMPRESSION: Stable small right pneumothorax. ACT 112: Negative or not required by law. Electronically signed by: Winston Calderon M.D. 07/02/2025 10:00 AM Medications Administered Home Medications Medication Instructions Recorded Confirmed Last Taken omeprazole 20 mg tablet,delayed 20 mg PO BID Heartburn 05/02/19 07/01/25 Unknown release cholecalciferol (vitamin D3) 25 25 mcg PO QAM 03/13/24 07/01/25 Unknown mcg (1,000 unit) tablet (Vitamin D3) diphenhydramine 25 1 tab PO HS PRN pain/sleep 03/13/24 07/01/25 Unknown mg-acetaminophen 500 mg tablet (Tylenol PM Extra Strength) simvastatin 20 mg tablet 20 mg PO QPM 03/13/24 07/01/25 Unknown oxycodone 5 mg tablet 5 mg PO Q6H PRN pain #20 tabs 03/26/24 07/01/25 Unknown amlodipine 10 mg tablet 10 mg PO DAILY 07/01/25 07/01/25 07/01/25 cyanocobalamin (vitamin B-12) 0 mg PO DAILY 07/01/25 07/01/25 Unknown lisinopril 20 1 tab PO DAILY 07/01/25 07/01/25 Unknown mg-hydrochlorothiazide 12.5 mg tablet Active Medications Generic Name Dose Route Start Last Admin Trade Name Freq PRN Reason Stop Dose Admin Acetaminophen 650 mg 07/01/25 17:51 07/02/25 05:57 Acetaminophen 325 Mg Tab PO 07/31/25 17:50 650 mg Q4H PRN Administration Pain or Fever Amlodipine Besylate 10 mg 07/02/25 09:00 07/02/25 08:57 Amlodipine Besylate 5 Mg Tab PO 08/01/25 08:59 10 mg DAILY JANICE Administration Docusate Sodium 100 mg 07/01/25 21:00 07/02/25 08:59 Docusate Sodium 100 Mg Cap PO 07/31/25 20:59 100 mg BID JANICE Administration Famotidine 20 mg in 5 mls @ 2.5 mls/min 07/01/25 13:30 07/02/25 02:21 Pepcid 20mg Iv Push IV 07/31/25 13:29 2.5 mls/min Q12H JANICE Administration Pantoprazole Sodium 40 mg in 10 mls @ 5 mls/min 07/01/25 21:00 07/02/25 08:57 Protonix IV 07/31/25 20:59 5 mls/min BID JANICE Administration Oxycodone HCl 5 mg 07/01/25 17:51 07/02/25 05:57 Oxycodone Hcl Ir 5 Mg Tab (Immediate Release) PO 07/15/25 17:50 5 mg Q6H PRN Administration Moderate Pain (Scale 4, 5, 6) Polyethylene Glycol 17 gm 07/02/25 09:00 07/02/25 08:56 Polyethylene (Miralax) 17 Gm Pack PO 08/01/25 08:59 Not Given DAILY JANICE Simvastatin 20 mg 07/01/25 21:00 07/01/25 20:33 Simvastatin 20 Mg Tab PO 07/31/25 20:59 20 mg QPM JANICE Administration PG Care Time/CCT Total # of Minutes Spent Total Time Spent with Patient: Total time spent is greater than 50% in coordination of care (as documented) at patient's floor/unit and/or counseling patient: 65 Coding Level of Care Code 99618 IN/OBS CONSULT LVL 4,60M Diagnoses Other pneumothorax J93.83 Pneumothorax type: other pneumothorax Abnormal CT scan, esophagus R93.3 Rhinophyma L71.1 Time Spent (min) 65
--- NOTE | 2025-07-02 14:05 | Anesthesiology Consultation ---
Date of Service July 02, 2025 Assessment & Plan ASA ASA3 Proposed Anesthesia Anesthesia Type: MAC Risk / Benefits Reviewed With: PT / POA / Parent / Guardian, Accepts Plan and Informed Consent Obtained History Surgery Operation Date: 07/02/25 16:45 Proposed Procedures p Esophagogastroduodenoscopy Dr. Randy Padilla MD Height/Weight Height: 5 ft 7 in Weight: 59.6 kg Allergies Allergy/AdvReac Type Severity Reaction Status Date / Time No Known Allergies Allergy Verified 07/18/24 08:50 Medications Home Medications Medication Instructions Recorded Confirmed Last Taken omeprazole 20 mg tablet,delayed 20 mg PO BID Heartburn 05/02/19 07/01/25 Unknown release cholecalciferol (vitamin D3) 25 25 mcg PO QAM 03/13/24 07/01/25 Unknown mcg (1,000 unit) tablet (Vitamin D3) diphenhydramine 25 1 tab PO HS PRN pain/sleep 03/13/24 07/01/25 Unknown mg-acetaminophen 500 mg tablet (Tylenol PM Extra Strength) simvastatin 20 mg tablet 20 mg PO QPM 03/13/24 07/01/25 Unknown oxycodone 5 mg tablet 5 mg PO Q6H PRN pain #20 tabs 03/26/24 07/01/25 Unknown amlodipine 10 mg tablet 10 mg PO DAILY 07/01/25 07/01/25 07/01/25 cyanocobalamin (vitamin B-12) 0 mg PO DAILY 07/01/25 07/01/25 Unknown lisinopril 20 1 tab PO DAILY 07/01/25 07/01/25 Unknown mg-hydrochlorothiazide 12.5 mg tablet Active Medications Generic Name Dose Route Start Last Admin Trade Name Freq PRN Reason Stop Dose Admin Acetaminophen 650 mg 07/01/25 17:51 07/02/25 05:57 Acetaminophen 325 Mg Tab PO 07/31/25 17:50 650 mg Q4H PRN Administration Pain or Fever Amlodipine Besylate 10 mg 07/02/25 09:00 07/02/25 08:57 Amlodipine Besylate 5 Mg Tab PO 08/01/25 08:59 10 mg DAILY JANICE Administration Docusate Sodium 100 mg 07/01/25 21:00 07/02/25 08:59 Docusate Sodium 100 Mg Cap PO 07/31/25 20:59 100 mg BID JANICE Administration Famotidine 20 mg in 5 mls @ 2.5 mls/min 07/01/25 13:30 07/02/25 02:21 Pepcid 20mg Iv Push IV 07/31/25 13:29 2.5 mls/min Q12H JANICE Administration Pantoprazole Sodium 40 mg in 10 mls @ 5 mls/min 07/01/25 21:00 07/02/25 08:57 Protonix IV 07/31/25 20:59 5 mls/min BID JANICE Administration Oxycodone HCl 5 mg 07/01/25 17:51 07/02/25 05:57 Oxycodone Hcl Ir 5 Mg Tab (Immediate Release) PO 07/15/25 17:50 5 mg Q6H PRN Administration Moderate Pain (Scale 4, 5, 6) Polyethylene Glycol 17 gm 07/02/25 09:00 07/02/25 08:56 Polyethylene (Miralax) 17 Gm Pack PO 08/01/25 08:59 Not Given DAILY JANICE Simvastatin 20 mg 07/01/25 21:00 07/01/25 20:33 Simvastatin 20 Mg Tab PO 07/31/25 20:59 20 mg QPM JNAICE Administration NPO Date Last Intake of Fluids: 07/01/25 Time Last Intake of Fluids: 23:59 Date Last Intake of Solids: 07/01/25 Time Last Intake of Solids: 23:59 Past Medical History Medical History Prediabetes History of Mohs micrographic surgery for skin cancer Hx of colonic polyps Rosacea Hx of squamous cell carcinoma Hx of basal cell carcinoma GERD (gastroesophageal reflux disease) Hyperlipidemia Exercise / Class Metabolic Activity II 4-5 Yardwork/Stairs/Walk up hill Past Family History Family History Other No pertinent family history Past Surgical History Surgical History S/P epidural steroid injection lumbar History of colonoscopy S/P inguinal hernia repair right S/P carpal tunnel release left History of repair of rotator cuff (~2018) right Past Anesthesia History No Hx of Anesthesia Complications and No Family Hx of Anesthesia Complications History of PONV No Hx of PONV and No Hx of Motion Sickness Social History Smoking Status: Never smoker Do You Dip or Chew Tobacco: Yes Smoking End Date: quit 70 yrs ago Hx Alcohol Use: No Hx Substance Use: No substance use type: does not use Physical Exam Vital Signs Last Vital Signs Temp 36.7 C 07/02/25 11:34 Pulse 57 L 07/02/25 11:34 Resp 19 07/02/25 11:34 BP 119/63 07/02/25 11:34 Pulse Ox 95 07/02/25 11:34 O2 Del Method Room Air 07/02/25 11:34 Constitutional no acute distress ENMT Mouth: + dentition abnormality and + dentures Thyromental Distance: > or= 3.5 Finger Breadths Mallampati Class: II Neck normal visual inspection and + limited neck extension Respiratory normal respiratory effort; no respiratory distress Auscultation: lungs clear to auscultation bilaterally Cardiovascular Rate/Rhythm: regular rate and regular rhythm Heart Sounds: no murmur Musculoskeletal Spine: normal cervical ROM Psychiatric Orientation: alert and oriented x 3 Testing Laboratory Results 07/02/25 07:59 07/02/25 07:59 PT 10.9 Seconds (9.0-12.0) 07/01/25 09:24 INR 1.0 (0.9-1.1) 07/01/25 09:24 Urine Color Yellow 07/01/25 09:15 Urine Appearance Clear (Clear) 07/01/25 09:15 Urine pH 6.5 (4.5-7.5) 07/01/25 09:15 Ur Specific [place] 1.019 (1.000-1.030) 07/01/25 09:15 Urine Protein Negative (Negative) 07/01/25 09:15 Urine Glucose (UA) Negative (Negative) 07/01/25 09:15 Urine Ketones Negative (Negative) 07/01/25 09:15 Urine Nitrite Negative (Negative) 07/01/25 09:15 Ur Leukocyte Esterase Negative (Negative) 07/01/25 09:15 Day of Procedure Evaluation. Date of Surgery July 02, 2025 Height/Weight Height: 5 ft 7 in Weight: 59.6 kg Vital Signs Last Vital Signs Temp 36.7 C 07/02/25 11:34 Pulse 57 L 07/02/25 11:34 Resp 19 07/02/25 11:34 BP 119/63 07/02/25 11:34 Pulse Ox 95 07/02/25 11:34 O2 Del Method Room Air 07/02/25 11:34 Allergies Allergy/AdvReac Type Severity Reaction Status Date / Time No Known Allergies Allergy Verified 07/18/24 08:50 Medications Home Medications Medication Instructions Recorded Confirmed Last Taken omeprazole 20 mg tablet,delayed 20 mg PO BID Heartburn 05/02/19 07/01/25 Unknown release cholecalciferol (vitamin D3) 25 25 mcg PO QAM 03/13/24 07/01/25 Unknown mcg (1,000 unit) tablet (Vitamin D3) diphenhydramine 25 1 tab PO HS PRN pain/sleep 03/13/24 07/01/25 Unknown mg-acetaminophen 500 mg tablet (Tylenol PM Extra Strength) simvastatin 20 mg tablet 20 mg PO QPM 03/13/24 07/01/25 Unknown oxycodone 5 mg tablet 5 mg PO Q6H PRN pain #20 tabs 03/26/24 07/01/25 Unknown amlodipine 10 mg tablet 10 mg PO DAILY 07/01/25 07/01/25 07/01/25 cyanocobalamin (vitamin B-12) 0 mg PO DAILY 07/01/25 07/01/25 Unknown lisinopril 20 1 tab PO DAILY 07/01/25 07/01/25 Unknown mg-hydrochlorothiazide 12.5 mg tablet Active Medications Generic Name Dose Route Start Last Admin Trade Name Freq PRN Reason Stop Dose Admin Acetaminophen 650 mg 07/01/25 17:51 07/02/25 05:57 Acetaminophen 325 Mg Tab PO 07/31/25 17:50 650 mg Q4H PRN Administration Pain or Fever Amlodipine Besylate 10 mg 07/02/25 09:00 07/02/25 08:57 Amlodipine Besylate 5 Mg Tab PO 08/01/25 08:59 10 mg DAILY JANICE Administration Docusate Sodium 100 mg 07/01/25 21:00 07/02/25 08:59 Docusate Sodium 100 Mg Cap PO 07/31/25 20:59 100 mg BID JANICE Administration Famotidine 20 mg in 5 mls @ 2.5 mls/min 07/01/25 13:30 07/02/25 02:21 Pepcid 20mg Iv Push IV 07/31/25 13:29 2.5 mls/min Q12H JANICE Administration Pantoprazole Sodium 40 mg in 10 mls @ 5 mls/min 07/01/25 21:00 07/02/25 08:57 Protonix IV 07/31/25 20:59 5 mls/min BID JANICE Administration Oxycodone HCl 5 mg 07/01/25 17:51 07/02/25 05:57 Oxycodone Hcl Ir 5 Mg Tab (Immediate Release) PO 07/15/25 17:50 5 mg Q6H PRN Administration Moderate Pain (Scale 4, 5, 6) Polyethylene Glycol 17 gm 07/02/25 09:00 07/02/25 08:56 Polyethylene (Miralax) 17 Gm Pack PO 08/01/25 08:59 Not Given DAILY JANICE Simvastatin 20 mg 07/01/25 21:00 07/01/25 20:33 Simvastatin 20 Mg Tab PO 07/31/25 20:59 20 mg QPM JANICE Administration Past Anesthesia History No Hx of Anesthesia Complications and No Family Hx of Anesthesia Complications History of PONV No Hx of PONV and No Hx of Motion Sickness NPO Date Last Intake of Fluids: 07/01/25 Time Last Intake of Fluids: 23:59 Date Last Intake of Solids: 07/01/25 Time Last Intake of Solids: 23:59 Home Medications Home Medications Medication Instructions Recorded Confirmed Last Taken omeprazole 20 mg tablet,delayed 20 mg PO BID Heartburn 05/02/19 07/01/25 Unknown release cholecalciferol (vitamin D3) 25 25 mcg PO QAM 03/13/24 07/01/25 Unknown mcg (1,000 unit) tablet (Vitamin D3) diphenhydramine 25 1 tab PO HS PRN pain/sleep 03/13/24 07/01/25 Unknown mg-acetaminophen 500 mg tablet (Tylenol PM Extra Strength) simvastatin 20 mg tablet 20 mg PO QPM 03/13/24 07/01/25 Unknown oxycodone 5 mg tablet 5 mg PO Q6H PRN pain #20 tabs 03/26/24 07/01/25 Unknown amlodipine 10 mg tablet 10 mg PO DAILY 07/01/25 07/01/25 07/01/25 cyanocobalamin (vitamin B-12) 0 mg PO DAILY 07/01/25 07/01/25 Unknown lisinopril 20 1 tab PO DAILY 07/01/25 07/01/25 Unknown mg-hydrochlorothiazide 12.5 mg tablet Active Medications Generic Name Dose Route Start Last Admin Trade Name Freq PRN Reason Stop Dose Admin Acetaminophen 650 mg 07/01/25 17:51 07/02/25 05:57 Acetaminophen 325 Mg Tab PO 07/31/25 17:50 650 mg Q4H PRN Administration Pain or Fever Amlodipine Besylate 10 mg 07/02/25 09:00 07/02/25 08:57 Amlodipine Besylate 5 Mg Tab PO 08/01/25 08:59 10 mg DAILY JANICE Administration Docusate Sodium 100 mg 07/01/25 21:00 07/02/25 08:59 Docusate Sodium 100 Mg Cap PO 07/31/25 20:59 100 mg BID JANICE Administration Famotidine 20 mg in 5 mls @ 2.5 mls/min 07/01/25 13:30 07/02/25 02:21 Pepcid 20mg Iv Push IV 07/31/25 13:29 2.5 mls/min Q12H JANICE Administration Pantoprazole Sodium 40 mg in 10 mls @ 5 mls/min 07/01/25 21:00 07/02/25 08:57 Protonix IV 07/31/25 20:59 5 mls/min BID JANICE Administration Oxycodone HCl 5 mg 07/01/25 17:51 07/02/25 05:57 Oxycodone Hcl Ir 5 Mg Tab (Immediate Release) PO 07/15/25 17:50 5 mg Q6H PRN Administration Moderate Pain (Scale 4, 5, 6) Polyethylene Glycol 17 gm 07/02/25 09:00 07/02/25 08:56 Polyethylene (Miralax) 17 Gm Pack PO 08/01/25 08:59 Not Given DAILY JANICE Simvastatin 20 mg 07/01/25 21:00 07/01/25 20:33 Simvastatin 20 Mg Tab PO 07/31/25 20:59 20 mg QPM JANICE Administration Exercise / Class Metabolic Activity Metabolic Activity: II 4-5 Yardwork/Stairs/Walk up hill Physical Exam Constitutional: no acute distress Mouth: + dentition abnormality and + dentures Thyromental Distance: > or= 3.5 Finger Breadths Mallampati Class: II Neck: + visual inspection normal and + limited neck extension Respiratory: + respiratory effort normal and + clear to auscultation bilaterally; no respiratory distress Cardiovascular: + regular rate and + regular rhythm; no murmur Musculoskeletal: no limited cervical ROM Psychiatric: + alert and + oriented x 3 ASA ASA3 Proposed Anesthesia Proposed Anesthesia: MAC Risk / Benefits Reviewed With: PT / POA / Parent / Guardian, Accepts Plan and Informed Consent Obtained
--- NOTE | 2025-07-02 14:26 | Hospitalist Progress Note ---
Date of Service July 02, 2025 Assessment & Plan (1) Epigastric pain: (2) Pneumothorax: (3) Elevated troponin: (4) CKD (chronic kidney disease) stage 3, GFR 30-59 ml/min: (5) Chronic back pain: (6) Hypertension: (7) Hyperlipidemia: (8) GERD (gastroesophageal reflux disease): (9) Rosacea: Plan Mr. Montoya is an 89 year old male with PMH HTN, dyslipidemia, CKD III, chronic back pain, GERD, rosacea admitted for evaluation of dysphagia and found to have esophageal mass. Admission imaging revealed chronic rib fractures and a small pneumothorax from a fall sustained "a couple of weeks ago." CT imaging revealed gastric and esophageal thickening. Pulmonary notes reviewed today--nothing preventing further EGD 2/2 pneumothorax. No further management at this time Reviewed EGD report ultimately performed and revealed circumferential lesion in esophagus. Plan for oncology consultation in am and continue soft diet #circumferential esophageal mass #Abnormal CT abdomen CT abd/pelvis: 1. Small right basilar pneumothorax. No right-sided rib fractures are identifi ed. 2. Healing subacute left rib fractures. 3. No bowel obstruction or bowel wall thickening. 4. Nonspecific centrally necrotic gastrohepatic lymph nodes may be amendable to endoscopic biopsy. 5. Mild nonspecific proximal to mid gastric wall thickening with partial distention. EGD: circumfrential mass, suspicious for malignancy Heme onc consult soft diet ordered pathology pending #Pneumothorax CT abd/pelvis: had noted small right pneumothorax CT Chest: 1. Small right pneumothorax. 2. Multiple subacute left-sided rib fractures. No pneumothorax seen on the left. encourage IS pulm notes reviewed, no further management #Generalized weakness #protein calorie malnutrition weight loss reported in last few months iso dysphagia multiple falls noted PT/OT #Elevated troponin: Denies CP, SOB Troponin: 127-->105, downtrended Will trend troponin likely demand iso dehydrationpat #Leukocytosis WBC: 14.8. UA unremarkable. CT chest without noted infiltrate Did receive FLORENTINO on 06/26 Monitor #CKD (chronic kidney disease) stage 3, GFR 30-59 ml/min: Cr: 1.3 (baseline ~1.4) Monitor renal functions avoid nephrotoxic agents when possible # Chronic back pain: continue home oxycodone 1-2 times a day. #Hypertension: Continue amlodipine Will hold lisinopril and HCTZ as possible procedure tomorrow #Hyperlipidemia: Continue statin #GERD (gastroesophageal reflux disease): Holding home oral PPI, continue IV PPI for now DVT Prophylaxis SCDs for now heparin sq Follows with Dr Aldridge for routine care Admission and Anticipated Discharge Date Admission Date: July 01, 2025 Subjective admitted day prior reports chronic dysphagia, reports progressive and limiting po intake denies any chest pain, epigastric pain this am verbalizes understanding for EGD to eval findings on CT Physical Exam Constitutional: WD/WN, vitals as above Respiratory: normal respiratory effort, lungs clear to auscultation Cardiovascular: RRR, no murmur, no edema Gastrointestinal (Abdomen): normal bowel sounds, soft, nontender, no hepatosplenomegaly Neurologic: PERRL, EOMI, accommodation nl, no face palsy, no dysarthria Results & Data Results & Data Vital Signs (Past 12 Hours) Vital Signs Temp Pulse Pulse Resp BP Pulse Ox O2 Del Method 07/02/25 14:06 36.7 C 68 16 149/70 H 93 Room Air 07/02/25 11:34 36.7 C 57 L 19 119/63 95 Room Air 07/02/25 07:42 37.0 C 57 L 19 113/61 95 Room Air 07/02/25 05:38 58 L Laboratory Results Short CBC 07/02/25 Range/Units 07:59 WBC 8.59 (4.8-10.8) K/ul Hgb 12.6 L D (14.0-18.0) g/dl Hct 37.4 L (42.0-52.0) % Plt Count 237 (130-400) K/uL BMP 07/02/25 07:59 Sodium 137 Potassium 4.2 Chloride 104 Carbon Dioxide 25 BUN 25 H Creatinine 1.12 Glucose 92 Calcium 9.2 Medications Administered Home Medications Medication Instructions Recorded Confirmed Last Taken omeprazole 20 mg tablet,delayed 20 mg PO BID Heartburn 05/02/19 07/01/25 Unknown release cholecalciferol (vitamin D3) 25 25 mcg PO QAM 03/13/24 07/01/25 Unknown mcg (1,000 unit) tablet (Vitamin D3) diphenhydramine 25 1 tab PO HS PRN pain/sleep 03/13/24 07/01/25 Unknown mg-acetaminophen 500 mg tablet (Tylenol PM Extra Strength) simvastatin 20 mg tablet 20 mg PO QPM 03/13/24 07/01/25 Unknown oxycodone 5 mg tablet 5 mg PO Q6H PRN pain #20 tabs 03/26/24 07/01/25 Unknown amlodipine 10 mg tablet 10 mg PO DAILY 07/01/25 07/01/25 07/01/25 cyanocobalamin (vitamin B-12) 0 mg PO DAILY 07/01/25 07/01/25 Unknown lisinopril 20 1 tab PO DAILY 07/01/25 07/01/25 Unknown mg-hydrochlorothiazide 12.5 mg tablet Active Medications Generic Name Dose Route Start Last Admin Trade Name Freq PRN Reason Stop Dose Admin Acetaminophen 650 mg 07/01/25 17:51 07/02/25 05:57 Acetaminophen 325 Mg Tab PO 07/31/25 17:50 650 mg Q4H PRN Administration Pain or Fever Amlodipine Besylate 10 mg 07/02/25 09:00 07/02/25 08:57 Amlodipine Besylate 5 Mg Tab PO 08/01/25 08:59 10 mg DAILY JANICE Administration Docusate Sodium 100 mg 07/01/25 21:00 07/02/25 08:59 Docusate Sodium 100 Mg Cap PO 07/31/25 20:59 100 mg BID JANICE Administration Famotidine 20 mg in 5 mls @ 2.5 mls/min 07/01/25 13:30 07/02/25 15:31 Pepcid 20mg Iv Push IV 07/31/25 13:29 2.5 mls/min Q12H JANICE Administration Pantoprazole Sodium 40 mg in 10 mls @ 5 mls/min 07/01/25 21:00 07/02/25 08:57 Protonix IV 07/31/25 20:59 5 mls/min BID JANICE Administration Oxycodone HCl 5 mg 07/01/25 17:51 07/02/25 05:57 Oxycodone Hcl Ir 5 Mg Tab (Immediate Release) PO 07/15/25 17:50 5 mg Q6H PRN Administration Moderate Pain (Scale 4, 5, 6) Polyethylene Glycol 17 gm 07/02/25 09:00 07/02/25 08:56 Polyethylene (Miralax) 17 Gm Pack PO 08/01/25 08:59 Not Given DAILY JANICE Simvastatin 20 mg 07/01/25 21:00 07/01/25 20:33 Simvastatin 20 Mg Tab PO 07/31/25 20:59 20 mg QPM JANICE Administration (2) Pneumothorax Pneumothorax type: other pneumothorax Qualified Code(s): J93.83 - Other pneumothorax (4) CKD (chronic kidney disease) stage 3, GFR 30-59 ml/min Chronic kidney disease stage 3 subtype: unspecified whether 3a or 3b Qualified Code(s): N18.30 - Chronic kidney disease, stage 3 unspecified (6) Hypertension Hypertension type: unspecified Qualified Code(s): I10 - Essential (primary) hypertension
--- NOTE | 2025-07-02 14:42 | Communication Note ---
Date of Service: July 02, 2025 EGD plus Yes circumferential mass from 25 to 33 cm. Nonobstructing. 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 Biopsies performed. Soft diet hematology oncology consultation
--- NOTE | 2025-07-02 14:47 | GI REPORT ---
[facility] Patient: NIRAJ MCCULLOUGH : 1935 Sex at : Male Age: 89 Years Procedure: Upper GI endoscopy Date: 07/02/2025 Attending Physician: Madhav Padilla MD Referring MD: Birgit George Md Indications: - Dysphagia - Abnormal CT of the chest Medications: - Monitored Anesthesia Care - Monitored Anesthesia Care Complications: - No immediate complications. Estimated Blood Loss: - Estimated blood loss was minimal. Procedure: - The egd scope was introduced through the mouth and advanced to the second part of the duodenum. - The upper GI endoscopy was accomplished without difficulty. - The patient tolerated the procedure well. Findings: - There were esophageal mucosal changes present in the lower third of the esophagus suspicious for long-segment Valerio's esophagus. The maximum longitudinal extent of these mucosal changes was 8 cm in length. - A medium-sized, ulcerating mass was found in the lower third of the esophagus, 25 to 33 cm from the incisors. The mass was circumferential. The epicenter of the tumor was in the distal esophagus. Biopsies were taken with a cold forceps for histology. histology Estimated blood loss was minimal. - A medium-sized hiatal hernia was present. - The examined duodenum was normal. 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 Biopsied. - Medium-sized hiatal hernia. - Normal examined duodenum. Recommendation: - Await pathology results. - Soft diet, hematology oncology consult Procedure Code(s): - 30330, Esophagogastroduodenoscopy, flexible, transoral; with biopsy, single or multiple Diagnosis Code(s): - R13.10, Dysphagia, unspecified - D49.0, Neoplasm of unspecified behavior of digestive system - K44.9, Diaphragmatic hernia without obstruction or gangrene - K22.89, Other specified disease of esophagus CPT(R) - 2023 copyright [employer]. All Rights Reserved. The CPT codes, CCI edits and ICD codes generated are intended as suggestions and were generated based on input data. These codes are preliminary and upon performance test engineer review may be revised to meet current compliance and payer requirements. The provider is responsible for the final determination of appropriate codes, and modifiers. Madhav Padilla MD This document has been electronically signed. Note Initiated:07/02/2025 Note Completed:07/02/2025 2:46 PM [id number]
--- NOTE | 2025-07-02 15:01 | Anesthesiology Progress Note ---
Date of Service July 02, 2025 Anesthesia Post Procedure Vital Signs Vital Signs: Temp Pulse Pulse Resp BP BP Pulse Ox 07/02/25 15:00 86 16 112/49 L 97 07/02/25 14:45 67 16 107/47 L 96 07/02/25 14:06 36.7 C 68 16 149/70 H 93 07/02/25 11:34 36.7 C 57 L 19 119/63 95 07/02/25 07:42 37.0 C 57 L 19 113/61 95 07/02/25 05:38 58 L 07/02/25 02:24 36.6 C 67 18 113/64 96 07/02/25 00:00 58 L 07/01/25 22:26 36.5 C 60 18 106/58 L 95 07/01/25 19:07 36.8 C 79 18 127/66 93 07/01/25 17:50 36.6 C 63 18 133/68 96 07/01/25 17:13 36.7 C 61 20 144/72 H 95 07/01/25 15:36 60 14 93 O2 Del Method 07/02/25 15:00 Room Air 07/02/25 14:45 Room Air 07/02/25 14:06 Room Air 07/02/25 11:34 Room Air 07/02/25 07:42 Room Air 07/02/25 05:38 07/02/25 02:24 Room Air 07/02/25 00:00 07/01/25 22:26 Room Air 07/01/25 19:07 Room Air 07/01/25 17:50 Room Air 07/01/25 17:13 Room Air 07/01/25 15:36 Transfer of Care Handoff Completed per policy Notes Mental Status: alert / awake / arousable and participated in evaluation Nausea / Vomiting: adequately controlled Pain: adequately controlled Airway Patency, RR, SpO2: stable & adequate BP & HR: stable & adequate Hydration State: stable & adequate Anesthetic Complications: no major complications apparent and Pt Satisfied with anesthetic care
[2025-07-02] MEDS: GLYCOPYRROLATE 0.2 MG/ML VIAL ONE (15:29)
[2025-07-02] MEDS: LIDOCAINE 2% 2 ML VIAL/AMP(20MG/ML) INFIL ONE (15:30)
[2025-07-02] MEDS: ONDANSETRON INJ 2 MG/ML 2 ML VIAL ONE (15:30)
[2025-07-02] MEDS: PROPOFOL IV EMULSION 10 MG/ML 20 ML VIAL IV ONE (15:30)
[2025-07-02] MEDS: ePHEDrine sulfate 50 MG/5 ML SYR ONE (15:31)
--- NOTE | 2025-07-02 20:45 | XCELERA ---
[id number]
[2025-07-02] MEDS: HEPARIN SOD 5,000 UNIT/0.5 ML VIAL SQ SCH (22:14)
[2025-07-03 07:47] LABS: Hematocrit (blood only) 36.8 % (42.0-52.0); Hemoglobin 12.9 g/dl (14.0-18.0); Mean Corpuscular Hemoglobin 30.2 pg (25.0-34.0); Mean Corpuscular Volume 86.2 fL (80.0-100.0); Platelet Count 243 K/uL (130-400); RDW Standard Deviation 39.9 fL (36.4-46.3); Red Blood Count 4.27 M/uL (4.70-6.10); White Blood Count 7.69 K/ul (4.8-10.8)
[2025-07-03 08:09] LABS: Anion Gap 10.0 (3-11); Blood Urea Nitrogen 29.0 mg/dl (6-23); Calcium 9.2 mg/dl (8.6-10.3); Carbon Dioxide 23.0 mmol/L (21-32); Chloride 105.0 mmol/L (98-107); Creatinine Clr Calc Pharmacy 34.3 ml/min; Glucose 102.0 mg/dl (70-99(Fasting)); Iron 67.0 mcg/dl (35-175); Magnesium 1.8 mg/dl (1.7-2.4); Potassium 4.3 mmol/L (3.5-5.1); Sodium 138.0 mmol/L (136-145); Total Iron Binding Cap Calc 231.0 mcg/dl (250-450); Transferrin 165.0 mg/dl (200-360); Transferrin (FE) Percent Satur 29.0 % (20-50)
[2025-07-03 08:28] LABS: Ferritin 234.4 ng/ml (8-388)
[2025-07-03 08:34] LABS: Folate (Folic Acid),Ser orPlas 11.06 ng/ml (>5.38)
[2025-07-03 08:35] LABS: Vitamin B12 646.0 pg/ml (180-914)
--- NOTE | 2025-07-03 10:29 | Oncology Consultation ---
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 I had an extensive discussion with patient and his daughter today. Explained to them that imaging and EGD suspicious for esophageal cancer. Treatment options include supportive care, neoadjuvant chemotherapy followed by surgery, definitive concurrent chemoradiation treatment or palliative radiation therapy. Given his age and comorbidities, would not recommend chemotherapy. Recommend consideration for palliative radiation therapy. Will schedule him for evaluation by radiation oncology upon discharge from hospital. History of Present Illness Reason for Consultation: Esophageal mass Attending Physician: Birgit George MD History of Present Illness 89-year-old gentleman admitted to [facility] with complaints of epigastric pain. CT chest obtained on 07/01/2025 revealed small right pneumothorax, multiple subacute left-sided rib fractures and thickening of the esophagus suspicious for esophageal cancer with few mildly enlarged lymph nodes at the visualized upper abdomen suspicious for metastatic disease. CT abdomen and pelvis revealed nonspecific centrally necrotic gastrohepatic lymph nodes, mild nonspecific proximal to mid gastric wall thickening with partial distention. EGD on 06/24/2025 revealed esophageal mucosal changes suspicious for long segment Valerio's esophagus, likely malignant esophageal tumor in the lower third of the esophagus which was biopsied, medium sized hiatal hernia. Pathology from esophageal mass biopsy still pending. Allergies Allergy/AdvReac Type Severity Reaction Status Date / Time No Known Allergies Allergy Verified 07/02/25 14:13 Home Medications Medication Instructions Recorded Confirmed Type cholecalciferol (vitamin D3) 25 25 mcg PO QAM 03/13/24 07/01/25 History mcg (1,000 unit) tablet (Vitamin D3) diphenhydramine 25 1 tab PO HS PRN pain/sleep 03/13/24 07/01/25 History mg-acetaminophen 500 mg tablet (Tylenol PM Extra Strength) simvastatin 20 mg tablet 20 mg PO QPM 03/13/24 07/01/25 History amlodipine 10 mg tablet 10 mg PO DAILY 07/01/25 07/01/25 History cyanocobalamin (vitamin B-12) 0 mg PO DAILY 07/01/25 07/01/25 History docusate sodium 100 mg capsule 100 mg PO BID 30 days #60 caps 07/03/25 Rx famotidine 20 mg tablet 20 mg PO BID 30 days #60 tabs 07/03/25 Rx oxycodone 5 mg tablet 5 mg PO Q6H PRN pain 14 days #56 07/03/25 Rx tabs pantoprazole 40 mg tablet,delayed 40 mg PO BID 30 days #60 tabs 07/03/25 Rx release Patient History Medical History Prediabetes History of Mohs micrographic surgery for skin cancer Hx of colonic polyps Rosacea Hx of squamous cell carcinoma Hx of basal cell carcinoma GERD (gastroesophageal reflux disease) Hyperlipidemia Surgical History S/P epidural steroid injection lumbar History of colonoscopy S/P inguinal hernia repair right S/P carpal tunnel release left History of repair of rotator cuff (~2017) right Family History Other No pertinent family history Social History Smoking Status: Never smoker Tobacco Type: Smokeless Tobacco (Dip or Chew) Second Hand Exposure: No; Do You Dip or Chew Tobacco: Yes; Hx Alcohol Use: No Hx Substance Use: No Preferred Language: Yoruba Communication Ability: Effective Milieu Coordinator Required: No Beliefs That Will Affect Care: None Current Living Situation: Family Current Living Situation Comment: lives with Daughter in law Feels Safe at Home: Yes Assistive Devices: None Results & Data Vital Signs (Past 12 Hours) Vital Signs Temp Pulse Pulse Resp BP Pulse Ox O2 Del Method 07/03/25 08:17 36.6 C 67 18 129/75 93 Room Air 07/03/25 05:46 55 L 07/03/25 02:58 37.2 C 68 16 119/68 97 Room Air 07/02/25 23:11 36.6 C 73 16 123/71 96 Room Air
--- NOTE | 2025-07-03 11:34 | Gastroenterology Progress Note ---
Date of Service July 03, 2025 Assessment & Plan (1) Esophageal mass: Plan: -Await biopsies -Continue Protonix at 40 mg BID on discharge as he did not have as good of a response to the Omeprazole he was taking at home. -Continue Famotidine at 40 mg BID on discharge -Anticipate oncology evaluation pending biopsy results Admission and Anticipated Discharge Date Admission Date: July 01, 2025 Subjective Patient is an 89 yo male who underwent an EGD on 07/02/25 that was indicative of an esophageal mass concerning for cancer. Biopsies are pending. He notes improvement of his epigastric discomfort since admission. Review of Systems Gastrointestinal: + abdominal pain (improving ) Physical Exam Constitutional: well developed Respiratory: normal respiratory effort Gastrointestinal (Abdomen): normal bowel sounds, soft, nontender, no hepatosplenomegaly Psychiatric: Orientation: alert and oriented x 3 Results & Data Results & Data Vital Signs (Past 12 Hours) Vital Signs Temp Pulse Pulse Resp BP Pulse Ox O2 Del Method 07/03/25 08:17 36.6 C 67 18 129/75 93 Room Air 07/03/25 05:46 55 L 07/03/25 02:58 37.2 C 68 16 119/68 97 Room Air PG Care Time/CCT Total # of Minutes Spent Total Time Spent with Patient: Total time spent is greater than 50% in coordination of care (as documented) at patient's floor/unit and/or counseling patient: Coding Level of Care Code 41093 SUB INP/OBS CARE 2/35MIN Diagnoses Esophageal mass K22.89
[2025-07-03 11:39] VITALS: O2SAT 94
[2025-07-03 15:30] VITALS: RESP 20; TEMP 98.4
--- NOTE | 2025-07-03 17:22 | Discharge Summary ---
Discharge Summary Date of Service July 03, 2025 Principal Dx & Hospital Course #1 = Principal Diagnosis (1) Epigastric pain: (2) Pneumothorax: (3) Elevated troponin: (4) CKD (chronic kidney disease) stage 3, GFR 30-59 ml/min: (5) Chronic back pain: (6) Hypertension: (7) Hyperlipidemia: (8) GERD (gastroesophageal reflux disease): (9) Rosacea: Plan Mr. Montoya is an 89 year old male with PMH HTN, dyslipidemia, CKD III, chronic back pain, GERD, rosacea admitted for evaluation of dysphagia and found to have esophageal mass. Admission imaging revealed chronic rib fractures and a small pneumothorax from a fall sustained "a couple of weeks ago." CT imaging revealed gastric and esophageal thickening. Pulmonary notes reviewed today--nothing preventing further EGD 2/2 pneumothorax. No further management recommended Reviewed EGD report ultimately performed and revealed circumferential lesion in esophagus. Oncology evaluated patient and plans to refer for palliative radiation. On day of discharge, patient reports ability to tolerate ground/soft diet. He was ambulatory, pain controlled, and denied any new concerns. Daughter was at bedside and verbalized understanding. #circumferential esophageal mass #Abnormal CT abdomen CT abd/pelvis: 1. Small right basilar pneumothorax. No right-sided rib fractures are identified. 2. Healing subacute left rib fractures. 3. No bowel obstruction or bowel wall thickening. 4. Nonspecific centrally necrotic gastrohepatic lymph nodes may be amendable to endoscopic biopsy. 5. Mild nonspecific proximal to mid gastric wall thickening with partial distention. EGD: circumfrential mass, suspicious for malignancy Heme onc consult: plan for OP palliative radiation soft diet continued pathology pending continue with Protonix bid and famotidine bid #Pneumothorax CT abd/pelvis: had noted small right pneumothorax CT Chest: 1. Small right pneumothorax. 2. Multiple subacute left-sided rib fractures. No pneumothorax seen on the left. encourage IS pulm notes reviewed, no further management #Generalized weakness #protein calorie malnutrition weight loss reported in last few months iso dysphagia multiple falls noted declined further services at this time #Elevated troponin: Denies CP, SOB Troponin: 127-->105, downtrended Will trend troponin likely demand iso dehydration #Leukocytosis WBC: 14.8. UA unremarkable. CT chest without noted infiltrate Did receive FLORENTINO on 06/26 Monitor #CKD (chronic kidney disease) stage 3, GFR 30-59 ml/min: Cr: 1.3 (baseline ~1.4) Monitor renal functions avoid nephrotoxic agents when possible # Chronic back pain: continue home oxycodone 1-2 times a day. #Hypertension: Continue amlodipine Will hold lisinopril and HCTZ as normotensive without and poor po intake anticipated to continue #Hyperlipidemia: Continue statin #GERD (gastroesophageal reflux disease): PPI BID and H2B BID Notes For Next Care Provider Medication Changes From Visit protonix 40mg bid famotodine 20mg bid Admission HPI Per Admitting Provider Patient is 89 year old male with PMH HTN, dyslipidemia, CKD III, chronic back pain, GERD, rosacea on presented to ER with c/o burning sensation to epigastric x 4 weeks. Patient states for past 4 weeks having burning sensation to epigastric region with radiation up chest with eating and drinking. He reports poor oral intake secondary to discomfort. States for past year after cervical spine procedure has had some dysphagia with swallowing large pills. Reports weight loss of 20 pounds over past month. He states having generalized weakness since decreased oral intake. Per outpatient chart review seen by PCP on 06/12/25 and had reported stomach burning and PPI was increased from daily to BID, gabapentin was discontinued secondary to large pill size and his aspirin was also discontinued. He is scheduled for EGD in July. He has not been taking doxycycline. He has been having low back pain with radiculopathy and on 06/26/25 interventional pain management and had L4/L5 interlaminar FLORENTINO. He is using oxycodone 1-2 times a day. He feels after the spinal injection his pain is much improved. Having constipation since starting oxycodone. Last BM two days ago. Patient reports had fall 2 months ago resulting in left sided rib fractures. At that time reports left sided rib pain which has since resolved. Per outpatient chart review on 04/29/2025: CT chest: No pulmonary contusion or pneumothorax, multiple acute left-sided rib fractures, acute fracture. Denies right sided chest pain. Denies SOB. Denies fever/chills, diaphoresis, N/V/D, melena, hematochezia, DÍAZ, dizziness, syncope, vision changes, neck pain, orthopnea, pa lpitations, cough, sore throat, otalgia, rhinorrhea, other abdominal pain, paresthesias, extremity edema, rashes, urinary symptoms. Admission Exam Per Admitting Provider Physical Exam: General: no acute distress, WDWN eldelry male Head: normocephalic, atraumatic Eyes: conjunctiva non-injected, anicteric ENT: normal inspection external ears, nose, mucous membranes moist Neck: supple, trachea midline, non-tender Lungs: clear, no respiratory distress, no wheezing/rhonchi/rales CV: distant heart sounds, RRR, no murmur appreciated but difficult auscultation, no pretibial edema Abd: normal BS, soft,+tenderness to palpation epigastric region only Ext: no cyanosis, no calf tenderness Neuro: A&O x 3, no focal deficits noted, normal affect Skin: warm, dry Discharge Exam Constitutional thin, elderly gentleman Respiratory normal respiratory effort, lungs clear to auscultation Cardiovascular RRR, no murmur, no edema Gastrointestinal (Abdomen) normal bowel sounds, soft, nontender, no hepatosplenomegaly Updated Medication List Medication Instructions Recorded Confirmed Type cholecalciferol (vitamin D3) 25 25 mcg PO QAM 03/13/24 07/01/25 History mcg (1,000 unit) tablet (Vitamin D3) diphenhydramine 25 1 tab PO HS PRN pain/sleep 03/13/24 07/01/25 History mg-acetaminophen 500 mg tablet (Tylenol PM Extra Strength) simvastatin 20 mg tablet 20 mg PO QPM 03/13/24 07/01/25 History amlodipine 10 mg tablet 10 mg PO DAILY 07/01/25 07/01/25 History cyanocobalamin (vitamin B-12) 0 mg PO DAILY 07/01/25 07/01/25 History docusate sodium 100 mg capsule 100 mg PO BID 30 days #60 caps 07/03/25 Rx famotidine 20 mg tablet 20 mg PO BID 30 days #60 tabs 07/03/25 Rx oxycodone 5 mg tablet 5 mg PO Q6H PRN pain 14 days #56 07/03/25 Rx tabs pantoprazole 40 mg tablet,delayed 40 mg PO BID 30 days #60 tabs 07/03/25 Rx release Hospital Stay Data Consultations 07/01/25 13:07 Consult Gastroenterology Routine 07/01/25 13:13 ED Decision to Admit Stat 07/01/25 15:23 Consult Pulmonology Stat 07/01/25 17:51 Consult Gastroenterology Routine 07/02/25 15:30 Consult Oncology Routine Procedures Performed Operation Date: 07/02/25 16:45 Actual Procedures p EGD Biopsy Cytology - Madhav Padilla MD Diagnostic Imagining Performed 07/01/25 09:42 CT abd pelvis IV con only Stat 07/01/25 13:26 CT chest diagnostic wo con Stat Pending Results Patient Have Any Pending Studies at Discharge: Yes (pathology reports ) Discharge Instructions Given to Patient (Per Discharging Provider) you were admitted for painful swallowing. You underwent EGD and found to have a circumferential mass concerning for malignancy You were seen by Oncology who will refer you for radiation You will follow up with Oncology and Palliative Medicine. please consider a soft/ground food diet to help prevent food from getting stuck or causing irritation Please start Protonix 40mg two times a day and famotidine 20mg two times a day to help with reflux like discomfort. Total Time Total Time Spent Total Time Spent (In Minutes): 45
[2025-07-03 17:26] VITALS: BP 150/72
[2025-07-03 17:27] VITALS: PULSE 56
[2025-07-03] MEDS ORDERED: PANTOprazole 40 MG/10 ML SYR IV SCH (21:00)
[2025-07-03] MEDS ORDERED: FAMOTIDINE 20 MG TAB PO SCH (21:00)
== END 2025-07-03 18:28 | disposition home or self-care (01) | DRG 375 ==
LOC: ED 08:53 → SUATTDRO 13:46 → EDINP 13:46 → 2S 17:13

== ENCOUNTER 2025-08-04 17:01 | Inpatient (IN) ==
--- NOTE | 2025-08-04 17:23 | Emergency Department Note ---
Impression & Plan Abdominal pain, Intractable abdominal pain, Metastatic cancer ED Provider Note HISTORY OF PRESENT ILLNESS: Patient is an 89-year-old male presenting with epigastric abdominal pain. Patient reports he has been having progressively worsening pain over the last 3 weeks. He states that he had a PET scan on Tuesday. Reports that he has been nauseous and unable to tolerate oral intake since that scan. He has an appointment with radiation oncology tomorrow. He denies any fevers or chills. Reports that anytime he tries to eat or drink anything he feels very nauseous and has been unable to tolerate swallowing. He states the pain in his epigastric region feels very sharp. Denies any history of abdominal surgeries. He has been taking oxycodone 10 mg as prescribed by his doctor, with little relief in his symptoms. His last dose was at 1300 today. He denies any dysuria or hematuria. He reports has not had a bowel movement in the last 3 days. He does report passing flatus. He states that he took Colace yesterday and normally that helps him move his bowels, but he is still been unable to do so. ROS: as above PHYSICAL EXAM: Constitutional: Patient appears in no acute distress. HENT: Head: Normocephalic and atraumatic. Eyes: EOMI, PERRL Mouth/Throat: Mucous membranes moist. Neck: Trachea midline. Neck supple. Cardiovascular: RRR, No murmurs, rubs or gallops. Intact distal pulses. Pulmonary/Chest: No respiratory distress. Breath sounds clear and equal bilaterally. No wheezes or rales. Abdominal: Abdomen soft, no rebound or guarding. Diffuse tenderness to palpation. Musculoskeletal: No edema, tenderness or deformity noted. Skin: Warm and dry. No rash, erythema, pallor or cyanosis Psychiatric: Appropriate mood and affect for situation. Neurological: Alert and keenly responsive. CN II-XII grossly intact, moving all extremities equally and fully. MDM: - Vitals signs showed hypertension and tachycardia - History obtained via patient. History as above. - Chronic conditions affecting care: HTN; HLD; cancer of lower third of esophagus; CKD - Differential diagnoses include, but are not limited to: Pancreatitis; bowel obstruction; cholecystitis; ACS; dehydration; electrolyte abnormality - Order placed for continuous cardiac monitoring. At this time, monitor showed rate of 64 bpm with normal sinus rhythm, per my interpretation. - External medical records reviewed. Radiation oncology note dated 07/26/2025 was reviewed. Patient was referred to radiation oncology as he was advised against chemotherapy or surgical resection and recommended consideration of radiation therapy alone. PET scan was pending at time of visit. - EKG image interpreted by myself showed normal sinus rhythm. Rate 72 bpm. QT 388. No acute ischemic changes. - Laboratory workup interpreted by myself showed normal WBC; normal PT/INR; stable electrolytes; normal AST/ALT; normal lipase - Patient initially given 4 mg IV morphine, 4 mg IV zofran and 1L NS in ER. On reassessment, still complaining of significant abdominal pain. Given 0.5 mg IV dilaudid. - CT abdomen/pelvis with IV contrast negative for acute pathology. Noted to have an interval increase in hepatic metastases with necrotic gastrohepatic regional lymph node metastases. - Patient has had poor oral intake at home and uncontrolled pain at home. Will admit to hospitalist service for pain control and heme Brandon consultation in the morning. - Discussion was had with disease case manager rn about patient's case and need for admission - Hospitalist consulted for admission - Patient admitted to [facility] hospitalist service for further evaluation and management. 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) Esophageal mass Abnormal CT scan, esophagus CKD (chronic kidney disease) stage 3, GFR 30-59 ml/min Hypertension Myelopathy concurrent with and due to spinal stenosis of cervical region Carpal tunnel syndrome, left Hyperlipidemia GERD (gastroesophageal reflux disease) History of SCC (squamous cell carcinoma) of skin (Acute) History of basal cell carcinoma (Acute) Hypertension (Chronic) Medical History Prediabetes History of Mohs micrographic surgery for skin cancer Hx of colonic polyps Rosacea Hx of squamous cell carcinoma Hx of basal cell carcinoma GERD (gastroesophageal reflux disease) Hyperlipidemia Surgical History (Updated 07/26/25 @ 08:11 by Fadumo Huddleston RN) Hx of neck surgery S/P epidural steroid injection lumbar History of colonoscopy S/P inguinal hernia repair right S/P carpal tunnel release left History of repair of rotator cuff (~2018) right Family History (Updated 07/26/25 @ 08:18 by Fadumo Huddleston RN) Father Emphysema lung Mother Hypertension Prediabetes Daughter Heart disease, Onset Age: 59 heart attack; has 2 stents Son No problems noted. Son Myocardial infarction, Onset Age: 61 from massive heart attack Brother , in helicopter crash No problems noted. Son Hypertension Sister , from lung cancer Lung cancer Sister Hypertension Other No pertinent family history Social History (Updated 07/26/25 @ 08:26 by Fadumo Huddleston RN) Smoking Status: Former smoker Tobacco Type: Smokeless Tobacco (Dip or Chew) Age Started Using Tobacco: 17; Age Quit Using Tobacco: 29; Cigarettes Per Day: 1 pack/week; Second Hand Exposure: No; Do You Dip or Chew Tobacco: Yes; Hx Alcohol Use: No Hx Substance Use: No Preferred Language: Togolese Communication Ability: Effective Visual Impairment: No Limitations Hearing Ability: Hard of Hearing Quality Internship Required: No Beliefs That Will Affect Care: None Current Living Situation: Family Current Living Situation Comment: lives with Daughter in law current occupational status: retired How many Children do You have: 5 Feels Safe at Home: Yes Childhood Exposure to Second-Hand Smoke: Yes Diet: Soft and regular Diet Comment: patient was previously on regular diet caffeine: Yes (daily coffee (16 ounce)) during the past year weight has: decreased > 10 lbs Dental Care, Regularly: Yes Physical Activity Frequency: Does not Exercise Physical Activity Frequency Comment: was using stationary bike every other day until back pains started summer Seatbelt Use: sometimes Sunscreen Use: No Gender Identity: Male Assistive Devices: None Allergies Allergies Allergy/AdvReac Type Severity Reaction Status Date / Time No Known Allergies Allergy Verified 07/26/25 08:09 Home Meds Home Medications Medication Instructions Recorded Confirmed cholecalciferol (vitamin D3) 25 25 mcg PO QAM 03/13/24 07/26/25 mcg (1,000 unit) tablet (Vitamin D3) diphenhydramine 25 1 tab PO HS PRN pain/sleep 03/13/24 07/26/25 mg-acetaminophen 500 mg tablet (Tylenol PM Extra Strength) amlodipine 10 mg tablet 10 mg PO DAILY 07/01/25 07/26/25 cyanocobalamin (vitamin B-12) 200 mcg PO Q OTHER DAY 07/26/25 Previous Rx's Medication Instructions Recorded Magic Mouthwash 300 mL mouthwash 10 ml mucous membrane ACHS Painful 07/26/25 swallowing #300 mL Results & Data (ED) Vital Signs Vital Signs - 24 hr 08/04/25 17:03 08/04/25 17:43 Temperature 36.5 C Temperature Source Temporal Artery Scan Pulse Rate 98 H Respiratory Rate 20 Respiratory Effort / Characteristics Non-Labored Spontaneous Respiratory Depth Normal Blood Pressure 143/89 H Blood Pressure Mean 107 Pulse Oximetry 97 93 Oxygen Delivery Method Room Air Room Air Sepsis Recent Fever Within 48 Hours No Sepsis New/Unexplained Change in Mental Status N/A Sepsis Action Taken by Nursing No Action Required Laboratory Data 08/04/25 17:20 08/04/25 17:20 Lab Results 08/04/25 Range/Units 17:20 WBC 7.85 (4.8-10.8) K/ul RBC 5.08 (4.70-6.10) M/uL Hgb 15.6 (14.0-18.0) g/dL Hct 43.7 (42.0-52.0) % MCV 86.0 (80.0-100.0) fL MCH 30.7 (25.0-34.0) pg MCHC 35.7 (32.0-36.0) g/dL RDW Std Deviation 41.8 (36.4-46.3) fL RDW Coeff of Freida 13.3 (11.5-14.5) % Plt Count 266 (130-400) K/uL MPV 10.0 (9.4-12.4) fL Immature Gran % (Auto) 1.0 % Neut % (Auto) 54.4 % Lymph % (Auto) 31.8 % Briscoe % (Auto) 11.8 % Eos % (Auto) 0.5 % Baso % (Auto) 0.5 % Neut # (Auto) 4.26 (1.40-6.50) K/uL Lymph # (Auto) 2.50 (1.20-3.40) K/uL Briscoe # (Auto) 0.93 H (0.11-0.59) K/uL Eos # (Auto) 0.04 (0.00-0.50) K/uL Baso # (Auto) 0.04 (0.00-0.20) K/uL Immature Gran # (Auto) 0.08 (0.01-0.20) K/uL PT 11.7 (9.0-12.0) Seconds INR 1.1 (0.9-1.1) Sodium 136 (136-145) mmol/L Potassium 4.0 (3.5-5.1) mmol/L Chloride 98 (98-107) mmol/L Carbon Dioxide 28 (21-32) mmol/L Anion Gap 10 (3-11) BUN 15 (6-23) mg/dl Creatinine 0.80 (0.6-1.4) mg/dl Est Cr Clr Drug Dosing 51.4 ml/min eGFR 84.59 BUN/Creatinine Ratio 18.8 (10-20) Glucose 104 H (70-99(Fasting)) mg/dl Lactate 1.2 (0.4-2.0) mmol/L Calcium 9.7 (8.6-10.3) mg/dl Total Bilirubin 0.5 (0.2-1.0) mg/dl AST 15 (13-39) U/L ALT 9 (7-52) U/L Alkaline Phosphatase 138 H (34-104) U/L Total Protein 6.8 (6.0-8.3) gm/dl Albumin 3.7 (3.4-5.0) gm/dl Globulin 3.1 (2.5-4.0) gm/dl Albumin/Globulin Ratio 1.2 (0.9-2) Lipase 4 L (11-82) U/L Administered Medications Discontinued Medications Hydromorphone HCl (Hydromorphone Inj 0.5 Mg/0.5 Ml Syr) 0.5 mg IV NOW STA Stop: 08/04/25 18:37 Last Admin: 08/04/25 18:43 Dose: 0.5 mg Documented By: ADOLFO Sodium Chloride (Nss) 1,000 mls @ 999 mls/hr IV .Q1H1M ONE Stop: 08/04/25 18:21 Last Infusion: 08/04/25 18:38 Dose: Infused Documented By: Admin: 08/04/25 17:27 Dose: 999 mls/hr Documented By: DEB Ioversol (Optiray 320 100ml) 90 ml IV ONCE ONE Stop: 08/04/25 18:35 Last Admin: 08/04/25 18:34 Dose: 90 ml Documented By: ANDRZEJ Morphine Sulfate (Morphine Sulfate 4 Mg/Ml 1 Ml Carp\Vial) 4 mg IV NOW STA Stop: 08/04/25 17:22 Last Admin: 08/04/25 17:27 Dose: 4 mg Documented By: DEB Ondansetron HCl (Ondansetron Inj 2 Mg/Ml 2 Ml Vial) 4 mg IV NOW STA Stop: 08/04/25 17:22 Last Admin: 08/04/25 17:27 Dose: 4 mg Documented By: DEB Imaging Data Radiologist's Impression: Abdomen/Pelvis CT 08/04/25 17:51 EXAMINATION: CT of the abdomen and pelvis performed after the administration of IV contrast TECHNIQUE: Helical CT images from the lung bases through the symphysis pubis were obtained with contrast. Coronal and sagittal reformatted images were generated at a workstation for further assessment. Dose reduction techniques were achieved by using automatic exposure control and/or adjustment of mA and/or kV according to patient size and/or use of iterative reconstruction technique. COMPARISON: 07/01/2025 HISTORY: Abdominal pain FINDINGS: A small left pleural effusion is new from prior CT. Scattered, patchy ill-defined low-density infiltrative lesions in the liver appear increased from 07/01/2025. A necrotic gastrohepatic lymph node is again seen measuring 18 mm, previously 16 mm. Scattered hepatic cysts. Adrenal glands and pancreas are unremarkable. Normal spleen. No bowel obstruction. Moderate colonic stool. Sigmoid diverticulosis without diverticulitis. No evidence for appendicitis. Normal urinary bladder. No free fluid or free air. Numerous small lytic lesions throughout the bones similar to prior. IMPRESSION: No acute finding in the abdomen or pelvis. Interval increase in hepatic metastases, as well as the necrotic gastrohepatic region lymph node metastasis. New small left pleural effusion. Electronically signed by Geovanny Moore 08-04-2025 6:54 PM Discharge Plan Visit Data Chief Complaint: Abdominal Pain Stated Complaint: ABD PAIN, STOMACH CANCER, NOT EATING ED Provider: Tawana Jurado Discharge Problem: Abdominal pain, Intractable abdominal pain, Metastatic cancer Prescriptions Prescriptions: No Action Magic Mouthwash 300 mL mouthwash 10 ml mucous membrane ACHS Qty: 300 5RF cholecalciferol (vitamin D3) [Vitamin D3] 25 mcg (1,000 unit) Tablet 25 mcg PO QAM diphenhydramine-acetaminophen [Tylenol PM Extra Strength] 25-500 mg Tablet 1 tab PO HS PRN (Reason: pain/sleep) amlodipine 10 mg tablet 10 mg PO DAILY cyanocobalamin (vitamin B-12) 200 mcg PO Q OTHER DAY Patient Comments: otc unknown dose
[2025-08-04] MEDS: ONDANSETRON INJ 2 MG/ML 2 ML VIAL IV STA (17:27)
[2025-08-04] MEDS: MoRPHine SULFATE 4 MG/ML 1 ML CARP\\VIAL IV STA (17:27)
[2025-08-04] MEDS: SODIUM CHLORIDE 0.9% 1,000 ML IV ONE ×2 (17:27→20:54)
[2025-08-04 17:37] LABS: Hematocrit (blood only) 43.7 % (42.0-52.0); Hemoglobin 15.6 g/dL (14.0-18.0); Immature Granulocytes # (auto) 0.08 K/uL (0.01-0.20); Immature Granulocytes % (auto) 1.0 %; Mean Corpuscular Hemoglobin 30.7 pg (25.0-34.0); Mean Corpuscular Volume 86.0 fL (80.0-100.0); Platelet Count 266 K/uL (130-400); RDW Standard Deviation 41.8 fL (36.4-46.3); Red Blood Count 5.08 M/uL (4.70-6.10); White Blood Count 7.85 K/ul (4.8-10.8)
[2025-08-04 17:53] LABS: Alanine Aminotransferase 9.0 U/L (7-52); Albumin Globulin Ratio 1.2 (0.9-2); Albumin Level 3.7 gm/dl (3.4-5.0); Alkaline Phosphatase 138.0 U/L (34-104); Anion Gap 10.0 (3-11); Bilirubin,Total 0.5 mg/dl (0.2-1.0); Blood Urea Nitrogen 15.0 mg/dl (6-23); Calcium 9.7 mg/dl (8.6-10.3); Carbon Dioxide 28.0 mmol/L (21-32); Chloride 98.0 mmol/L (98-107); Creatinine Clr Calc Pharmacy 51.4 ml/min; Globulin 3.1 gm/dl (2.5-4.0); Glucose 104.0 mg/dl (70-99(Fasting)); Lipase 4.0 U/L (11-82); Potassium 4.0 mmol/L (3.5-5.1); Sodium 136.0 mmol/L (136-145); Total Protein 6.8 gm/dl (6.0-8.3)
[2025-08-04 18:03] LABS: INR 1.1 (0.9-1.1); Prothrombin Time 11.7 Seconds (9.0-12.0)
[2025-08-04] MEDS: OPTIRAY 320 100ml IV ONE (18:34)
[2025-08-04] MEDS: HYDROmorphone INJ 0.5 MG/0.5 ML SYR IV STA (18:43)
--- NOTE | 2025-08-04 18:55 | CT Scan Report ---
EXAMINATION: CT of the abdomen and pelvis performed after the administration of IV contrast TECHNIQUE: Helical CT images from the lung bases through the symphysis pubis were obtained with contrast. Coronal and sagittal reformatted images were generated at a workstation for further assessment. Dose reduction techniques were achieved by using automatic exposure control and/or adjustment of mA and/or kV according to patient size and/or use of iterative reconstruction technique. COMPARISON: 07/01/2025 HISTORY: Abdominal pain FINDINGS: A small left pleural effusion is new from prior CT. Scattered, patchy ill-defined low-density infiltrative lesions in the liver appear increased from 07/01/2025. A necrotic gastrohepatic lymph node is again seen measuring 18 mm, previously 16 mm. Scattered hepatic cysts. Adrenal glands and pancreas are unremarkable. Normal spleen. No bowel obstruction. Moderate colonic stool. Sigmoid diverticulosis without diverticulitis. No evidence for appendicitis. Normal urinary bladder. No free fluid or free air. Numerous small lytic lesions throughout the bones similar to prior. IMPRESSION: No acute finding in the abdomen or pelvis. Interval increase in hepatic metastases, as well as the necrotic gastrohepatic region lymph node metastasis. New small left pleural effusion. Electronically signed by Geovanny Moore 08-04-2025 6:54 PM
[2025-08-04] MEDS ORDERED: HYDROmorphone INJ 0.5 MG/0.5 ML SYR IV PRN (19:09)
[2025-08-04] MEDS ORDERED: ACETAMINOPHEN 325 MG TAB PO PRN (19:14)
[2025-08-04] MEDS: PROMETHAZINE 6.25 MG/50.25 ML BAG IV PRN (19:51)
--- NOTE | 2025-08-04 20:18 | History & Physical Report ---
Date of Service August 04, 2025 Assessment & Plan (1) Intractable abdominal pain: Plan: Assessment and plan below following discussion of case with ED provider and reviewing patient history/pertinent normal/abnormal diagnostic test results. Abdominal pain Multifactorial Metastatic esophageal cancer with progressive disease Opioid-induced constipation Hypertensive urgency secondary to above hyperlipidemia, on statin Rx GERD, stable on regimen prediabetes, hemoglobin A1c of 5.11 April 2025 past tobacco abuse OBS Admit to MedSurg Analgesia Augmentin bowel regimen, lactulose trial Relistor if no response Hydralazine 1 dose now for hypertensive urgency [facility] Rad[facility] Oncology consultation re: metastatic esophageal cancer, follow-up visit (patient has a scheduled appointment for tomorrow a.m. as per daughter) Palliative care consultation to discuss goals of care DVT prophylaxis. Lovenox subcu Full code Patient daughter requesting updates providers. Ms. Jazmine Montoya, contact #[phone]. Text document was generated using [email or web address] voice recognition software. It may contain grammatical or spelling errors. Kindly contact undersigned for clarification of any documentation item in question. History of Present Illness Chief Complaint: Uncontrolled abdominal pain Primary Care Provider: Leandro Aldridge MD History obtained from patient, family, and records. Medical history significant for Hypertension, hyperlipidemia, mild AR, recent diagnosis of metastatic esophageal cancer, GERD, prediabetes, intention tremors, past tobacco abuse. Recent confinement last month for dysphagia and epigastric pain. Patient found to have an esophageal mass. Pathology from EGD biopsy showed poorly differentiated adenocarcinoma. Oncology recommended palliative radiation. Outpatient PET/CT requested by radiation oncologist 2 days ago showed 1. There is a large and intensely FDG avid mass lesion in the mid to distal esophagus. This is consistent with the known history of esophageal cancer. 2. There are numerous small FDG avid mediastinal lymph nodes, as well as enlarged and FDG avid gastrohepatic nodes. This is consistent with metastatic disease. 3. Multifocal hepatic metastatic disease. 4. There is multifocal osteolytic bony metastatic disease. 5. Question trace residual right basilar pneumothorax. Progressive upper abdominal discomfort over the last 2 weeks. Oxycodone not helping as much as per patient. Nausea/bilious emesis. Constipation symptoms, last bowel movement was 3 days ago which is unusual for patient. No BM despite Colace and MiraLAX Rx intake at home. No headache, no chest pain, no SOB. No fever, no chills. Poor appetite, almost 10 pound weight loss since leaving hospital last month. Patient brought to ER for evaluation. Highest SBP of 190s documented at the ER. 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 Allergies Allergy/AdvReac Type Severity Reaction Status Date / Time No Known Allergies Allergy Verified 07/26/25 08:09 Home Medications Medication Instructions Recorded Confirmed Type cholecalciferol (vitamin D3) 25 25 mcg PO QAM 03/13/24 08/04/25 History mcg (1,000 unit) tablet (Vitamin D3) diphenhydramine 25 1 tab PO HS PRN pain/sleep 03/13/24 08/04/25 History mg-acetaminophen 500 mg tablet (Tylenol PM Extra Strength) cyanocobalamin (vitamin B-12) 100 100 mcg PO QAM 08/04/25 08/04/25 History mcg tablet (Vitamin B-12) docusate sodium 100 mg capsule 100 mg PO AMHS 08/04/25 08/04/25 History famotidine 20 mg tablet 20 mg PO AMHS 08/04/25 08/04/25 History oxycodone 10 mg tablet 10 mg PO Q6 PRN pain,severe 08/04/25 08/04/25 History pantoprazole 40 mg tablet,delayed 40 mg PO AMHS 08/04/25 08/04/25 History release sucralfate 1 gram tablet 1 g PO ACHS 08/04/25 08/04/25 History Past Med/Surg History Problem List (Updated 08/04/25 @ 19:24 by Tawana Jurado MD) Metastatic cancer (Acute) Intractable abdominal pain (Acute) Abdominal pain (Acute) Primary carcinoma of lower third of esophagus (Chronic 06/27/25) Esophageal mass Abnormal CT scan, esophagus CKD (chronic kidney disease) stage 3, GFR 30-59 ml/min Hypertension Myelopathy concurrent with and due to spinal stenosis of cervical region Carpal tunnel syndrome, left Hyperlipidemia GERD (gastroesophageal reflux disease) History of SCC (squamous cell carcinoma) of skin (Acute) History of basal cell carcinoma (Acute) Hypertension (Chronic) Medical History Prediabetes History of Mohs micrographic surgery for skin cancer Hx of colonic polyps Rosacea Hx of squamous cell carcinoma Hx of basal cell carcinoma GERD (gastroesophageal reflux disease) Hyperlipidemia Surgical History (Updated 07/26/25 @ 08:11 by Fadumo Huddleston, CARLA) Hx of neck surgery S/P epidural steroid injection lumbar History of colonoscopy S/P inguinal hernia repair right S/P carpal tunnel release left History of repair of rotator cuff (~2018) right Family History (Updated 07/26/25 @ 08:18 by Fadumo Huddleston, CARLA) Father Emphysema lung Mother Hypertension Prediabetes Daughter Heart disease, Onset Age: 59 heart attack; has 2 stents Son No problems noted. Son Myocardial infarction, Onset Age: 61 from massive heart attack Brother , in helicopter crash No problems noted. Son Hypertension Sister , from lung cancer Lung cancer Sister Hypertension Other No pertinent family history Social History (Updated 07/26/25 @ 08:26 by Fadumo Huddleston RN) Smoking Status: Former smoker Tobacco Type: Cigarettes and Smokeless Tobacco (Dip or Chew) Age Started Using Tobacco: 17; Age Quit Using Tobacco: 29; Cigarettes Per Day: 1 pack/week; Second Hand Exposure: No; Do You Dip or Chew Tobacco: No; Tobacco Cessation Education Requested by Patient: No Hx Alcohol Use: Yes Hx Substance Use: No Preferred Language: Guyanese Communication Ability: Effective Visual Impairment: No Limitations Hearing Ability: Hard of Hearing Head Rose Grower Required: No Beliefs That Will Affect Care: None Current Living Situation: Alone Current Living Situation Comment: lives with Daughter in law current occupational status: retired How many Children do You have: 5 Other Information That Helps Us Care for You: No Feels Safe at Home: Yes Safety Concerns: Feels Safe At This Time Childhood Exposure to Second-Hand Smoke: Yes Diet: Soft and regular Diet Comment: patient was previously on regular diet caffeine: Yes (daily coffee (16 ounce)) during the past year weight has: decreased > 10 lbs Dental Care, Regularly: Yes Physical Activity Frequency: Does not Exercise Physical Activity Frequency Comment: was using stationary bike every other day until back pains started summer Seatbelt Use: sometimes Sunscreen Use: No Gender Identity: Male Assistive Devices: Denture - Upper and Glasses Review of Systems Review of Systems: As per HPI, all other systems reviewed and negative Physical Exam Physical Exam: GENERAL: Pleasant, slightly uncomfortable, no respiratory distress SKIN: Normal color, warm HEENT: Bespectacled, pink palpebral conjunctivae, no ptosis, dry buccal mucosa NECK : Supple, no tenderness CHEST : CTA, no tenderness HEART : RRR, no obvious murmurs ABDOMEN: Some distention, epigastric tenderness EXTREMITIES : No LE swelling/tenderness, palpable pulses, no other conspicuous deformities noted NEUROLOGIC : Coherent, no facial asymmetry, no other gross focality Results & Data Results & Data Vital Signs (Past 12 Hours) Vital Signs Temp Pulse Resp BP Pulse Ox O2 Del Method 08/04/25 17:43 93 Room Air 08/04/25 17:03 36.5 C 98 H 20 143/89 H 97 Room Air Laboratory Results Laboratory Results WBC 7.85 K/ul (4.8-10.8) 08/04/25 17:20 RBC 5.08 M/uL (4.70-6.10) 08/04/25 17:20 Hgb 15.6 g/dL (14.0-18.0) 08/04/25 17:20 Hct 43.7 % (42.0-52.0) 08/04/25 17:20 MCV 86.0 fL (80.0-100.0) 08/04/25 17:20 MCH 30.7 pg (25.0-34.0) 08/04/25 17:20 MCHC 35.7 g/dL (32.0-36.0) 08/04/25 17:20 RDW Std Deviation 41.8 fL (36.4-46.3) 08/04/25 17:20 RDW Coeff of Freida 13.3 % (11.5-14.5) 08/04/25 17:20 Plt Count 266 K/uL (130-400) 08/04/25 17:20 MPV 10.0 fL (9.4-12.4) 08/04/25 17:20 Immature Gran % (Auto) 1.0 % 08/04/25 17:20 Neut % (Auto) 54.4 % 08/04/25 17:20 Lymph % (Auto) 31.8 % 08/04/25 17:20 [place] % (Auto) 11.8 % 08/04/25 17:20 Eos % (Auto) 0.5 % 08/04/25 17:20 Baso % (Auto) 0.5 % 08/04/25 17:20 Neut # (Auto) 4.26 K/uL (1.40-6.50) 08/04/25 17:20 Lymph # (Auto) 2.50 K/uL (1.20-3.40) 08/04/25 17:20 [place] # (Auto) 0.93 K/uL (0.11-0.59) H 08/04/25 17:20 Eos # (Auto) 0.04 K/uL (0.00-0.50) 08/04/25 17:20 Baso # (Auto) 0.04 K/uL (0.00-0.20) 08/04/25 17:20 Immature Gran # (Auto) 0.08 K/uL (0.01-0.20) 08/04/25 17:20 PT 11.7 Seconds (9.0-12.0) 08/04/25 17:20 INR 1.1 (0.9-1.1) 08/04/25 17:20 Sodium 136 mmol/L (136-145) 08/04/25 17:20 Potassium 4.0 mmol/L (3.5-5.1) 08/04/25 17:20 Chloride 98 mmol/L (98-107) 08/04/25 17:20 Carbon Dioxide 28 mmol/L (21-32) 08/04/25 17:20 Anion Gap 10 (3-11) 08/04/25 17:20 BUN 15 mg/dl (6-23) 08/04/25 17:20 Creatinine 0.80 mg/dl (0.6-1.4) 08/04/25 17:20 Est Cr Clr Drug Dosing 51.4 ml/min 08/04/25 17:20 eGFR 84.59 08/04/25 17:20 BUN/Creatinine Ratio 18.8 (10-20) 08/04/25 17:20 Glucose 104 mg/dl (70-99(Fasting)) H 08/04/25 17:20 Lactate 1.2 mmol/L (0.4-2.0) 08/04/25 17:20 Calcium 9.7 mg/dl (8.6-10.3) 08/04/25 17:20 Total Bilirubin 0.5 mg/dl (0.2-1.0) 08/04/25 17:20 AST 15 U/L (13-39) 08/04/25 17:20 ALT 9 U/L (7-52) 08/04/25 17:20 Alkaline Phosphatase 138 U/L (34-104) H 08/04/25 17:20 Total Protein 6.8 gm/dl (6.0-8.3) 08/04/25 17:20 Albumin 3.7 gm/dl (3.4-5.0) 08/04/25 17:20 Globulin 3.1 gm/dl (2.5-4.0) 08/04/25 17:20 Albumin/Globulin Ratio 1.2 (0.9-2) 08/04/25 17:20 Lipase 4 U/L (11-82) L 08/04/25 17:20 Impressions Abdomen/Pelvis CT 08/04/25 17:51 EXAMINATION: CT of the abdomen and pelvis performed after the administration of IV contrast TECHNIQUE: Helical CT images from the lung bases through the symphysis pubis were obtained with contrast. Coronal and sagittal reformatted images were generated at a workstation for further assessment. Dose reduction techniques were achieved by using automatic exposure control and/or adjustment of mA and/or kV according to patient size and/or use of iterative reconstruction technique. COMPARISON: 07/01/2025 HISTORY: Abdominal pain FINDINGS: A small left pleural effusion is new from prior CT. Scattered, patchy ill-defined low-density infiltrative lesions in the liver appear increased from 07/01/2025. A necrotic gastrohepatic lymph node is again seen measuring 18 mm, previously 16 mm. Scattered hepatic cysts. Adrenal glands and pancreas are unremarkable. Normal spleen. No bowel obstruction. Moderate colonic stool. Sigmoid diverticulosis without diverticulitis. No evidence for appendicitis. Normal urinary bladder. No free fluid or free air. Numerous small lytic lesions throughout the bones similar to prior. IMPRESSION: No acute finding in the abdomen or pelvis. Interval increase in hepatic metastases, as well as the necrotic gastrohepatic region lymph node metastasis. New small left pleural effusion. Electronically signed by Geovanny Moore 08-04-2025 6:[address] chest: 1. No pneumothorax is identified. 2. There multiple left-sided rib fractures. The 8th and possibly 9th rib fractures appear acute or non healed. The remainder are chronic. 3. Lytic lesion in the involving the left 7th rib, possibly neoplastic. Correlate with recent PET-CT which is not currently available. 4. There is 1.5 cm circumferential wall thickening involving the mid to lower esophagus, similar to previous. Correlate with clinical history. Possible esophageal neoplasm. 5. There are 2 1 cm dense structures in the mid to lower esophagus. Likely recently ingested medication tablets. Diagnostic Findings EKG as per my interpretation :Rate 70, LAD, LAFB, incomplete RBBB, T wave abnormalities septal leads
[2025-08-04] MEDS: ACETAMINOPHEN 1,000 MG/100 ML VIAL IV STA (20:37)
[2025-08-04] MEDS: FAMOTIDINE 20 MG TAB PO SCH (20:51)
[2025-08-04] MEDS: MELATONIN 3 MG TAB PO PRN (20:51)
[2025-08-04] MEDS: DOCUSATE SODIUM/SENNA 50/8.6MG TAB PO SCH (20:51)
[2025-08-04] MEDS: METOCLOPRAMIDE HCL INJ 5 MG/ML 2 ML VIAL IV ONE (21:25)
[2025-08-04] MEDS: SUCRALFATE 1 GM TAB PO SCH (21:25)
[2025-08-04] MEDS: LACTULOSE SYRUP 20 GM/30 ML UDC PO ONE (21:26)
[2025-08-05] MEDS: MoRPHine SULFATE 4 MG/ML 1 ML CARP\\VIAL IV PRN (00:04)
[2025-08-05] MEDS: METHYLNALTREXONE BROMIDE 12 MG/0.6 ML VIAL SQ STA (01:00)
--- NOTE | 2025-08-05 01:09 | CT Scan Report ---
Exam(s): CT CHEST Without Contrast EXAM: CT Chest Without Intravenous Contrast CLINICAL HISTORY: Reason for exam: Possible pneumothorax on outpatient pet ct. TECHNIQUE: Axial computed tomography images of the chest without intravenous contrast. CTDI is 10.26 mGy and DLP is 372.37 mGy-cm. Automated exposure control was utilized for the study. A dose lowering technique was utilized adhering to the principles of ALARA. COMPARISON: CT chest from 07/01/2025 FINDINGS: Lungs: Trace amount of scattered subsegmental atelectasis in both lung bases. No acute appearing infiltrate or consolidation is seen. Pleural space: Unremarkable. No significant effusion. No pneumothorax is identified. Heart: The heart is nonenlarged. There is severe coronary calcification. No significant pericardial effusion. Mediastinum: There is 1.5 cm circumferential wall thickening involving the mid to lower esophagus, similar to previous. There are 2 1 cm dense structures in the mid to lower esophagus. Bones/joints: There multiple left-sided rib fractures. The 8th and possibly 9th rib fractures appear acute or non healed. The remainder are chronic. Lytic lesion in the involving the left 7th rib, possibly neoplastic. Mild degenerative changes throughout the spine. No spinal fracture is seen. Soft tissues: Unremarkable. Vasculature: The thoracic aorta is mildly calcified but nondilated. This is a noncontrast study. Lymph nodes: Unremarkable. No enlarged lymph nodes. IMPRESSION: 1. No pneumothorax is identified. 2. There multiple left-sided rib fractures. The 8th and possibly 9th rib fractures appear acute or non healed. The remainder are chronic. 3. Lytic lesion in the involving the left 7th rib, possibly neoplastic. Correlate with recent PET-CT which is not currently available. 4. There is 1.5 cm circumferential wall thickening involving the mid to lower esophagus, similar to previous. Correlate with clinical history. Possible esophageal neoplasm. 5. There are 2 1 cm dense structures in the mid to lower esophagus. Likely recently ingested medication tablets. Electronically signed by: Mateo Brooke MD 08/05/25 01:07 AM
[2025-08-05] MEDS: PROMETHAZINE 6.25 MG/50.25 ML BAG IV STA (02:26)
[2025-08-05] MEDS: KETOROLAC TROMETHAMINE 15 MG/ML VIAL IV ONE (02:31)
[2025-08-05 08:20] LABS: Hematocrit (blood only) 40.5 % (42.0-52.0); Hemoglobin 14.1 g/dL (14.0-18.0); Immature Granulocytes # (auto) 0.05 K/uL (0.01-0.20); Immature Granulocytes % (auto) 0.6 %; Mean Corpuscular Hemoglobin 30.6 pg (25.0-34.0); Mean Corpuscular Volume 87.9 fL (80.0-100.0); Platelet Count 261 K/uL (130-400); RDW Standard Deviation 43.9 fL (36.4-46.3); Red Blood Count 4.61 M/uL (4.70-6.10); White Blood Count 7.76 K/ul (4.8-10.8)
[2025-08-05 08:36] LABS: Anion Gap 10.0 (3-11); Blood Urea Nitrogen 13.0 mg/dl (6-23); Calcium 9.2 mg/dl (8.6-10.3); Carbon Dioxide 26.0 mmol/L (21-32); Chloride 102.0 mmol/L (98-107); Creatinine Clr Calc Pharmacy 55.2 ml/min; Glucose 99.0 mg/dl (70-99(Fasting)); Potassium 4.0 mmol/L (3.5-5.1); Sodium 138.0 mmol/L (136-145)
--- NOTE | 2025-08-05 08:52 | Radiation OncologyConsultation ---
Date of Consultation August 05, 2025 Assessment & Plan (1) Primary carcinoma of lower third of esophagus: Plan ATTENDING ADDENDUM Assessment: Mr. Montoya is an 89-year-old gentleman previously seen in consultation in the outpatient setting for esophageal cancer. The patient has been previously seen by medical oncology who advised against any systemic therapy for the patient due to his age. When the patient was seen in the outpatient setting, the recommendation was for completion of the staging workup including a PET/CT scan. The patient did have the PET scan completed last week which does show metastatic disease to bone and liver. The patient has been admi tted to the hospital due to significant abdominal pain. The patient continues to have some abdominal pain and is currently receiving pain medications. We have been asked to evaluate the patient to consider the role of radiation therapy. Treatment Options: 1. Palliative radiation therapy. 2. Best supportive care. Recommendation: I did explain to the patient and his son that palliative radiation therapy could be possible. I did explain to them that we would most likely target the esophagus due to dysphagia. I did have a conversation with the patient and his son and then later on the hospitalist to explain that the patient's epigastric discomfort is unlikely related his metastatic disease based on the most recent PET scan and I explained to everyone that I was not confident that palliative radiation therapy would potentially improve that symptom specifically. Plan: 1. At this point, the patient is not ready to consider radiation therapy. Radiation therapy can be reconsidered if desired by the patient and family. 2. The patient will meet with palliative care. 3. Continue management as per primary medical team. 4. Please contact us if the patient would like to further discuss radiation therapy. History of Present Illness Reason for Consultation: Esophageal carcinoma Requesting Physician: Kosta Olivier DO Attending Physician: Kosta Olivier DO History of Present Illness Remote history of smoking. 12 pack years and quit at age 29. Chewing tobacco started at 30 years old and continues. 06/28/2025. Emergency room evaluation and admission due to abdominal pain, epigastric pain and elevated troponin. Pain started 4 weeks prior and has progressively become worse. He has been taking omeprazole twice a day. Also takes Tylenol and oxycodone. He has a intense burning sensation. Aspirin has been stopped. He has lost 20 pounds. He has generalized weakness. 07/01/2025. CT of the abdomen and pelvis. 1. Small right basilar pneumothorax. No right-sided rib fractures are identified. 2. Healing subacute left rib fractures. 3. No bowel obstruction or bowel wall thickening. 4. Nonspecific centrally necrotic gastrohepatic lymph nodes may be amendable to endoscopic biopsy. 5. Mild nonspecific proximal to mid gastric wall thickening with partial distention. 07/01/2025. Chest CT. 1. Small right pneumothorax. 2. Multiple subacute left-sided rib fractures. No pneumothorax seen on the left. 3. Thickening of the esophagus suspicious for esophageal cancer. There are a few mildly enlarged lymph nodes at the visualized upper abdomen suspicious for metastatic disease. 07/02/2025. Upper GI endoscopy (Dr. Padilla). 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 Likely malignant esophageal tumor was found in the lower third of esophagus. Biopsies taken. Hiatal hernia. Normal duodenum. Pathology report reveals: Esophagus, mass, biopsy: Poorly differentiated adenocarcinoma. FISH analysis negative. 07/02/2025 pulmonary consultation (Dr. Montgomery). Small pneumothorax. Asymptomatic. Probably sealed off. Not likely to be associated with esophageal issues. No open further investigation needed. 07/03/2025. Hospital discharge. 07/03/2025. Gastroenterology follow-up. Biopsies at that time were pending. Continue Protonix twice daily. Continue famotidine 40 mg twice daily. 07/03/2025. Medical oncology consultation (Dr. Dalal). Findings are suspicious for an esophageal carcinoma. Treatment options were discussed. Neoadjuvant chemotherapy followed by surgery. Definitive concurrent radiation and chemotherapy. Or palliative care. Given his age and comorbidities would not recommend chemotherapy. Recommend consideration of palliative radiation therapy. Patient be seen as an outpatient. 07/11/2025. Our office called the patient's daughter. The request the patient wanted her to be given instructions. Patient's daughter wished to hold on radiation oncology appointment until after he saw primary care physician. 07/17/2025. Primary care follow-up. Hospitalization information reviewed. Patient has esophageal carcinoma. He is having difficulty with eating and weight loss. He is eating a soft diet. He is taking Protonix and famotidine twice daily. He is taking oxycodone up to 2 tablets a day. Does have issues with constipation. Options of therapy discussed. It was felt the patient should consider radiation therapy for palliation and to help shrink the tumor. 07/26/2025. Radiation oncology consultation. Complete staging workup including PET/CT scan. Patient will return with follow-up and same-day CT simulation. 08/02/2025. PET/CT. 1. There is a large and intensely FDG avid mass lesion in the mid to distal esophagus. This is consistent with the known history of esophageal cancer. 2. There are numerous small FDG avid mediastinal lymph nodes, as well as enlarged and FDG avid gastrohepatic nodes. This is consistent with metastatic disease. 3. Multifocal hepatic metastatic disease. 4. There is multifocal osteolytic bony metastatic disease. 5. Question trace residual right basilar pneumothorax. 08/04/2025. Emergency room evaluation and admission due to intractable abdominal pain. 08/04/2025. CT of the abdomen and pelvis. No acute finding in the abdomen or pelvis. Interval increase in hepatic metastases, as well as the necrotic gastrohepatic region lymph node metastasis. New small left pleural effusion. 08/04/2025. CT of the chest. 1. No pneumothorax is identified. 2. There multiple left-sided rib fractures. The 8th and possibly 9th rib fractures appear acute or non healed. The remainder are chronic. 3. Lytic lesion in the involving the left 7th rib, possibly neoplastic. Correlate with recent PET-CT which is not currently available. 4. There is 1.5 cm circumferential wall thickening involving the mid to lower esophagus, similar to previous. Correlate with clinical history. Possible esophageal neoplasm. 5. There are 2 1 cm dense structures in the mid to lower esophagus. Likely recently ingested medication tablets. 08/05/2025. Radiation oncology consultation. Patient had been seen previously in radiation oncology 07/26/2025. Discussion of palliative radiation therapy for the esophageal tumor. CT simulation had been planned for 08/05/2025. He is brought to the emergency room with intractable abdominal pain last evening. Today he has a pain level of 9 out of 10. He did receive morphine this morning. His appetite is very poor. He has been eating very little. He had nausea and vomiting last evening. Today he has a mild headache behind the right eye. This has not affected his respiratory status. He has had constipation. He did have 2 bowel movements last evening. He has no difficulty with urination. Allergies Allergy/AdvReac Type Severity Reaction Status Date / Time No Known Allergies Allergy Verified 07/26/25 08:09 Home Medications Medication Instructions Recorded Confirmed Type cholecalciferol (vitamin D3) 25 25 mcg PO QAM 03/13/24 08/04/25 History mcg (1,000 unit) tablet (Vitamin D3) diphenhydramine 25 1 tab PO HS PRN pain/sleep 03/13/24 08/04/25 History mg-acetaminophen 500 mg tablet (Tylenol PM Extra Strength) cyanocobalamin (vitamin B-12) 100 100 mcg PO QAM 08/04/25 08/04/25 History mcg tablet (Vitamin B-12) docusate sodium 100 mg capsule 100 mg PO AMHS 08/04/25 08/04/25 History famotidine 20 mg tablet 20 mg PO AMHS 08/04/25 08/04/25 History oxycodone 10 mg tablet 10 mg PO Q6 PRN pain,severe 08/04/25 08/04/25 History pantoprazole 40 mg tablet,delayed 40 mg PO AMHS 08/04/25 08/04/25 History release sucralfate 1 gram tablet 1 g PO ACHS 08/04/25 08/04/25 History Patient History Medical History Prediabetes History of Mohs micrographic surgery for skin cancer Hx of colonic polyps Rosacea Hx of squamous cell carcinoma Hx of basal cell carcinoma GERD (gastroesophageal reflux disease) Hyperlipidemia Surgical History (Updated 07/26/25 @ 08:11 by Fadumo Huddleston, RN) Hx of neck surgery S/P epidural steroid injection lumbar History of colonoscopy S/P inguinal hernia repair right S/P carpal tunnel release left History of repair of rotator cuff (~2017) right Family History (Updated 07/26/25 @ 08:18 by Fadumo Huddleston, CARLA) Father Emphysema lung Mother Hypertension Prediabetes Daughter Heart disease, Onset Age: 59 heart attack; has 2 stents Son No problems noted. Son Myocardial infarction, Onset Age: 61 from massive heart attack Brother , in helicopter crash No problems noted. Son Hypertension Sister , from lung cancer Lung cancer Sister Hypertension Other No pertinent family history Social History (Updated 07/26/25 @ 08:26 by Fadumo Huddleston, CARLA) Smoking Status: Former smoker Tobacco Type: Cigarettes and Smokeless Tobacco (Dip or Chew) Age Started Using Tobacco: 17; Age Quit Using Tobacco: 29; Cigarettes Per Day: 1 pack/week; Second Hand Exposure: No; Do You Dip or Chew Tobacco: No; Tobacco Cessation Education Requested by Patient: No Hx Alcohol Use: Yes Hx Substance Use: No Preferred Language: Albanian Communication Ability: Effective Visual Impairment: No Limitations Hearing Ability: Hard of Hearing 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 Beliefs That Will Affect Care: None Current Living Situation: Alone Current Living Situation Comment: lives with Daughter in law current occupational status: retired How many Children do You have: 5 Other Information That Helps Us Care for You: No Feels Safe at Home: Yes Safety Concerns: Feels Safe At This Time Childhood Exposure to Second-Hand Smoke: Yes Diet: Soft and regular Diet Comment: patient was previously on regular diet caffeine: Yes (daily coffee (16 ounce)) during the past year weight has: decreased > 10 lbs Dental Care, Regularly: Yes Physical Activity Frequency: Does not Exercise Physical Activity Frequency Comment: was using stationary bike every other day until back pains started summer Seatbelt Use: sometimes Sunscreen Use: No Gender Identity: Male Assistive Devices: Denture - Upper, Glasses and Hearing Aid - Bilateral Review of Systems Review of Systems: 13 point review of systems completed and is negative other than what was mentioned in the history of present illness. Physical Exam Constitutional: WD/WN, vitals as above + frail appearing Eyes: PERRL, conjunctivae normal, anicteric sclerae ENMT: Ears: no hearing impairment Neck: trachea midline, no thyromegaly Respiratory: normal respiratory effort, lungs clear to auscultation Cardiovascular: RRR, no murmur, no edema Gastrointestinal (Abdomen): Inspection/Auscultation: abdomen not distended Percussion/Palpation: + abdomen tender (Mid abdomen/epigastric region.) Skin: no rashes, warm and dry Psychiatric: A+Ox3, euthymic affect Results (Rad Onc) Pathology Results: were reviewed and pertinent findings noted in HPI Imaging Studies: were reviewed and pertinent findings noted in HPI Time Spent Midlevel I spent [15] minutes in preparation for this follow up evaluation including reviewing all the clinical records, reviewing laboratory studies, pathology reports and imaging results. I spent [25] minutes with direct face to face interaction with the patient and/or family including performing a physical exam and answering all questions. I spent [15] minutes documenting this patient's visit. Attending I spent 10 minutes in preparation for this follow up evaluation including reviewing all the clinical records, reviewing laboratory studies, pathology reports and imaging results. I spent 15 minutes with direct face to face interaction with the patient and/or family including performing a physical exam and answering all questions. I spent 10 minutes documenting this patient's visit. I spent 5 speaking with the following providers regarding this patient's care: Dr. Olivier. PG Care Time/CCT Total # of Minutes Spent Total Time Spent with Patient: Total time spent is greater than 50% in coordination of care (as documented) at patient's floor/unit and/or counseling patient: Coding [place] [address] INT INP/OBS CARE 3/75MIN Patient Type Established History Problem Focused Exam Problem Focused Medical Decision Making Moderate Complexity Diagnoses Primary carcinoma of lower third of esophagus C15.5
[2025-08-05] MEDS: CYANOCOBALAMIN (B-12) 100 MCG TABLET PO SCH (09:46)
[2025-08-05] MEDS: ENOXAPARIN INJ 30 MG/0.3 ML SYR SQ SCH (09:51)
--- NOTE | 2025-08-05 09:53 | Electrocardiogram Report ---
Test Reason : Blood Pressure : */* mmHG Vent. Rate : 72 BPM Atrial Rate : 72 BPM P-R Int : 180 ms QRS Dur : 118 ms QT Int : 388 ms P-R-T Axes : 55 -26 32 degrees QTcB Int : 424 ms Poor data quality, interpretation may be adversely affected Normal sinus rhythm Incomplete right bundle branch block Poor R wave progression, consider anterior IL vs. lead placement vs. LVH Abnormal ECG When compared with ECG of 02-Jul-2025 05:15, CA interval has decreased Anterior infarct is now Present ST elevation now present in Anterior leads Confirmed by Chester Cline ([id number]) on 08/05/2025 9:52:56 AM Referred By: REFERRED SELF Confirmed By: Chester Cline
--- NOTE | 2025-08-05 11:16 | Palliative Care Consultation ---
Date of Consultation August 05, 2025 Assessment & Plan (1) Intractable abdominal pain: patient has ongoing severe sharp gastric/upper abd pain that is worsened with movement and only modestly improved with current medications. He shared that the pain "comes out of nowhere" at time and is very sharp and very severe, "unbearable". Pain is interfering with his ADLs including eating. Discussed palliative radiation expectations and need to offer better pain management through treatments. Discussed concern for oral medications given his N/V and pain with swallowing and offered TD fentanyl as an option for opiate pain management with more consistent coverage of pain while not relyin on his ability to take pills. Patient is agreeable. Given pt's opiate use since admission he has utilized more than 70 OMEs over the previous 12hr period. Reducing dose for cross tolerance, I will order a 25ucg/hr TD fentanyl patch (60 OMEs/day) and monitor his PRN opiate requirements for future adjustments. Last 12h hour OMEs: 72.8 IV morphine 8 mg = 24 OME OxyIR 10 mg x2 = 30 OME IV dilaudid 1.5mg = 18.8 OME ADDED TD fentanyl 25ucg/hr patch q72hr JANICE Continue Dilaudid PRN for BTP (2) Nausea & vomiting: Continue zofran/phenergan as needed for nausea. (3) Poor appetite: (4) Counseling regarding advanced directives and goals of care: Spent 30 minutes discussing pt values and GOC with pt and his family. Pt's son shared that he has an advanced directive indicating DNR/DNI, I encouragd that they supply hospital with a coy. Patient reinforced his desire for no aggressive resuscitative efforts and requests change to DNR/DNI status. Pt shared understanding that his cancer is aggressive and widespread and not curable. His daughter shared that they plan to pursue palliative radiation and patient shared that his pain is "unbearble" and constant and if there is a chance that radiation will offer any relief he would pursue it. He shared that being at home with family is of highest importance to him and his daughter shared that he would likely move in with her on discharge. He and his son discussed that the radiation plan is for multiple fractions of short duration (15 minutes) and that although the plan is to begin with mapping while inpt, he would like to spend what time he has left out of the hospital. Orders placed for DNR/DNI per pt request. (5) Palliative care by specialist: Met with pt and his adult children at bedside. Introduced Palliative Medicine and explained our role in advanced care planning, symptom management and navigation through the progression of life limiting disease. Patient and/or family were receptive to palliative services for goals of care discussions. Reviewed we are different from hospice, a home health nurse visiting service. Plan as above History of Present Illness Reason for Consultation: goals of care/pain Requesting Physician: Kosta Olivier DO Attending Physician: Kosta Olivier DO History of Present Illness Mr Montoya is a 89y gentleman with PMHx including Hypertension, hyperlipidemia, mild AR, recent diagnosis of metastatic esophageal cancer, GERD, prediabetes, intention tremors, past tobacco abuse. Recent confinement last month for dysphagia and epigastric pain when he was found to have an esophageal mass. Pathology from EGD biopsy showed poorly differentiated adenocarcinoma. Oncology recommended palliative radiation. He presented to ED on 08/04/25 after 2 weeks of progressive upper abdominal pain, N/V, 10# unintentional weight loss (over 1 month), and constipation refractory to colace and miralax (last BM 07/31) and has been admitted formedical management. 10/02/2024. PET/CT. 1. There is a large and intensely FDG avid mass lesion in the mid to distal esophagus. This is consistent with the known history of esophageal cancer. 2. There are numerous small FDG avid mediastinal lymph nodes, as well as enlarged and FDG avid gastrohepatic nodes. This is consistent with metastatic disease. 3. Multifocal hepatic metastatic disease. 4. There is multifocal osteolytic bony metastatic disease. 5. Question trace residual right basilar pneumothorax. Allergies Allergy/AdvReac Type Severity Reaction Status Date / Time No Known Allergies Allergy Verified 07/26/25 08:09 Home Medications Medication Instructions Recorded Confirmed Type cholecalciferol (vitamin D3) 25 25 mcg PO QAM 03/13/24 08/04/25 History mcg (1,000 unit) tablet (Vitamin D3) diphenhydramine 25 1 tab PO HS PRN pain/sleep 03/13/24 08/04/25 History mg-acetaminophen 500 mg tablet (Tylenol PM Extra Strength) cyanocobalamin (vitamin B-12) 100 100 mcg PO QAM 08/04/25 08/04/25 History mcg tablet (Vitamin B-12) docusate sodium 100 mg capsule 100 mg PO AMHS 08/04/25 08/04/25 History famotidine 20 mg tablet 20 mg PO AMHS 08/04/25 08/04/25 History oxycodone 10 mg tablet 10 mg PO Q6 PRN pain,severe 08/04/25 08/04/25 History pantoprazole 40 mg tablet,delayed 40 mg PO AMHS 08/04/25 08/04/25 History release sucralfate 1 gram tablet 1 g PO ACHS 08/04/25 08/04/25 History Patient History Medical History Prediabetes History of Mohs micrographic surgery for skin cancer Hx of colonic polyps Rosacea Hx of squamous cell carcinoma Hx of basal cell carcinoma GERD (gastroesophageal reflux disease) Hyperlipidemia Surgical History (Updated 07/26/25 @ 08:11 by Fadumo Huddleston, RN) Hx of neck surgery S/P epidural steroid injection lumbar History of colonoscopy S/P inguinal hernia repair right S/P carpal tunnel release left History of repair of rotator cuff (~2018) right Family History (Updated 07/26/25 @ 08:18 by Fadumo Huddleston, CARLA) Father Emphysema lung Mother Hypertension Prediabetes Daughter Heart disease, Onset Age: 59 heart attack; has 2 stents Son No problems noted. Son Myocardial infarction, Onset Age: 61 from massive heart attack Brother , in helicopter crash No problems noted. Son Hypertension Sister , from lung cancer Lung cancer Sister Hypertension Other No pertinent family history Social History (Updated 07/26/25 @ 08:26 by Fadumo Huddleston, CARLA) Smoking Status: Former smoker Tobacco Type: Cigarettes and Smokeless Tobacco (Dip or Chew) Age Started Using Tobacco: 17; Age Quit Using Tobacco: 29; Cigarettes Per Day: 1 pack/week; Second Hand Exposure: No; Do You Dip or Chew Tobacco: No; Tobacco Cessation Education Requested by Patient: No Hx Alcohol Use: Yes Hx Substance Use: No Preferred Language: Greek Communication Ability: Effective Visual Impairment: No Limitations Hearing Ability: Hard of Hearing Argon Tester Required: No Beliefs That Will Affect Care: None Current Living Situation: Alone Current Living Situation Comment: lives with Daughter in law current occupational status: retired How many Children do You have: 5 Other Information That Helps Us Care for You: No Feels Safe at Home: Yes Safety Concerns: Feels Safe At This Time Childhood Exposure to Second-Hand Smoke: Yes Diet: Soft and regular Diet Comment: patient was previously on regular diet caffeine: Yes (daily coffee (16 ounce)) during the past year weight has: decreased > 10 lbs Dental Care, Regularly: Yes Physical Activity Frequency: Does not Exercise Physical Activity Frequency Comment: was using stationary bike every other day until back pains started summer Seatbelt Use: sometimes Sunscreen Use: No Gender Identity: Male Assistive Devices: None Review of Systems Review of Systems: All systems reviewed & are unremarkable except as noted in HPI & below Physical Exam Constitutional: WD/WN, vitals as above + cachectic and + frail appearing Eyes: PERRL, conjunctivae normal, anicteric sclerae Neck: trachea midline, no thyromegaly Respiratory: normal respiratory effort, lungs clear to auscultation Cardiovascular: RRR, no murmur, no edema Gastrointestinal (Abdomen): Inspection/Auscultation: abdomen not distended Percussion/Palpation: + abdomen tender (Mid abdomen/epigastric region.) Skin: no rashes, warm and dry Psychiatric: A+Ox3, euthymic affect Results & Data Vital Signs (Past 12 Hours) Vital Signs Temp Pulse Resp BP Pulse Ox O2 Del Method 08/05/25 07:45 36.6 C 87 19 177/89 H 93 Room Air 08/05/25 07:45 Room Air 08/05/25 00:47 71 133/63 95 Room Air Laboratory Results Abnormal lab results 08/04/25 08/05/25 Range/Units 17:20 07:45 RBC 4.61 L (4.70-6.10) M/uL Hct 40.5 L (42.0-52.0) % [place] # (Auto) 0.81 H (0.11-0.59) K/uL Glucose 104 H (70-99(Fasting)) mg/dl Alkaline Phosphatase 138 H (34-104) U/L Lipase 4 L (11-82) U/L Diagnostic Findings Abdomen/Pelvis CT 08/04/25 17:51 EXAMINATION: CT of the abdomen and pelvis performed after the administration of IV contrast TECHNIQUE: Helical CT images from the lung bases through the symphysis pubis were obtained with contrast. Coronal and sagittal reformatted images were generated at a workstation for further assessment. Dose reduction techniques were achieved by using automatic exposure control and/or adjustment of mA and/or kV according to patient size and/or use of iterative reconstruction technique. COMPARISON: 07/01/2025 HISTORY: Abdominal pain FINDINGS: A small left pleural effusion is new from prior CT. Scattered, patchy ill-defined low-density infiltrative lesions in the liver appear increased from 07/01/2025. A necrotic gastrohepatic lymph node is again seen measuring 18 mm, previously 16 mm. Scattered hepatic cysts. Adrenal glands and pancreas are unremarkable. Normal spleen. No bowel obstruction. Moderate colonic stool. Sigmoid diverticulosis without diverticulitis. No evidence for appendicitis. Normal urinary bladder. No free fluid or free air. Numerous small lytic lesions throughout the bones similar to prior. IMPRESSION: No acute finding in the abdomen or pelvis. Interval increase in hepatic metastases, as well as the necrotic gastrohepatic region lymph node metastasis. New small left pleural effusion. Electronically signed by Geovanny Moore 08-04-2025 6:[address] 08/04/25 20:18 Exam(s): CT CHEST Without Contrast EXAM: CT Chest Without Intravenous Contrast CLINICAL HISTORY: Reason for exam: Possible pneumothorax on outpatient pet ct. TECHNIQUE: Axial computed tomography images of the chest without intravenous contrast. CTDI is 10.26 mGy and DLP is 372.37 mGy-cm. Automated exposure control was utilized for the study. A dose lowering technique was utilized adhering to the principles of ALARA. COMPARISON: CT chest from 07/01/2025 FINDINGS: Lungs: Trace amount of scattered subsegmental atelectasis in both lung bases. No acute appearing infiltrate or consolidation is seen. Pleural space: Unremarkable. No significant effusion. No pneumothorax is identified. Heart: The heart is nonenlarged. There is severe coronary calcification. No significant pericardial effusion. Mediastinum: There is 1.5 cm circumferential wall thickening involving the mid to lower esophagus, similar to previous. There are 2 1 cm dense structures in the mid to lower esophagus. Bones/joints: There multiple left-sided rib fractures. The 8th and possibly 9th rib fractures appear acute or non healed. The remainder are chronic. Lytic lesion in the involving the left 7th rib, possibly neoplastic. Mild degenerative changes throughout the spine. No spinal fracture is seen. Soft tissues: Unremarkable. Vasculature: The thoracic aorta is mildly calcified but nondilated. This is a noncontrast study. Lymph nodes: Unremarkable. No enlarged lymph nodes. IMPRESSION: 1. No pneumothorax is identified. 2. There multiple left-sided rib fractures. The 8th and possibly 9th rib fractures appear acute or non healed. The remainder are chronic. 3. Lytic lesion in the involving the left 7th rib, possibly neoplastic. Correlate with recent PET-CT which is not currently available. 4. There is 1.5 cm circumferential wall thickening involving the mid to lower esophagus, similar to previous. Correlate with clinical history. Possible esophageal neoplasm. 5. There are 2 1 cm dense structures in the mid to lower esophagus. Likely recently ingested medication tablets. Electronically signed by: Mateo Brooke MD 08/05/25 01:07 AM Medications Administered Current Inpatient Medications Acetaminophen (Acetaminophen 325 Mg Tab) 650 mg PO QID PRN PRN Reason: pain/fever Stop: 09/03/25 19:13 Cyanocobalamin (Cyanocobalamin (B-12) 100 Mcg Tablet) 100 mcg PO QAM [facility] Stop: 09/04/25 08:59 Last Admin: 08/05/25 09:46 Dose: 100 mcg Enoxaparin Sodium (Enoxaparin Inj 40 Mg/0.4 Ml Syr) 40 mg SQ QAM [facility] Stop: 09/05/25 08:59 Famotidine (Famotidine 20 Mg Tab) 20 mg PO AMHS [facility] Stop: 09/03/25 20:59 Last Admin: 08/05/25 09:46 Dose: 20 mg Fentanyl (Fentanyl 25 Mcg/Hr Tdsy) 1 patch TD Q3D@0900 [facility] Stop: 08/19/25 14:14 Last Admin: 08/05/25 14:26 Dose: 1 patch Hydromorphone HCl (Hydromorphone Inj 1 Mg/Ml Syringe) 1 mg IV Q6H PRN PRN Reason: Severe Pain (Scale 7, 8, 9,10) Stop: 08/19/25 10:07 Last Admin: 08/05/25 12:58 Dose: 1 mg Promethazine HCl (Phenergan) 6.25 mg in 50.25 mls @ 201 mls/hr IV Q6H PRN; Protocol PRN Reason: Nausea And Vomiting Stop: 09/03/25 19:13 Last Infusion: 08/05/25 16:53 Dose: Infused Melatonin (Melatonin 3 Mg Tab) 3 mg PO HS PRN PRN Reason: Sleep Stop: 09/03/25 20:11 Last Admin: 08/04/25 20:51 Dose: 3 mg Miscellaneous (Fentanyl Patch Remove & Waste) 1 each N/A Q3D@0859 [facility] Stop: 09/07/25 08:58 Miscellaneous (Check Fentanyl Patch Placement) 1 each N/A QS [facility] Stop: 09/04/25 15:59 Last Admin: 08/05/25 16:38 Dose: 1 each Morphine Sulfate (Morphine Sulfate 4 Mg/Ml 1 Ml Carp\\Vial) 4 mg IV Q4H PRN PRN Reason: breakthrough pain Stop: 08/18/25 20:09 Ondansetron HCl (Ondansetron Inj 2 Mg/Ml 2 Ml Vial) 4 mg IV Q4H PRN PRN Reason: Nausea Stop: 09/04/25 16:26 Pantoprazole Sodium (Pantoprazole 40 Mg Tab) 40 mg PO AMHS [facility] Stop: 09/03/25 20:59 Last Admin: 08/05/25 09:46 Dose: 40 mg Senna/Docusate Sodium (Docusate Sodium/Senna 50/8.6mg Tab) 1 tab PO BID [facility] Stop: 09/03/25 20:09 Last Admin: 08/05/25 09:46 Dose: 1 tab Sucralfate (Sucralfate 1 Gm Tab) 1 gm PO ACHS [facility] Stop: 09/03/25 20:59 Last Admin: 08/05/25 17:21 Dose: Not Given PG Care Time/CCT Total # of Minutes Spent Total Time Spent with Patient: Total time spent is greater than 50% in coordination of care (as documented) at patient's floor/unit and/or counseling patient: Advanced Care Planning 54313 Advanced Care Planning 30 [place] [address] IN/OBS CONSULT LVL 4,60M Patient Type New History Expanded Problem Focused Exam Expanded Problem Focused Medical Decision Making High Complexity Diagnoses Intractable abdominal pain R10.9 Nausea & vomiting R11.2 Poor appetite R63.0 Counseling regarding advanced directives and goals of care Z71.89 Palliative care by specialist Z51.5 Additional Codes Advanced Care Planning - 76759 Advanced Care Planning 30 Min: 32094 Advanced Care Planning 30 Min ([id number])
[2025-08-05] MEDS: HYDROmorphone INJ 1 MG/ML SYRINGE IV PRN (12:58)
--- NOTE | 2025-08-05 14:42 | Hospitalist Progress Note ---
<Statement entered by Kosta Olivier, DO - 08/05/25 15:26> Still c/o significant abd pain. etiology of his pain is likely cancer related. reviewed CT images, no other cause idetnified. labs unremarkable to explain his pain. D/w rad-onc, will consider IP palliative radiation. [facility] d/w patient and family. they would primarily like to focus on comfort. he explained that it is important for him to not be frequently hospitalized. He understands his cancer is non curable. son and daughter at bedside do as well. D/w palliative care, they will be starting a fentanyl patch Seen and examined I spent a total of 45 minutes coordinating, documenting, and providing care for this patient excluding time spent in the performance of separately billed services. This included personally reviewing all current laboratories and imaging studies, medical reconciliation, outpatient chart review and discussion with specialists Date of Service August 05, 2025 Assessment & Plan (1) Intractable abdominal pain: (2) Esophageal cancer: Plan Patient is an 89y/o M with PMHx significant for HTN, HLD, CKD stage III, chronic back pain, GERD and recently diagnosed metastatic esophageal adenocarcinoma who presented to the ED on 08/04/25 due to intractable abdominal discomfort, primarily in the epigastric region, over the last 2 weeks. Minimal, if any, relief with PRN oxycodone ASSISTANT FOOD SERVICE DIRECTOR. Also p/w constipation despite compliance with MiraLAX and Colace ASSISTANT FOOD SERVICE DIRECTOR. 08/02/2025 PET/CT: 1. There is a large and intensely FDG avid mass lesion in the mid to distal esophagus. This is consistent with the known history of esophageal cancer. 2. There are numerous small FDG avid mediastinal lymph nodes, as well as enlarged and FDG avid gastrohepatic nodes. This is consistent with metastatic disease. 3. Multifocal hepatic metastatic disease. 4. There is multifocal osteolytic bony metastatic disease. 5. Question trace residual right basilar pneumothorax. Intractable abdominal pain, primary epigastric Opioid-induced constipation Metastatic esophageal adenocarcinoma with evidence of progressive disease on admitting imaging Protein-calorie malnutrition Admitting CTAP with new small L pleural effusion, interval increase in hepatic metastases, necrotic gastrohepatic region lymph node metastasis, moderate colonic stool. Admitting chest CT with no pneumothorax, multiple L-sided rib fxs (8th and 9th appear new or nonhealed), lytic lesion involving the L 7th rib (possibly neoplastic). Given dose of Relistor overnight with at least 2-3 BMs per RN. Also received dose of lactulose. Rad/onc saw patient today, planning for possible CT simulation tomorrow for palliative radiation therapy. Appreciate palliative consult, patient started on fentanyl patch. Some improvement in pain reported this afternoon. CODE STATUS transitioned from FULL CODE to DNR/DNI per patient's wishes. Significantly poor appetite 2/2 dysphagia, odynophagia. Tolerated protein shakes, thin liquids only ASSISTANT FOOD SERVICE DIRECTOR. On clear liquid diet for now, appreciate CONTINUOUS MINER OPERATOR HELPER eval pending palliative care discussions. Hypertensive urgency Improved s/p dose of IV hydralazine, likely 2/2 above. Continue to monitor BP closely. Other chronic medical conditions: HLD - Does not appear to be on statin therapy. GERD - Stable on current regimen, continue. Prediabetes - Hgb A1c 5.7% as of April 2025. CKD stage III - Cr remains around baseline (baseline 1.4), avoid nephrotoxic agents as able. DVT Prophylaxis: SQ Lovenox Code Status: DNR/DNI PCP: Leandro Aldridge MD Disposition: DC plans uncertain at this time; discussed care with pt's son and grandson at bedside this afternoon. Patient seen in collaboration with Dr. Olivier. Please see addendum. I spent a total of 52 minutes coordinating, documenting, and providing care for this patient excluding time spent in the performance of separately billed services or time spent by another provider/QHP. This included personally reviewing all current laboratories and imaging studies, medical reconciliation, outpatient chart review and discussion with specialists. Admission and Anticipated Discharge Date Admission Date: August 04, 2025 Subjective Patient seen and examined in room N376-2 this afternoon. Resting comfortably, son and grandson at bedside. Very poor appetite. Has only been able to tolerate thin liquids as anything of more consistency is too painful to swallow and often gets "stuck." Endorses epigastric pain, some improvement since this morning. Had at least 2 BMs. Was seen by palliative care. Review of Systems Review of Systems: At least ten systems reviewed and negative, except as noted in the subjective section. Physical Exam Physical Exam: General: Elderly, thin M. Chronically ill-appearing. Appears comfortable. Lying in bed. A&Ox3. Family at bedside. HEENT: Dry mucous membranes. Respiratory: Normal respiratory effort, CTAB. Cardiovascular: RRR, no BLE edema. Abdomen/GI: Active bowel sounds, mild distention. + epigastric discomfort and pain with palpation. Extremities/Musculoskeletal: No cyanosis. Able to actively move all extremities. Results & Data Results & Data Vital Signs (Past 12 Hours) Vital Signs Temp Pulse Resp BP Pulse Ox O2 Del Method 08/05/25 07:45 36.6 C 87 19 177/89 H 93 Room Air 08/05/25 07:45 Room Air Laboratory Results Short CBC 08/04/25 08/05/25 Range/Units 17:20 07:45 WBC 7.85 7.76 (4.8-10.8) K/ul Hgb 15.6 14.1 (14.0-18.0) g/dL Hct 43.7 40.5 L (42.0-52.0) % Plt Count 266 261 (130-400) K/uL BMP 08/04/25 08/05/25 17:20 07:45 Sodium 136 138 Potassium 4.0 4.0 Chloride 98 102 Carbon Dioxide 28 26 BUN 15 13 Creatinine 0.80 0.76 Glucose 104 H 99 Calcium 9.7 9.2 Liver Function 08/04/25 Range/Units 17:20 Total Bilirubin 0.5 (0.2-1.0) mg/dl AST 15 (13-39) U/L ALT 9 (7-52) U/L Alkaline Phosphatase 138 H (34-104) U/L Albumin 3.7 (3.4-5.0) gm/dl
[2025-08-06] MEDS: ENOXAPARIN INJ 40 MG/0.4 ML SYR SQ SCH (09:35)
[2025-08-06] MEDS: ONDANSETRON INJ 2 MG/ML 2 ML VIAL IV PRN (09:40)
--- NOTE | 2025-08-06 09:41 | Palliative Care Progress Note ---
Date of Service August 06, 2025 Assessment & Plan (1) Intractable abdominal pain: Plan: Pt verbalized satisfaction with current pain regime, stating "I do not feel too bad right now". He only needed o single dose of dilaudid for breakthrough pain overnoght and shared that he slept well. No changes in regime recommended today. Continue TD fentanyl 25ucg/hr patch q72hr JANICE Continue Dilaudid PRN for BTP (2) Nausea & vomiting: Plan: Continue zofran/phenergan as needed for nausea. (3) Poor appetite: (4) Counseling regarding advanced directives and goals of care: Plan: Today: Met with patient and his daughter Jazmine and his son today for 30 minutes. Discussed plan for palliative radiation and incurable nature of pt's cancer. Discussed the plan for discharge to home and patient shared that he most values time at home with family and wishes to be home at the time of his . we briefly discussed hospice care. Hospice care focuses on quality of life when a cure is no longer possible, or the burdens of treatment outweigh the benefits. Discussed that they will not receive curative treatments, but will receive medicine that enhances quality of life, such as treatment for high blood pressure, rapid heart rate, or anxiety. Hospice care includes pain and symptom management, emotional support, medications and medical supplies, coaching for caregivers, grief support, and may include special services like speech and physical therapy when needed. Hospice also provides a 24/7 call service. Hospice care will also make short-term inpatient care available when pain or symptoms become too difficult to manage at home or when caregivers need respite time. Hospice care can be provided wherever the patient lives, includingpersonal care homes or nursing homes. Hospice care is provided by a team that focuses on the patients needs. The team usually includes clergy, home health aides, hospice physicians, nurses, social workers, trained volunteers, and other specialized therapists if needed. A patients personal physician may also be included.Although hospice provides a lot of support, if the patient lives at home, the day-to-day care is provided by the [facility] or paid home health aides. Patient and his daughter shared that they would consider hospice, but Ramo stated "I do not think I am ready for that". Also discussed engaging palliative foundation funded Conscious Dying Coaching with Rev Glenna Rayo. I reviewed that Rev Rayo offers assistance on non clinical issues, supporting patients as they consider, navigate and become clear on what is most important for their end of life. Rev Rayo helps patients align how they are currently living with the vision they see for yourself at the end, then identify and set goals, along with action steps for yourself to fulfill that vision. The focus is on the 5 domains of life: Spiritual, emotional, physical, mental, and practical. Family would like this engagement with Rev Rayo and I have provided pt with Rev Rayo's contact information. Reviewed that End of life coaching and planning begins with 10 structured sessions we like to call, the best three months. Based on 10 total meetings over a 3-4 month period. Average meeting time 60-90 minutes. 2 meetings per domain. Over a three month period, there is support for the family and patient to identify their vision, current reality and steps to be taken to implement life fulfillment and care wishes in the spiritual, emotional, mental, physical and practical domains of life. This service includes: Best Three Months End-of-Life Care Coaching and Planning with Family, Patient and Co-coordination with Medical/Hospice Care Providers. daughter is agreeable to this service, contact information shared with her. 08/05:Spent 30 minutes discussing pt values and GOC with pt and his family. Pt's son shared that he has an advanced directive indicating DNR/DNI, I encouragd that they supply hospital with a coy. Patient reinforced his desire for no aggressive resuscitative efforts and requests change to DNR/DNI status. Pt shared understanding that his cancer is aggressive and widespread and not curable. His daughter shared that they plan to pursue palliative radiation and patient shared that his pain is "unbearble" and constant and if there is a chance that radiation will offer any relief he would pursue it. He shared that being at home with family is of highest importance to him and his daughter shared that he would likely move in with her on discharge. He and his son discussed that the radiation plan is for multiple fractions of short duration (15 minutes) and that although the plan is to begin with mapping while inpt, he would like to spend what time he has left out of the hospital. Orders placed for DNR/DNI per pt request. (5) Palliative care by specialist: Plan: Met with pt and his adult children at bedside. Introduced Palliative Medicine and explained our role in advanced care planning, symptom management and navigation through the progression of life limiting disease. Patient and/or family were receptive to palliative services for goals of care discussions. Reviewed we are different from hospice, a home health nurse visiting service. Plan as above Admission and Anticipated Discharge Date Admission Date: August 04, 2025 Subjective Assessed pt resting comfortably in bed. He pain is better controlled overnight and currently 3 out of 10. He shared he is eager to proceed with having his CT simulation followed by palliative radiation for 5 fractions of therapy and hopeful for ease of swallowing and pain. Review of Systems Review of Systems: All systems reviewed & are unremarkable except as noted in Subjective Physical Exam Constitutional: WD/WN, vitals as above + cachectic and + frail appearing Eyes: PERRL, conjunctivae normal, anicteric sclerae Neck: trachea midline, no thyromegaly Respiratory: normal respiratory effort, lungs clear to auscultation Cardiovascular: RRR, no murmur, no edema Gastrointestinal (Abdomen): Inspection/Auscultation: abdomen not distended Percussion/Palpation: + abdomen tender (Mid abdomen/epigastric region.) Skin: no rashes, warm and dry Psychiatric: A+Ox3, euthymic affect Results & Data Vital Signs (Past 12 Hours) Vital Signs Temp Pulse Resp BP Pulse Ox O2 Del Method 08/06/25 07:27 36.8 C 75 16 174/78 H 95 Room Air Diagnostic Findings Abdomen/Pelvis CT 08/04/25 17:51 EXAMINATION: CT of the abdomen and pelvis performed after the administration of IV contrast TECHNIQUE: Helical CT images from the lung bases through the symphysis pubis were obtained with contrast. Coronal and sagittal reformatted images were generated at a workstation for further assessment. Dose reduction techniques were achieved by using automatic exposure control and/or adjustment of mA and/or kV according to patient size and/or use of iterative reconstruction technique. COMPARISON: 07/01/2025 HISTORY: Abdominal pain FINDINGS: A small left pleural effusion is new from prior CT. Scattered, patchy ill-defined low-density infiltrative lesions in the liver appear increased from 07/01/2025. A necrotic gastrohepatic lymph node is again seen measuring 18 mm, previously 16 mm. Scattered hepatic cysts. Adrenal glands and pancreas are unremarkable. Normal spleen. No bowel obstruction. Moderate colonic stool. Sigmoid diverticulosis without diverticulitis. No evidence for appendicitis. Normal urinary bladder. No free fluid or free air. Numerous small lytic lesions throughout the bones similar to prior. IMPRESSION: No acute finding in the abdomen or pelvis. Interval increase in hepatic metastases, as well as the necrotic gastrohepatic region lymph node metastasis. New small left pleural effusion. Electronically signed by Geovanny Moore 08-04-2025 6:[address] 08/04/25 20:18 Exam(s): CT CHEST Without Contrast EXAM: CT Chest Without Intravenous Contrast CLINICAL HISTORY: Reason for exam: Possible pneumothorax on outpatient pet ct. TECHNIQUE: Axial computed tomography images of the chest without intravenous contrast. CTDI is 10.26 mGy and DLP is 372.37 mGy-cm. Automated exposure control was utilized for the study. A dose lowering technique was utilized adhering to the principles of ALARA. COMPARISON: CT chest from 07/01/2025 FINDINGS: Lungs: Trace amount of scattered subsegmental atelectasis in both lung bases. No acute appearing infiltrate or consolidation is seen. Pleural space: Unremarkable. No significant effusion. No pneumothorax is identified. Heart: The heart is nonenlarged. There is severe coronary calcification. No significant pericardial effusion. Mediastinum: There is 1.5 cm circumferential wall thickening involving the mid to lower esophagus, similar to previous. There are 2 1 cm dense structures in the mid to lower esophagus. Bones/joints: There multiple left-sided rib fractures. The 8th and possibly 9th rib fractures appear acute or non healed. The remainder are chronic. Lytic lesion in the involving the left 7th rib, possibly neoplastic. Mild degenerative changes throughout the spine. No spinal fracture is seen. Soft tissues: Unremarkable. Vasculature: The thoracic aorta is mildly calcified but nondilated. This is a noncontrast study. Lymph nodes: Unremarkable. No enlarged lymph nodes. IMPRESSION: 1. No pneumothorax is identified. 2. There multiple left-sided rib fractures. The 8th and possibly 9th rib fractures appear acute or non healed. The remainder are chronic. 3. Lytic lesion in the involving the left 7th rib, possibly neoplastic. Correlate with recent PET-CT which is not currently available. 4. There is 1.5 cm circumferential wall thickening involving the mid to lower esophagus, similar to previous. Correlate with clinical history. Possible esophageal neoplasm. 5. There are 2 1 cm dense structures in the mid to lower esophagus. Likely recently ingested medication tablets. Electronically signed by: Mateo Brooke MD 08/05/25 01:07 AM Medications Administered Current Inpatient Medications Acetaminophen (Acetaminophen 325 Mg Tab) 650 mg PO QID PRN PRN Reason: pain/fever Stop: 09/03/25 19:13 Cyanocobalamin (Cyanocobalamin (B-12) 100 Mcg Tablet) 100 mcg PO QAM [facility] Stop: 09/04/25 08:59 Last Admin: 08/06/25 09:36 Dose: Not Given Enoxaparin Sodium (Enoxaparin Inj 40 Mg/0.4 Ml Syr) 40 mg SQ QAM [facility] Stop: 09/05/25 08:59 Last Admin: 08/06/25 09:35 Dose: Not Given Famotidine (Famotidine 20 Mg Tab) 20 mg PO AMHS [facility] Stop: 09/03/25 20:59 Last Admin: 08/06/25 09:36 Dose: Not Given Fentanyl (Fentanyl 25 Mcg/Hr Tdsy) 1 patch TD Q3D@0900 [facility] Stop: 08/19/25 14:14 Last Admin: 08/05/25 14:26 Dose: 1 patch Hydromorphone HCl (Hydromorphone Inj 1 Mg/Ml Syringe) 1 mg IV Q6H PRN PRN Reason: Severe Pain (Scale 7, 8, 9,10) Stop: 08/19/25 10:07 Last Admin: 08/06/25 09:40 Dose: 1 mg Promethazine HCl (Phenergan) 6.25 mg in 50.25 mls @ 201 mls/hr IV Q6H PRN; Protocol PRN Reason: Nausea And Vomiting Stop: 09/03/25 19:13 Last Infusion: 08/05/25 16:53 Dose: Infused Melatonin (Melatonin 3 Mg Tab) 3 mg PO HS PRN PRN Reason: Sleep Stop: 09/03/25 20:11 Last Admin: 08/04/25 20:51 Dose: 3 mg Miscellaneous (Fentanyl Patch Remove & Waste) 1 each N/A Q3D@0859 [facility] Stop: 09/07/25 08:58 Miscellaneous (Check Fentanyl Patch Placement) 1 each N/A QS [facility] Stop: 09/04/25 15:59 Last Admin: 08/06/25 09:29 Dose: 1 each Morphine Sulfate (Morphine Sulfate 4 Mg/Ml 1 Ml Carp\\Vial) 4 mg IV Q4H PRN PRN Reason: breakthrough pain Stop: 08/18/25 20:09 Last Admin: 08/06/25 14:40 Dose: 4 mg Ondansetron HCl (Ondansetron Inj 2 Mg/Ml 2 Ml Vial) 4 mg IV Q4H PRN PRN Reason: Nausea Stop: 09/04/25 16:26 Last Admin: 08/06/25 09:40 Dose: 4 mg Pantoprazole Sodium (Pantoprazole 40 Mg Tab) 40 mg PO AMHS [facility] Stop: 09/03/25 20:59 Last Admin: 08/06/25 09:36 Dose: Not Given Senna/Docusate Sodium (Docusate Sodium/Senna 50/8.6mg Tab) 1 tab PO BID [facility] Stop: 09/03/25 20:09 Last Admin: 08/06/25 09:36 Dose: Not Given Sucralfate (Sucralfate 1 Gm Tab) 1 gm PO ACHS [facility] Stop: 09/03/25 20:59 Last Admin: 08/06/25 11:57 Dose: Not Given PG Care Time/CCT Total # of Minutes Spent Total Time Spent with Patient: Total time spent is greater than 50% in coordination of care (as documented) at patient's floor/unit and/or counseling patient: Advanced Care Planning 89565 Advanced Care Planning 30 Min [place] [address] SUB INP/OBS CARE 2/35MIN Patient Type Established History Expanded Problem Focused Exam Expanded Problem Focused Medical Decision Making Moderate Complexity Diagnoses Intractable abdominal pain R10.9 Nausea & vomiting R11.2 Poor appetite R63.0 Counseling regarding advanced directives and goals of care Z71.89 Palliative care by specialist Z51.5 Additional Codes Advanced Care Planning - 12715 Advanced Care Planning 30 Min: 43382 Advanced Care Planning 30 Min ([id number])
--- NOTE | 2025-08-06 13:59 | Hospitalist Progress Note ---
<Statement entered by Kosta Olivier, DO - 08/06/25 17:07> Still c/o severe abd pain today, albeit improved from yesterday Rad-onc considering IP RT Appreciate palliative care input Seen and examined I spent a total of 21 minutes coordinating, documenting, and providing care for this patient excluding time spent in the performance of separately billed services. This included personally reviewing all current laboratories and imaging studies, medical reconciliation, outpatient chart review and discussion with specialists Date of Service August 06, 2025 Assessment & Plan (1) Intractable abdominal pain: (2) Esophageal cancer: Plan Patient is an 89y/o M with PMHx significant for HTN, HLD, CKD stage III, chronic back pain, GERD and recently diagnosed metastatic esophageal adenocarcinoma who presented to the ED on 08/04/25 due to intractable abdominal discomfort, primarily in the epigastric region, over the last 2 weeks. Minimal, if any, relief with PRN oxycodone [employer]. Also p/w constipation despite compliance with MiraLAX and Colace [employer]. 08/02/2025 PET/CT: 1. There is a large and intensely FDG avid mass lesion in the mid to distal esophagus. This is consistent with the known history of esophageal cancer. 2. There are numerous small FDG avid mediastinal lymph nodes, as well as enlarged and FDG avid gastrohepatic nodes. This is consistent with metastatic disease. 3. Multifocal hepatic metastatic disease. 4. There is multifocal osteolytic bony metastatic disease. 5. Question trace residual right basilar pneumothorax. Intractable abdominal pain, primary epigastric Opioid-induced constipation Metastatic esophageal adenocarcinoma with evidence of progressive disease on admitting imaging Protein-calorie malnutrition Admitting CTAP with new small L pleural effusion, interval increase in hepatic metastases, necrotic gastrohepatic region lymph node metastasis, moderate colonic stool. Admitting chest CT with no pneumothorax, multiple L-sided rib fxs (8th and 9th appear new or nonhealed), lytic lesion involving the L 7th rib (possibly neoplastic). Given dose of Relistor with successful BMs, at least 2-3 BMs yesterday per RN. Also received dose of lactulose. Plan to proceed with CT simulation tomorrow and will begin treatment on , plan for 5 fractions of therapy. Appreciate palliative consult, patient started on fentanyl patch yesterday. Improvement in pain reported this afternoon. CODE STATUS transitioned from FULL CODE to DNR/DNI per patient's wishes on 08/05. Significantly poor appetite 2/2 dysphagia, odynophagia. Tolerated protein shakes, thin liquids only [employer] DES[employer]ER. Had some bone broth earlier this morning which he tolerated okay. Hypertensive urgency Improved s/p dose of IV hydralazine, likely 2/2 above. Continue to monitor BP closely. Other chronic medical conditions: HLD - Does not appear to be on statin therapy. GERD - Stable on current regimen, continue only as tolerated. Prediabetes - Hgb A1c 5.7% as of April 2025. CKD stage III - Cr stable as of day of admission (baseline 1.4), avoid nephrotoxic agents as able. DVT Prophylaxis: SQ Lovenox Code Status: DNR/DNI PCP: Leandro Aldridge MD Disposition: DC plans uncertain at this time. Patient seen in collaboration with Dr. Olivier. Please see addendum. I spent a total of 44 minutes coordinating, documenting, and providing care for this patient excluding time spent in the performance of separately billed services or time spent by another provider/QHP. This included personally reviewing all current laboratories and imaging studies, medical reconciliation, outpatient chart review and discussion with specialists. Admission and Anticipated Discharge Date Admission Date: August 04, 2025 Subjective Patient seen and examined in room N376-2 earlier this morning. His daughter, Jazmine, was present at bedside. Sleeping soundly when I entered the room, aroused easily to verbal stimuli. Mentions pain somewhat improved compared to yesterday, still remains in the epigastric region and waxes/wanes. Drank some bone broth this morning. Would like to proceed with CT simulation. Review of Systems Review of Systems: At least ten systems reviewed and negative, except as noted in the subjective section. Physical Exam Physical Exam: General: Elderly, thin M. Chronically ill-appearing. Appears comfortable at rest. Lying in bed. A&Ox3. Daughter at bedside. HEENT: Dry mucous membranes. Respiratory: Normal respiratory effort, CTAB. Cardiovascular: RRR, no BLE edema. Abdomen/GI: Active bowel sounds, mild distention. + epigastric discomfort and pain with palpation. Extremities/Musculoskeletal: No cyanosis. Able to actively move all extremities. Results & Data Results & Data Vital Signs (Past 12 Hours) Vital Signs Temp Pulse Resp BP Pulse Ox O2 Del Method 08/06/25 09:30 Room Air 08/06/25 07:27 36.8 C 75 16 174/78 H 95 Room Air
[2025-08-06] MEDS: MoRPHine SULFATE 4 MG/ML 1 ML CARP\\VIAL IV PRN (14:40)
--- NOTE | 2025-08-06 14:44 | Radiation Oncology Progress Nt ---
Date of Service August 06, 2025 Assessment & Plan (1) Primary carcinoma of lower third of esophagus: Plan: Plan to proceed with CT simulation tomorrow. Treatment will start . Plan for 5 fractions of therapy. Plan ATTENDING ADDENDUM Assessment: Mr. Montoya is an 89-year-old gentleman with metastatic esophageal cancer. The patient was initially seen in the outpatient setting and now has been admitted due to pain control and other medical issues. We have offered consideration for palliative radiation therapy to the esophagus and adjacent disease. The patient did think about it and now would like to move forward with treatment. Recommendation: Palliative radiation therapy to esophagus and metastatic sites of disease including thoracic spine and left rib. Plan: 1. CT simulation for treatment planning for radiation therapy. Plan to start radiation therapy shortly. 2. Continue pain management as per primary medical team. 3. Patient and authorized individuals are encouraged to call us with any further questions or concerns. Rationale/Explanation of Treatment: I explained the indications, alternatives, benefits, risks and side effects of external beam radiation therapy. I then discussed radiation therapy side effects for treatment which include, but are not limited to, skin erythema, dry/moist desquamation of the skin, hyperpigmentation, telangiectasias, damage to the heart and development of cardiovascular disease, damage to the lungs including radiation pneumonitis, pulmonary fibrosis, decrease in pulmonary function, cough, fistula formation, tracheal stenosis, esophageal stenosis, esophageal perforation, dysphagia, nausea, vomiting, ulcers in stomach/bowel, gastritis, gastric perforation, bowel perforation, bowel obstruction, weight loss, dehydration, decreased appetite, liver damage including hepatitis and liver failure, damage to the kidneys including decreased renal function and renal failure, spinal cord damage including myelopathy, fatigue and secondary malignancy. Admission and Anticipated Discharge Date Admission Date: August 06, 2025 Subjective 89-year-old gentleman seen in follow-up today. Today he is resting comfortably in bed. He gave me a pain level of 3 out of 10 in the epigastric area. He feels generally improved. He stated that he now is wearing a pain patch. He stated that he prefers this because he has difficulty swallowing pills. We discussed yesterday plans in regards to treatment. Patient wished to have better pain control. Today he is definitely improved. He would like to proceed with having his CT simulation. We discussed that the treatment is planned to help with swallowing. He understands and would like to proceed. I also spoke with patient's daughter Jazmine. She is also in agreement to go forward with treatment. Will plan CT simulation tomorrow and begin treatment . There is a plan for 5 fractions of therapy. Radiation History Diagnosis: Adenocarcinoma of the distal esophagus. Physical Exam Constitutional: WD/WN, vitals as above + frail appearing Eyes: PERRL, conjunctivae normal, anicteric sclerae ENMT: Ears: no hearing impairment Neck: trachea midline, no thyromegaly Respiratory: normal respiratory effort, lungs clear to auscultation Cardiovascular: RRR, no murmur, no edema Gastrointestinal (Abdomen): Inspection/Auscultation: abdomen not distended Skin: no rashes, warm and dry Psychiatric: A+Ox3, euthymic affect Results & Data Vital Signs (Past 12 Hours) Vital Signs Temp Pulse Resp BP Pulse Ox O2 Del Method 08/06/25 09:30 Room Air 08/06/25 07:27 36.8 C 75 16 174/78 H 95 Room Air PG Care Time/CCT Total # of Minutes Spent Total Time Spent: 30 Total Time Spent with Patient: Total time spent is greater than 50% in coordination of care (as documented) at patient's floor/unit and/or counseling patient: Coding [place] [address] SUB INP/OBS CARE 09/29MIN Patient Type Established History Problem Focused Exam Problem Focused Medical Decision Making Straight Forward Diagnoses Primary carcinoma of lower third of esophagus C15.5
[2025-08-07 08:04] LABS: Creatinine Clr Calc Pharmacy 51.8 ml/min
[2025-08-07] MEDS: PREGABALIN 25 MG CAP PO SCH (09:11)
[2025-08-07] MEDS: dexAMETHasone 4 MG in SYRINGE 0 ML IV SCH (09:44)
--- NOTE | 2025-08-07 10:06 | Palliative Care Progress Note ---
Date of Service August 07, 2025 Assessment & Plan (1) Intractable abdominal pain: Plan: Pt verbalized satisfaction with current pain regime, stating "I do not feel too bad right now". He utilized both morphine and dilaudid for breakthrough pain multiple times overnight and TD fentanyl was increased to 50ucg/hr this morning. Continue TD fentanyl 50ucg/hr patch q72hr JANICE (increased on 08/07) Continue Dilaudid PRN for BTP (2) Nausea & vomiting: Plan: Continue zofran/phenergan as needed for nausea. (3) Poor appetite: (4) Counseling regarding advanced directives and goals of care: Plan: Today: Brief discussion with pt and his daughter at bedside today, Petrona shared plan to continue to optimize health while pt is in hospital with transition to hospice once at home for added support. She shared that she has list of hospice agencies and will begin to call and decide on agency in next few days. 08/06: Met with patient and his daughter Jazmine and his son today for 30 minutes. Discussed plan for palliative radiation and incurable nature of pt's cancer. Discussed the plan for discharge to home and patient shared that he most values time at home with family and wishes to be home at the time of his . we briefly discussed hospice care. Hospice care focuses on quality of life when a cure is no longer possible, or the burdens of treatment outweigh the benefits. Discussed that they will not receive curative treatments, but will receive medicine that enhances quality of life, such as treatment for high blood pressure, rapid heart rate, or anxiety. Hospice care includes pain and symptom management, emotional support, medications and medical supplies, coaching for caregivers, grief support, and may include special services like speech and physical therapy when needed. Hospice also provides a 24/7 call service. Hospice care will also make short-term inpatient care available when pain or symptoms become too difficult to manage at home or when caregivers need respite time. Hospice care can be provided wherever the patient lives, includingperson la care homes or nursing homes. Hospice care is provided by a team that focuses on the patients needs. The team usually includes clergy, home health aides, hospice physicians, nurses, social workers, trained volunteers, and other specialized therapists if needed. A patients personal physician may also be included.Although hospice provides a lot of support, if the patient lives at home, the day-to-day care is provided by the [facility] or paid home health aides. Patient and his daughter shared that they would consider hospice, but Ramo stated "I do not think I am ready for that". Also discussed engaging palliative foundation funded Conscious Dying Coaching with Rev Glenna Rayo. I reviewed that Rev Rayo offers assistance on non clinical issues, supporting patients as they consider, navigate and become clear on what is most important for their end of life. Rev Rayo helps patients align how they are currently living with the vision they see for yourself at the end, then identify and set goals, along with action steps for yourself to fulfill that vision. The focus is on the 5 domains of life: Spiritual, emotional, physical, mental, and practical. Family would like this engagement with Rev Rayo and I have provided pt with Rev Rayo's contact information. Reviewed that End of life coaching and planning begins with 10 structured sessions we like to call, the best three months. Based on 10 total meetings over a 3-4 month period. Average meeting time 60-90 minutes. 2 meetings per domain. Over a three month period, there is support for the family and patient to identify their vision, current reality and steps to be taken to implement life fulfillment and care wishes in the spiritual, emotional, mental, physical and practical domains of life. This service includes: Best Three Months End-of-Life Care Coaching and Planning with Family, Patient and Co-coordination with Medical/Hospice Care Providers. daughter is agreeable to this service, contact information shared with her. 08/05:Spent 30 minutes discussing pt values and GOC with pt and his family. Pt's son shared that he has an advanced directive indicating DNR/DNI, I encouragd that they supply hospital with a coy. Patient reinforced his desire for no aggressive resuscitative efforts and requests change to DNR/DNI status. Pt shared understanding that his cancer is aggressive and widespread and not curable. His daughter shared that they plan to pursue palliative radiation and patient shared that his pain is "unbearble" and constant and if there is a chance that radiation will offer any relief he would pursue it. He shared that being at home with family is of highest importance to him and his daughter shared that he would likely move in with her on discharge. He and his son discussed that the radiation plan is for multiple fractions of short duration (15 minutes) and that although the plan is to begin with mapping while inpt, he would like to spend what time he has left out of the hospital. Orders placed for DNR/DNI per pt request. (5) Palliative care by specialist: Plan: Met with pt and his adult children at bedside. Introduced Palliative Medicine and explained our role in advanced care planning, symptom management and navigation through the progression of life limiting disease. Patient and/or family were receptive to palliative services for goals of care discussions. Reviewed we are different from hospice, a home health nurse visiting service. Plan as above Admission and Anticipated Discharge Date Admission Date: August 06, 2025 Subjective Patient seen and examined at bedside. Daughter, Petrona, present Pt state s pain well managed at this time, TD fentanyl patch was increased to 50ucg/hr today. Had CT simulation for radiation therapy done this AM and anticipates starting palliative radiation tomorrow for 5 days while inpatient. Review of Systems Review of Systems: All systems reviewed & are unremarkable except as noted in Subjective Physical Exam Constitutional: WD/WN, vitals as above + cachectic and + frail appearing Eyes: PERRL, conjunctivae normal, anicteric sclerae Neck: trachea midline, no thyromegaly Respiratory: normal respiratory effort, lungs clear to auscultation Cardiovascular: RRR, no murmur, no edema Gastrointestinal (Abdomen): Inspection/Auscultation: abdomen not distended Percussion/Palpation: + abdomen tender (Mid abdomen/epigastric region.) Skin: no rashes, warm and dry Psychiatric: A+Ox3, euthymic affect Results & Data Vital Signs (Past 12 Hours) Vital Signs Temp Pulse Resp BP Pulse Ox O2 Del Method 08/07/25 07:59 36.2 C L 71 22 155/73 H 93 Room Air 08/06/25 22:15 36.8 C 84 16 156/88 H 93 Room Air Diagnostic Findings Abdomen/Pelvis CT 08/04/25 17:51 EXAMINATION: CT of the abdomen and pelvis performed after the administration of IV contrast TECHNIQUE: Helical CT images from the lung bases through the symphysis pubis were obtained with contrast. Coronal and sagittal reformatted images were generated at a workstation for further assessment. Dose reduction techniques were achieved by using automatic exposure control and/or adjustment of mA and/or kV according to patient size and/or use of iterative reconstruction technique. COMPARISON: 07/01/2025 HISTORY: Abdominal pain FINDINGS: A small left pleural effusion is new from prior CT. Scattered, patchy ill-defined low-density infiltrative lesions in the liver appear increased from 07/01/2025. A necrotic gastrohepatic lymph node is again seen measuring 18 mm, previously 16 mm. Scattered hepatic cysts. Adrenal glands and pancreas are unremarkable. Normal spleen. No bowel obstruction. Moderate colonic stool. Sigmoid diverticulosis without diverticulitis. No evidence for appendicitis. Normal urinary bladder. No free fluid or free air. Numerous small lytic lesions throughout the bones similar to prior. IMPRESSION: No acute finding in the abdomen or pelvis. Interval increase in hepatic metastases, as well as the necrotic gastrohepatic region lymph node metastasis. New small left pleural effusion. Electronically signed by Geovanny Moore 08-04-2025 6:[address] 08/04/25 20:18 Exam(s): CT CHEST Without Contrast EXAM: CT Chest Without Intravenous Contrast CLINICAL HISTORY: Reason for exam: Possible pneumothorax on outpatient pet ct. TECHNIQUE: Axial computed tomography images of the chest without intravenous contrast. CTDI is 10.26 mGy and DLP is 372.37 mGy-cm. Automated exposure control was utilized for the study. A dose lowering technique was utilized adhering to the principles of ALARA. COMPARISON: CT chest from 07/01/2025 FINDINGS: Lungs: Trace amount of scattered subsegmental atelectasis in both lung bases. No acute appearing infiltrate or consolidation is seen. Pleural space: Unremarkable. No significant effusion. No pneumothorax is identified. Heart: The heart is nonenlarged. There is severe coronary calcification. No significant pericardial effusion. Mediastinum: There is 1.5 cm circumferential wall thickening involving the mid to lower esophagus, similar to previous. There are 2 1 cm dense structures in the mid to lower esophagus. Bones/joints: There multiple left-sided rib fractures. The 8th and possibly 9th rib fractures appear acute or non healed. The remainder are chronic. Lytic lesion in the involving the left 7th rib, possibly neoplastic. Mild degenerative changes throughout the spine. No spinal fracture is seen. Soft tissues: Unremarkable. Vasculature: The thoracic aorta is mildly calcified but nondilated. This is a noncontrast study. Lymph nodes: Unremarkable. No enlarged lymph nodes. IMPRESSION: 1. No pneumothorax is identified. 2. There multiple left-sided rib fractures. The 8th and possibly 9th rib fractures appear acute or non healed. The remainder are chronic. 3. Lytic lesion in the involving the left 7th rib, possibly neoplastic. Correlate with recent PET-CT which is not currently available. 4. There is 1.5 cm circumferential wall thickening involving the mid to lower esophagus, similar to previous. Correlate with clinical history. Possible esophageal neoplasm. 5. There are 2 1 cm dense structures in the mid to lower esophagus. Likely recently ingested medication tablets. Electronically signed by: Mateo Brooke MD 08/05/25 01:07 AM Medications Administered Current Inpatient Medications Acetaminophen (Acetaminophen 325 Mg Tab) 650 mg PO QID PRN PRN Reason: pain/fever Stop: 09/03/25 19:13 Cyanocobalamin (Cyanocobalamin (B-12) 100 Mcg Tablet) 100 mcg PO QAM [facility] Stop: 09/04/25 08:59 Last Admin: 08/07/25 09:12 Dose: 100 mcg Enoxaparin Sodium (Enoxaparin Inj 40 Mg/0.4 Ml Syr) 40 mg SQ QAM [facility] Stop: 09/05/25 08:59 Last Admin: 08/07/25 09:13 Dose: 40 mg Famotidine (Famotidine 20 Mg Tab) 20 mg PO [facility] Stop: 09/03/25 20:59 Last Admin: 08/07/25 09:11 Dose: 20 mg Fentanyl (Fentanyl 50 Mcg/Hr Tdsy) 1 patch TD Q3D [facility] Stop: 08/21/25 08:29 Last Admin: 08/07/25 09:45 Dose: 1 patch Hydromorphone HCl (Hydromorphone Inj 1 Mg/Ml Syringe) 1 mg IV Q6H PRN PRN Reason: Severe Pain (Scale 7, 8, 9,10) Stop: 08/19/25 10:07 Last Admin: 08/07/25 10:45 Dose: 1 mg Promethazine HCl (Phenergan) 6.25 mg in 50.25 mls @ 201 mls/hr IV Q6H PRN; Protocol PRN Reason: Nausea And Vomiting Stop: 09/03/25 19:13 Last Infusion: 08/05/25 16:53 Dose: Infused Dexamethasone 4 mg/ Syringe 1 mls @ 1 mls/min IV Q24H [facility] Stop: 09/06/25 08:29 Last Admin: 08/07/25 09:44 Dose: 1 mls/min Melatonin (Melatonin 3 Mg Tab) 3 mg PO HS PRN PRN Reason: Sleep Stop: 09/03/25 20:11 Last Admin: 08/04/25 20:51 Dose: 3 mg Miscellaneous (Fentanyl Patch Remove & Waste) 1 each N/A Q3D JANICE Stop: 09/06/25 08:28 Last Admin: 08/07/25 09:33 Dose: 1 each Miscellaneous (Check Fentanyl Patch Placement) 1 each N/A QS [facility] Stop: 09/06/25 15:59 Morphine Sulfate (Morphine Sulfate 4 Mg/Ml 1 Ml Carp\\Vial) 4 mg IV Q4H PRN PRN Reason: breakthrough pain Stop: 08/18/25 20:09 Last Admin: 08/07/25 03:19 Dose: 4 mg Ondansetron HCl (Ondansetron Inj 2 Mg/Ml 2 Ml Vial) 4 mg IV Q4H PRN PRN Reason: Nausea Stop: 09/04/25 16:26 Last Admin: 08/07/25 03:19 Dose: 4 mg Pantoprazole Sodium (Pantoprazole 40 Mg Tab) 40 mg PO [facility] Stop: 09/03/25 20:59 Last Admin: 08/07/25 09:12 Dose: 40 mg Polyethylene Glycol (Polyethylene (Miralax) 17 Gm Pack) 17 gm PO BID [facility] Stop: 09/06/25 11:34 Last Admin: 08/07/25 12:30 Dose: 17 gm Pregabalin (Pregabalin 25 Mg Cap) 25 mg PO BID [facility] Stop: 09/06/25 08:59 Last Admin: 08/07/25 09:11 Dose: 25 mg Senna/Docusate Sodium (Docusate Sodium/Senna 50/8.6mg Tab) 1 tab PO BID JANICE Stop: 09/03/25 20:09 Last Admin: 08/07/25 09:11 Dose: 1 tab Sennosides (Senna 8.6 Mg Tab) 17.2 mg PO QAM [facility] Stop: 09/06/25 11:44 Last Admin: 08/07/25 12:30 Dose: Not Given Sucralfate (Sucralfate 1 Gm Tab) 1 gm PO ACHS [facility] Stop: 09/03/25 20:59 Last Admin: 08/07/25 12:15 Dose: Not Given PG Care Time/CCT Total # of Minutes Spent Total Time Spent with Patient: Total time spent is greater than 50% in coordination of care (as documented) at patient's floor/unit and/or counseling patient: Coding [place] [address] SUB INP/OBS CARE 2/35MIN Patient Type Established History Expanded Problem Focused Exam Expanded Problem Focused Medical Decision Making Moderate Complexity Diagnoses Intractable abdominal pain R10.9 Nausea & vomiting R11.2 Poor appetite R63.0 Counseling regarding advanced directives and goals of care Z71.89 Palliative care by specialist Z51.5
--- NOTE | 2025-08-07 10:41 | Hospitalist Progress Note ---
Date of Service August 07, 2025 Assessment & Plan (1) Intractable abdominal pain: (2) Esophageal cancer: Plan Patient is an 89y/o M with PMHx significant for HTN, HLD, CKD stage III, chronic back pain, GERD and recently diagnosed metastatic esophageal adenocarcinoma who presented to the ED on 08/04/25 due to intractable abdominal discomfort, primarily in the epigastric region, over the last 2 weeks. Minimal, if any, relief with PRN oxycodone SOFTWARE DEVELOPMENT COORDINATOR. Also p/w constipation despite compliance with MiraLAX and Colace SOFTWARE DEVELOPMENT COORDINATOR. 08/02/2025 PET/CT: 1. There is a large and intensely FDG avid mass lesion in the mid to distal esophagus. This is consistent with the known history of esophageal cancer. 2. There are numerous small FDG avid mediastinal lymph nodes, as well as enlarged and FDG avid gastrohepatic nodes. This is consistent with metastatic disease. 3. Multifocal hepatic metastatic disease. 4. There is multifocal osteolytic bony metastatic disease. 5. Question trace residual right basilar pneumothorax. Intractable abdominal pain, primarily epigastric Metastatic esophageal adenocarcinoma with evidence of progressive disease on admitting imaging Severe protein-calorie malnutrition Admitting CTAP with new small L pleural effusion, interval increase in hepatic metastases, necrotic gastrohepatic region lymph node metastasis, moderate colonic stool Admitting chest CT with no pneumothorax, multiple L-sided rib fxs (8th and 9th appear new or nonhealed), lytic lesion involving the L 7th rib (possibly neoplastic) Palliative following who started 25mcg/hr fentanyl patch on 08/05 Required 2mg IV Dilaudid, 4mg IV morphine overnight Still in a considerable amt of pain this morning, primarily in epigastrium and L rib cage Will increase fentanyl patch to 50mcg/hr, start 4mg IV dexamethasone daily, start Lyrica 25mg BID Had CT stimulation done this AM Will begin palliative radiation treatment tomorrow, plan for 5 fractions of therapy on inpatient basis CODE STATUS transitioned from FULL CODE to DNR/DNI per patient's wishes on 08/05 Significantly poor appetite 2/2 dysphagia, odynophagia >> has been tolerating bone broth, thin liquids but not much else Considering eventual transition to hospice care per d/w pt's daughter, Petrona, this AM if palliative radiation therapy not helpful Opioid-induced constipation Given dose of Relistor on 08/04 with 3 successful BMs, also received dose of lactulose No additional recorded BMs since 08/05; started on meseret bowel reg with MiraLAX and Senna as tolerated May need to consider additional dose of Relistor if above regimen not working Hypertensive urgency Improved s/p dose of IV hydralazine, likely 2/2 above Other chronic medical conditions: GERD - Stable on current regimen, continue only as tolerated Prediabetes - Hgb A1c 5.7% as of April 2025 CKD stage III - Cr stable today (baseline 1.4), not routinely monitoring DVT Prophylaxis: SQ Lovenox Code Status: DNR/DNI PCP: Leandro Aldridge MD Disposition: DC plans uncertain at this time Patient seen in collaboration with Dr. Manrique. Please see addendum. I spent a total of 48 minutes coordinating, documenting, and providing care for this patient excluding time spent in the performance of separately billed services or time spent by another provider/QHP. This included personally reviewing all current laboratories and imaging studies, medical reconciliation, outpatient chart review and discussion with specialists. Admission and Anticipated Discharge Date Admission Date: August 06, 2025 Supervising Physician Co-Signing Physician Notes Patient seen and examined independently. Discussed with above provider Patient continues to report significant pain and discomfort. Pain medication optimized. Discussed with patient's daughter at bedside; will see if patient will benefit from palliative radiation. We also discussed possibility of discharge home on hospice care. Patient needs continued hospitalization for better pain control. I have reviewed the advanced practitioner's documentation, and I agree with, and take responsibility for the plan of care I spent a total of 30 minutes coordinating, documenting, and providing care for this patient excluding time spent in the performance of separately billed services. All of the aforementioned completed while collaborating with the assigned advanced practitioner for a full treatment plan Subjective Patient seen and examined in room N376-2. Daughter, Petrona, at bedside. Pain mostly unchanged, remains primarily in epigastrium. Also in the L rib region. Has been tolerating some bone broth. Had CT simulation for radiation therapy done this AM. Review of Systems Review of Systems: At least ten systems reviewed and negative, except as noted in the subjective section. Physical Exam Physical Exam: General: Elderly, thin M. Chronically ill-appearing. Cachectic. Lying in bed. A&Ox3. Daughter at bedside. HEENT: Dry mucous membranes. Respiratory: Normal respiratory effort, CTAB. + L rib pain with palpation. Cardiovascular: RRR, no BLE edema. Abdomen/GI: Active bowel sounds, mild distention. + epigastric discomfort and pain with palpation. Extremities/Musculoskeletal: No cyanosis. Able to actively move all extremities. Results & Data Results & Data Vital Signs (Past 12 Hours) Vital Signs Temp Pulse Resp BP Pulse Ox O2 Del Method 08/07/25 07:59 36.2 C L 71 22 155/73 H 93 Room Air Laboratory Results [facility] 08/07/25 06:56 Creatinine 0.81
[2025-08-07] MEDS: SENNA 8.6 MG TAB PO SCH (12:30)
[2025-08-07] MEDS: POLYETHYLENE (MIRALAX) 17 GM PACK PO SCH (12:30)
--- NOTE | 2025-08-08 10:08 | Hospitalist Progress Note ---
Date of Service August 08, 2025 Assessment & Plan (1) Intractable abdominal pain: (2) Esophageal cancer: Plan Patient is an 89y/o M with PMHx significant for HTN, HLD, CKD stage III, chronic back pain, GERD and recently diagnosed metastatic esophageal adenocarcinoma who presented to the ED on 08/04/25 due to intractable abdominal discomfort, primarily in the epigastric region, over the last 2 weeks. 08/02/2025 PET/CT: 1. There is a large and intensely FDG avid mass lesion in the mid to distal esophagus. This is consistent with the known history of esophageal cancer. 2. There are numerous small FDG avid mediastinal lymph nodes, as well as enlarged and FDG avid gastrohepatic nodes. This is consistent with metastatic disease. 3. Multifocal hepatic metastatic disease. 4. There is multifocal osteolytic bony metastatic disease. 5. Question trace residual right basilar pneumothorax. Intractable abdominal pain, primarily epigastric Metastatic esophageal adenocarcinoma with evidence of progressive disease on admitting imaging Severe protein-calorie malnutrition Admitting CTAP with new small L pleural effusion, interval increase in hepatic metastases, necrotic gastrohepatic region lymph node metastasis, moderate colonic stool Admitting chest CT with no pneumothorax, multiple L-sided rib fxs (8th and 9th appear new or nonhealed), lytic lesion involving the L 7th rib (possibly neoplastic) Still in a considerable amt of pain this morning, primarily in epigastrium and L rib cage - improved control with increased fentanyl patch to 50mcg/hr, 4mg IV dexamethasone daily, Lyrica 25mg BID Will begin palliative radiation treatment this afternoon; plan for 5 fractions of therapy on inpatient basis CODE STATUS transitioned to DNR/DNI per patient's wishes on 08/05 Significantly poor appetite 2/2 dysphagia, odynophagia >> has been tolerating bone broth, coordinating with RD and will advance to soft regular foods Considering eventual transition to hospice care per d/w pt's daughter, Petrona, this AM if palliative radiation therapy not helpful Opioid-induced constipation Last bowel movement 08/07, continue bowel regimen of MiraLAX and Senna May need to consider additional dose of Relistor if above regimen not working Hypertensive urgency -> resolved Improved with optimized pain control Other chronic medical conditions: GERD - Stable on current regimen, continue only as tolerated Prediabetes - Hgb A1c 5.7% as of April 2025 CKD stage III - Cr stable today (baseline 1.4), not routinely monitoring DVT Prophylaxis: SQ Lovenox Code Status: DNR/DNI PCP: Leandro Aldridge MD Disposition: admitted, undergoing palliative XRT and optimizing pain control. DC plans uncertain at this time Patient seen in collaboration with Dr. Manrique. I spent a total of 45 minutes coordinating, documenting, and providing care for this patient excluding time spent in the performance of separately billed services or time spent by another provider/QHP. This included personally reviewing all current laboratories and imaging studies, medical reconciliation, outpatient chart review and discussion with specialists. Admission and Anticipated Discharge Date Admission Date: August 06, 2025 Supervising Physician Co-Signing Physician Notes I have reviewed the advanced practitioner's documentation, and I agree with, and take responsibility for the plan of care Subjective Patient seen and examined at bedside. Pain better controlled today. Tolerating clears and had a bowel movement overnight. Awaiting palliative XRT today. No F/C, CP, SOB. Review of Systems Review of Systems: At least ten systems reviewed and negative except as noted in the HPI. Physical Exam Physical Exam: Gen: WD/WN, chronically-ill appearing, cachectic, sitting in bedside chair, A&Ox3 HEENT: Normocephalic, atraumatic Lung: Clear to Auscultation bilaterally Heart: Regular rate, regular rhythm Abdomen: Soft, NT, ND +BS x 4 Extremities: no edema Skin: Warm, no rash Results & Data Results & Data Vital Signs (Past 12 Hours) Vital Signs Temp Pulse Resp BP Pulse Ox O2 Del Method 08/08/25 07:18 36.5 C 77 16 151/75 H 94 Room Air 08/07/25 22:45 36.6 C 84 16 163/78 H 94 Room Air Diagnostic Findings Abdomen/Pelvis CT 08/04/25 17:51 EXAMINATION: CT of the abdomen and pelvis performed after the administration of IV contrast TECHNIQUE: Helical CT images from the lung bases through the symphysis pubis were obtained with contrast. Coronal and sagittal reformatted images were generated at a workstation for further assessment. Dose reduction techniques were achieved by using automatic exposure control and/or adjustment of mA and/or kV according to patient size and/or use of iterative reconstruction technique. COMPARISON: 07/01/2025 HISTORY: Abdominal pain FINDINGS: A small left pleural effusion is new from prior CT. Scattered, patchy ill-defined low-density infiltrative lesions in the liver appear increased from 07/01/2025. A necrotic gastrohepatic lymph node is again seen measuring 18 mm, previously 16 mm. Scattered hepatic cysts. Adrenal glands and pancreas are unremarkable. Normal spleen. No bowel obstruction. Moderate colonic stool. Sigmoid diverticulosis without diverticulitis. No evidence for appendicitis. Normal urinary bladder. No free fluid or free air. Numerous small lytic lesions throughout the bones similar to prior. IMPRESSION: No acute finding in the abdomen or pelvis. Interval increase in hepatic metastases, as well as the necrotic gastrohepatic region lymph node metastasis. New small left pleural effusion. Electronically signed by Geovanny Moore 08-04-2025 6:[address] 08/04/25 20:18 Exam(s): CT CHEST Without Contrast EXAM: CT Chest Without Intravenous Contrast CLINICAL HISTORY: Reason for exam: Possible pneumothorax on outpatient pet ct. TECHNIQUE: Axial computed tomography images of the chest without intravenous contrast. CTDI is 10.26 mGy and DLP is 372.37 mGy-cm. Automated exposure control was utilized for the study. A dose lowering technique was utilized adhering to the principles of ALARA. COMPARISON: CT chest from 07/01/2025 FINDINGS: Lungs: Trace amount of scattered subsegmental atelectasis in both lung bases. No acute appearing infiltrate or consolidation is seen. Pleural space: Unremarkable. No significant effusion. No pneumothorax is identified. Heart: The heart is nonenlarged. There is severe coronary calcification. No significant pericardial effusion. Mediastinum: There is 1.5 cm circumferential wall thickening involving the mid to lower esophagus, similar to previous. There are 2 1 cm dense structures in the mid to lower esophagus. Bones/joints: There multiple left-sided rib fractures. The 8th and possibly 9th rib fractures appear acute or non healed. The remainder are chronic. Lytic lesion in the involving the left 7th rib, possibly neoplastic. Mild degenerative changes throughout the spine. No spinal fracture is seen. Soft tissues: Unremarkable. Vasculature: The thoracic aorta is mildly calcified but nondilated. This is a noncontrast study. Lymph nodes: Unremarkable. No enlarged lymph nodes. IMPRESSION: 1. No pneumothorax is identified. 2. There multiple left-sided rib fractures. The 8th and possibly 9th rib fractures appear acute or non healed. The remainder are chronic. 3. Lytic lesion in the involving the left 7th rib, possibly neoplastic. Correlate with recent PET-CT which is not currently available. 4. There is 1.5 cm circumferential wall thickening involving the mid to lower esophagus, similar to previous. Correlate with clinical history. Possible esophageal neoplasm. 5. There are 2 1 cm dense structures in the mid to lower esophagus. Likely recently ingested medication tablets. Electronically signed by: Mateo Brooke MD 08/05/25 01:07 AM
--- NOTE | 2025-08-08 15:03 | Palliative Care Progress Note ---
Date of Service August 08, 2025 Assessment & Plan (1) Intractable abdominal pain: Plan: Pt verbalized satisfaction with current pain regime, TD fentanyl was increased to 50ucg/hr yesterday, no changes recommended today . Continue TD fentanyl 50ucg/hr patch q72hr JANICE (increased on 08/07) Continue Dilaudid PRN for BTP (2) Nausea & vomiting: Plan: Continue zofran/phenergan as needed for nausea. (3) Poor appetite: (4) Counseling regarding advanced directives and goals of care: Plan: 08/07: Brief discussion with pt and his daughter at bedside today, P[place] shared plan to continue to optimize health while pt is in hospital with transition to hospice once at home for added support. She shared that she has list of hospice agencies and will begin to call and decide on agency in next few days. 08/06: Met with patient and his daughter Jazmine and his son today for 30 minutes. Discussed plan for palliative radiation and incurable nature of pt's cancer. Discussed the plan for discharge to home and patient shared that he most values time at home with family and wishes to be home at the time of his . we briefly discussed hospice care. Hospice care focuses on quality of life when a cure is no longer possible, or the burdens of treatment outweigh the benefits. Discussed that they will not receive curative treatments, but will receive medicine that enhances quality of life, such as treatment for high blood pressure, rapid heart rate, or anxiety. Hospice care includes pain and symptom management, emotional support, medications and medical supplies, coaching for caregivers, grief support, and may include special services like speech and physical therapy when needed. Hospice also provides a 24/7 call service. Hospice care will also make short-term inpatient care available when pain or symptoms become too difficult to manage at home or when caregivers need respite time. Hospice care can be provided wherever the patient lives, includingpersonal care homes or nursing homes. Hospice care is provided by a team that focuses on the patients needs. The team usually includes clergy, home health aides, hospice physicians, nurses, social workers, trained volunteers, and other specialized therapists if needed. A patients personal physician may also be included.Although hospice provides a lot of support, if the patient lives at home, the day-to-day care is provided by the [facility] or paid home health aides. Patient and his daughter shared that they would consider hospice, but Ramo stated "I do not think I am ready for that". Also discussed engaging palliative foundation funded Conscious Dying Coaching with Rev Glenna Rayo. I reviewed that Rev Rayo offers assistance on non clinical issues, supporting patients as they consider, navigate and become clear on what is most important for their end of life. Rev Rayo helps patients align how they are currently living with the vision they see for yourself at the end, then identify and set goals, along with action steps for yourself to fulfill that vision. The focus is on the 5 domains of life: Spiritual, emotional, physical, mental, and practical. Family would like this engagement with Rev Rayo and I have provided pt with Rev Rayo's contact information. Reviewed that End of life coaching and planning begins with 10 structured sessions we like to call, the best three months. Based on 10 total meetings over a 3-4 month period. Average meeting time 60-90 minutes. 2 meetings per domain. Over a three month period, there is support for the family and patient to identify their vision, current reality and steps to be taken to implement life fulfillment and care wishes in the spiritual, emotional, mental, physical and practical domains of life. This service includes: Best Three Months End-of-Life Care Coaching and Planning with Family, Patient and Co-coordination with Medical/Hospice Care Providers. daughter is agreeable to this service, contact information shared with her. 08/05:Spent 30 minutes discussing pt values and GOC with pt and his family. Pt's son shared that he has an advanced directive indicating DNR/DNI, I encouragd that they supply hospital with a coy. Patient reinforced his desire for no aggressive resuscitative efforts and requests change to DNR/DNI status. Pt shared understanding that his cancer is aggressive and widespread and not curable. His daughter shared that they plan to pursue palliative radiation and patient shared that his pain is "unbearble" and constant and if there is a chance that radiation will offer any relief he would pursue it. He shared that being at home with family is of highest importance to him and his daughter shared that he would likely move in with her on discharge. He and his son discussed that the radiation plan is for multiple fractions of short duration (15 minutes) and that although the plan is to begin with mapping while inpt, he would like to spend what time he has left out of the hospital. Orders placed for DNR/DNI per pt request. (5) Palliative care by specialist: Plan: Met with pt and his adult children at bedside. Introduced Palliative Medicine and explained our role in advanced care planning, symptom management and navigation through the progression of life limiting disease. Patient and/or family were receptive to palliative services for goals of care discussions. Reviewed we are different from hospice, a home health nurse visiting service. Plan as above; plan for discharge to home with hospice next week after 5 fractions of palliative radiation, first treatment will be today. Admission and Anticipated Discharge Date Admission Date: August 06, 2025 Subjective pt awake and alert and pleasantly communicative today. He shared pain well managed and he is anticipating palliative radiation this afternoon. VSS. GAYTAN. Review of Systems Review of Systems: All systems reviewed & are unremarkable except as noted in Subjective Physical Exam Constitutional: WD/WN, vitals as above + cachectic and + frail appearing Eyes: PERRL, conjunctivae normal, anicteric sclerae Neck: trachea midline, no thyromegaly Respiratory: normal respiratory effort, lungs clear to auscultation Cardiovascular: RRR, no murmur, no edema Gastrointestinal (Abdomen): Inspection/Auscultation: abdomen not distended Percussion/Palpation: + abdomen tender (Mid abdomen/epigastric region.) Skin: no rashes, warm and dry Psychiatric: A+Ox3, euthymic affect Results & Data Vital Signs (Past 12 Hours) Vital Signs Temp Pulse Resp BP Pulse Ox O2 Del Method 08/08/25 14:38 36.8 C 78 16 138/67 93 Room Air 08/08/25 07:18 36.5 C 77 16 151/75 H 94 Room Air Diagnostic Findings Abdomen/Pelvis CT 08/04/25 17:51 EXAMINATION: CT of the abdomen and pelvis performed after the administration of IV contrast TECHNIQUE: Helical CT images from the lung bases through the symphysis pubis were obtained with contrast. Coronal and sagittal reformatted images were generated at a workstation for further assessment. Dose reduction techniques were achieved by using automatic exposure control and/or adjustment of mA and/or kV according to patient size and/or use of iterative reconstruction technique. COMPARISON: 07/01/2025 HISTORY: Abdominal pain FINDINGS: A small left pleural effusion is new from prior CT. Scattered, patchy ill-defined low-density infiltrative lesions in the liver appear increased from 07/01/2025. A necrotic gastrohepatic lymph node is again seen measuring 18 mm, previously 16 mm. Scattered hepatic cysts. Adrenal glands and pancreas are unremarkable. Normal spleen. No bowel obstruction. Moderate colonic stool. Sigmoid diverticulosis without diverticulitis. No evidence for appendicitis. Normal urinary bladder. No free fluid or free air. Numerous small lytic lesions throughout the bones similar to prior. IMPRESSION: No acute finding in the abdomen or pelvis. Interval increase in hepatic metastases, as well as the necrotic gastrohepatic region lymph node metastasis. New small left pleural effusion. Electronically signed by Geovanny Moore 08-04-2025 6:[address] 08/04/25 20:18 Exam(s): CT CHEST Without Contrast EXAM: CT Chest Without Intravenous Contrast CLINICAL HISTORY: Reason for exam: Possible pneumothorax on outpatient pet ct. TECHNIQUE: Axial computed tomography images of the chest without intravenous contrast. CTDI is 10.26 mGy and DLP is 372.37 mGy-cm. Automated exposure control was utilized for the study. A dose lowering technique was utilized adhering to the principles of ALARA. COMPARISON: CT chest from 07/01/2025 FINDINGS: Lungs: Trace amount of scattered subsegmental atelectasis in both lung bases. No acute appearing infiltrate or consolidation is seen. Pleural space: Unremarkable. No significant effusion. No pneumothorax is identified. Heart: The heart is nonenlarged. There is severe coronary calcification. No significant pericardial effusion. Mediastinum: There is 1.5 cm circumferential wall thickening involving the mid to lower esophagus, similar to previous. There are 2 1 cm dense structures in the mid to lower esophagus. Bones/joints: There multiple left-sided rib fractures. The 8th and possibly 9th rib fractures appear acute or non healed. The remainder are chronic. Lytic lesion in the involving the left 7th rib, possibly neoplastic. Mild degenerative changes throughout the spine. No spinal fracture is seen. Soft tissues: Unremarkable. Vasculature: The thoracic aorta is mildly calcified but nondilated. This is a noncontrast study. Lymph nodes: Unremarkable. No enlarged lymph nodes. IMPRESSION: 1. No pneumothorax is identified. 2. There multiple left-sided rib fractures. The 8th and possibly 9th rib fractures appear acute or non healed. The remainder are chronic. 3. Lytic lesion in the involving the left 7th rib, possibly neoplastic. Correlate with recent PET-CT which is not currently available. 4. There is 1.5 cm circumferential wall thickening involving the mid to lower esophagus, similar to previous. Correlate with clinical history. Possible esophageal neoplasm. 5. There are 2 1 cm dense structures in the mid to lower esophagus. Likely recently ingested medication tablets. Electronically signed by: Mateo Brooke MD 08/05/25 01:07 AM Medications Administered Current Inpatient Medications Acetaminophen (Acetaminophen 325 Mg Tab) 650 mg PO QID PRN PRN Reason: pain/fever Stop: 09/03/25 19:13 Cyanocobalamin (Cyanocobalamin (B-12) 100 Mcg Tablet) 100 mcg PO QAM [facility] Stop: 09/04/25 08:59 Last Admin: 08/08/25 08:46 Dose: 100 mcg Enoxaparin Sodium (Enoxaparin Inj 40 Mg/0.4 Ml Syr) 40 mg SQ QAM [facility] Stop: 09/05/25 08:59 Last Admin: 08/08/25 08:46 Dose: 40 mg Famotidine (Famotidine 20 Mg Tab) 20 mg PO AMHS [facility] Stop: 09/03/25 20:59 Last Admin: 08/08/25 08:44 Dose: 20 mg Fentanyl (Fentanyl 50 Mcg/Hr Tdsy) 1 patch TD Q3D [facility] Stop: 08/21/25 08:29 Last Admin: 08/07/25 09:45 Dose: 1 patch Hydromorphone HCl (Hydromorphone Inj 1 Mg/Ml Syringe) 1 mg IV Q6H PRN PRN Reason: Severe Pain (Scale 7, 8, 9,10) Stop: 08/19/25 10:07 Last Admin: 08/07/25 10:45 Dose: 1 mg Promethazine HCl (Phenergan) 6.25 mg in 50.25 mls @ 201 mls/hr IV Q6H PRN; Protocol PRN Reason: Nausea And Vomiting Stop: 09/03/25 19:13 Last Infusion: 08/05/25 16:53 Dose: Infused Dexamethasone 4 mg/ Syringe 1 mls @ 1 mls/min IV Q24H [facility] Stop: 09/06/25 08:29 Last Admin: 08/08/25 08:46 Dose: 1 mls/min Melatonin (Melatonin 3 Mg Tab) 3 mg PO HS PRN PRN Reason: Sleep Stop: 09/03/25 20:11 Last Admin: 08/04/25 20:51 Dose: 3 mg Miscellaneous (Fentanyl Patch Remove & Waste) 1 each N/A Q3D [facility] Stop: 09/06/25 08:28 Last Admin: 08/07/25 09:33 Dose: 1 each Miscellaneous (Check Fentanyl Patch Placement) 1 each N/A QS [facility] Stop: 09/06/25 15:59 Last Admin: 08/08/25 08:58 Dose: 1 each Morphine Sulfate (Morphine Sulfate 4 Mg/Ml 1 Ml Carp\\Vial) 4 mg IV Q4H PRN PRN Reason: breakthrough pain Stop: 08/18/25 20:09 Last Admin: 08/07/25 03:19 Dose: 4 mg Ondansetron HCl (Ondansetron Inj 2 Mg/Ml 2 Ml Vial) 4 mg IV Q4H PRN PRN Reason: Nausea Stop: 09/04/25 16:26 Last Admin: 08/07/25 03:19 Dose: 4 mg Pantoprazole Sodium (Pantoprazole 40 Mg Tab) 40 mg PO AMHS [facility] Stop: 09/03/25 20:59 Last Admin: 08/08/25 08:46 Dose: 40 mg Polyethylene Glycol (Polyethylene (Miralax) 17 Gm Pack) 17 gm PO BID [facility] Stop: 09/06/25 11:34 Last Admin: 08/08/25 08:58 Dose: Not Given Pregabalin (Pregabalin 25 Mg Cap) 25 mg PO BID [facility] Stop: 09/06/25 08:59 Last Admin: 08/08/25 08:45 Dose: 25 mg Senna/Docusate Sodium (Docusate Sodium/Senna 50/8.6mg Tab) 1 tab PO BID [facility] Stop: 09/03/25 20:09 Last Admin: 08/08/25 08:44 Dose: 1 tab Sennosides (Senna 8.6 Mg Tab) 17.2 mg PO QAM [facility] Stop: 09/06/25 11:44 Last Admin: 08/08/25 08:59 Dose: Not Given Sucralfate (Sucralfate 1 Gm Tab) 1 gm PO ACHS [facility] Stop: 09/03/25 20:59 Last Admin: 08/08/25 11:31 Dose: Not Given PG Care Time/CCT Total # of Minutes Spent Total Time Spent with Patient: Total time spent is greater than 50% in coordination of care (as documented) at patient's floor/unit and/or counseling patient: Coding [place] [address] SUB INP/OBS CARE 2/35MIN Patient Type Established History Expanded Problem Focused Exam Expanded Problem Focused Medical Decision Making Moderate Complexity Diagnoses Intractable abdominal pain R10.9 Nausea & vomiting R11.2 Poor appetite R63.0 Counseling regarding advanced directives and goals of care Z71.89 Palliative care by specialist Z51.5
[2025-08-09] MEDS: ACETAMINOPHEN 500 MG TAB PO ONE (11:26)
--- NOTE | 2025-08-09 11:28 | Hospitalist Progress Note ---
Date of Service August 09, 2025 Assessment & Plan (1) Intractable abdominal pain: (2) Esophageal cancer: Plan Patient is an 89y/o M with PMHx significant for HTN, HLD, CKD stage III, chronic back pain, GERD and recently diagnosed metastatic esophageal adenocarcinoma who presented to the ED on 08/04/25 due to intractable abdominal discomfort, primarily in the epigastric region, over the last 2 weeks. 08/02/2025 PET/CT: 1. There is a large and intensely FDG avid mass lesion in the mid to distal esophagus. This is consistent with the known history of esophageal cancer. 2. There are numerous small FDG avid mediastinal lymph nodes, as well as enlarged and FDG avid gastrohepatic nodes. This is consistent with metastatic disease. 3. Multifocal hepatic metastatic disease. 4. There is multifocal osteolytic bony metastatic disease. 5. Question trace residual right basilar pneumothorax. Intractable abdominal pain, primarily epigastric Metastatic esophageal adenocarcinoma with evidence of progressive disease on admitting imaging Severe protein-calorie malnutrition Admitting CTAP with new small L pleural effusion, interval increase in hepatic metastases, necrotic gastrohepatic region lymph node metastasis, moderate colonic stool Admitting chest CT with no pneumothorax, multiple L-sided rib fxs (8th and 9th appear new or nonhealed), lytic lesion involving the L 7th rib (possibly neoplastic) Still in a considerable amt of pain this morning, primarily in epigastrium and L rib cage - improved control with increased fentanyl patch to 50mcg/hr, 4mg IV dexamethasone daily, Lyrica 25mg BID CODE STATUS transitioned to DNR/DNI per patient's wishes on 08/05 Significantly poor appetite 2/2 dysphagia, odynophagia >> has been tolerating bone broth, coordinating with RD and will advance to soft regular foods Palliative radiation treatment start delayed to this afternoon due to machine malfunction; plan for 5 fractions of therapy on inpatient basis (EOT 08/15 due to weekend) Appreciate palliative input - considering eventual transition to hospice care per d/w pt's daughterPetrona Plan for family discussion this afternoon for dispo planning - patient desiring to return home, could do remainder of palliative radiation xrt on outpatient ba sis Opioid-induced constipation Last bowel movement 08/08, continue bowel regimen of MiraLAX and Senna Hypertensive urgency -> resolved Improved with optimized pain control Other chronic medical conditions: GERD - Stable on current regimen, continue only as tolerated Prediabetes - Hgb A1c 5.7% as of April 2025 CKD stage III - Cr stable today (baseline 1.4), not routinely monitoring DVT Prophylaxis: SQ Lovenox Code Status: DNR/DNI PCP: Leandro Aldridge MD Disposition: admitted, undergoing palliative XRT and optimizing pain control. DC plans for home, establish with hospice but still determining timing Patient seen in collaboration with Dr. Manrique. I spent a total of 50 minutes coordinating, documenting, and providing care for this patient excluding time spent in the performance of separately billed services or time spent by another provider/QHP. This included personally revie wing all current laboratories and imaging studies, medical reconciliation, outpatient chart review and discussion with specialists. Admission and Anticipated Discharge Date Admission Date: August 06, 2025 Subjective Seen and examined in 376-2. Tolerated some softer solids for breakfast but now with some residual discomfort. Also with R sided headache, present for a few days but more painful now so he mentioned it. + Nauseated and loost bowel movement overnight. No F/C, lightheadedness, CP, SOB. Due for palliative radiation today - did not receive yest as machine was down. Review of Systems Review of Systems: At least ten systems reviewed and negative except as noted in the HPI. Physical Exam Physical Exam: Gen: WD/WN, chronically-ill appearing, cachectic, resting in bed, A&Ox3 HEENT: Normocephalic, atraumatic Lung: Clear to Auscultation bilaterally Heart: Regular rate, regular rhythm Abdomen: Soft, NT, ND +BS x 4 Extremities: no edema Skin: Warm, no rash Results & Data Results & Data Vital Signs (Past 12 Hours) Vital Signs Temp Pulse Resp BP Pulse Ox O2 Del Method 08/09/25 07:27 36.7 C 64 17 181/79 H 95 Room Air Diagnostic Findings Abdomen/Pelvis CT 08/04/25 17:51 EXAMINATION: CT of the abdomen and pelvis performed after the administration of IV contrast TECHNIQUE: Helical CT images from the lung bases through the symphysis pubis were obtained with contrast. Coronal and sagittal reformatted images were generated at a workstation for further assessment. Dose reduction techniques were achieved by using automatic exposure control and/or adjustment of mA and/or kV according to patient size and/or use of iterative reconstruction technique. COMPARISON: 07/01/2025 HISTORY: Abdominal pain FINDINGS: A small left pleural effusion is new from prior CT. Scattered, patchy ill-defined low-density infiltrative lesions in the liver appear increased from 07/01/2025. A necrotic gastrohepatic lymph node is again seen measuring 18 mm, previously 16 mm. Scattered hepatic cysts. Adrenal glands and pancreas are unremarkable. Normal spleen. No bowel obstruction. Moderate colonic stool. Sigmoid diverticulosis without diverticulitis. No evidence for appendicitis. Normal urinary bladder. No free fluid or free air. Numerous small lytic lesions throughout the bones similar to prior. IMPRESSION: No acute finding in the abdomen or pelvis. Interval increase in hepatic metastases, as well as the necrotic gastrohepatic region lymph node metastasis. New small left pleural effusion. Electronically signed by Geovanny Moroe 08-04-2025 6:[address] 08/04/25 20:18 Exam(s): CT CHEST Without Contrast EXAM: CT Chest Without Intravenous Contrast CLINICAL HISTORY: Reason for exam: Possible pneumothorax on outpatient pet ct. TECHNIQUE: Axial computed tomography images of the chest without intravenous contrast. CTDI is 10.26 mGy and DLP is 372.37 mGy-cm. Automated exposure control was utilized for the study. A dose lowering technique was utilized adhering to the principles of ALARA. COMPARISON: CT chest from 07/01/2025 FINDINGS: Lungs: Trace amount of scattered subsegmental atelectasis in both lung bases. No acute appearing infiltrate or consolidation is seen. Pleural space: Unremarkable. No significant effusion. No pneumothorax is identified. Heart: The heart is nonenlarged. There is severe coronary calcification. No significant pericardial effusion. Mediastinum: There is 1.5 cm circumferential wall thickening involving the mid to lower esophagus, similar to previous. There are 2 1 cm dense structures in the mid to lower esophagus. Bones/joints: There multiple left-sided rib fractures. The 8th and possibly 9th rib fractures appear acute or non healed. The remainder are chronic. Lytic lesion in the involving the left 7th rib, possibly neoplastic. Mild degenerative changes throughout the spine. No spinal fracture is seen. Soft tissues: Unremarkable. Vasculature: The thoracic aorta is mildly calcified but nondilated. This is a noncontrast study. Lymph nodes: Unremarkable. No enlarged lymph nodes. IMPRESSION: 1. No pneumothorax is identified. 2. There multiple left-sided rib fractures. The 8th and possibly 9th rib fractures appear acute or non healed. The remainder are chronic. 3. Lytic lesion in the involving the left 7th rib, possibly neoplastic. Correlate with recent PET-CT which is not currently available. 4. There is 1.5 cm circumferential wall thickening involving the mid to lower esophagus, similar to previous. Correlate with clinical history. Possible esophageal neoplasm. 5. There are 2 1 cm dense structures in the mid to lower esophagus. Likely recently ingested medication tablets. Electronically signed by: Mateo Brooke MD 08/05/25 01:07 AM
--- NOTE | 2025-08-09 12:31 | Palliative Care Progress Note ---
Date of Service August 09, 2025 Assessment & Plan (1) Intractable abdominal pain: Plan: Pt verbalized satisfaction with current fentanyl dose, he has required NO prns overnight. Discussed discontinuing IV dilaudid in favor of PO BTP medication (morphine) in preparation for discharge to home. Continue TD fentanyl 50ucg/hr patch q72hr JANICE (increased on 08/07) Discontinue IV Dilaudid Added roxanol 10mg PO q4h PRN for BTP Continue morphine 4mg IVP q4h PRN for BTP <<to be used if pt unable to take PO meds only. (2) Nausea & vomiting: Plan: Continue zofran/phenergan as needed for nausea. (3) Poor appetite: (4) Counseling regarding advanced directives and goals of care: Plan: GOC clearly established for DNR/DNI, continue to optimze care throught discharge, plan for 5 fractions of palliative radiation p/t DC home with hospice. 08/07: Brief discussion with pt and his daughter at bedside today, Petrona shared plan to continue to optimize health while pt is in hospital with transition to hospice once at home for added support. She shared that she has list of hospice agencies and will begin to call and decide on agency in next few days. 08/06: Met with patient and his daughter Jazmine and his son today for 30 minutes. Discussed plan for palliative radiation and incurable nature of pt's cancer. Discussed the plan for discharge to home and patient shared that he most values time at home with family and wishes to be home at the time of his . we briefly discussed hospice care. Hospice care focuses on quality of life when a cure is no longer possible, or the burdens of treatment outweigh the benefits. Discussed that they will not receive curative treatments, but will receive medicine that enhances quality of life, such as treatment for high blood pressure, rapid heart rate, or anxiety. Hospice care includes pain and symptom management, emotional support, medications and medical supplies, coaching for caregivers, grief support, and may include special services like speech and physical therapy when needed. Hospice also provides a 24/7 call service. Hospice care will also make short-term inpatient care available when pain or symptoms become too difficult to manage at home or when caregivers need respite time. Hosp[facility] care can be provided wherever the patient lives, [facility] or nursing homes. Hospice care is provided by a team that focuses on the patients needs. The team usually includes clergy, home health aides, hospice physicians, nurses, social workers, trained volunteers, and other specialized therapists if needed. A patients personal physician may also be included.Although hospice provides a lot of support, if the patient lives at home, the day-to-day care is provided by the [place] or paid home health aides. Patient and his daughter shared that they would consider hospice, but Ramo stated "I do not think I am ready for that". Also discussed engaging palliative foundation funded Conscious Dying Coaching with Rev Glenna Rayo. I reviewed that Rev Rayo offers assistance on non clinical issues, supporting patients as they consider, navigate and become clear on what is most important for their end of life. Rev Rayo helps patients align how they are currently living with the vision they see for yourself at the end, then identify and set goals, along with action steps for yourself to fulfill that vision. The focus is on the 5 domains of life: Spiritual, emotional, physical, mental, and practical. Family would like this engagement with Rev Rayo and I have provided pt with Rev Rayo's contact information. Reviewed that End of life coaching and planning begins with 10 structured sessions we like to call, the best three months. Based on 10 total meetings over a 3-4 month period. Average meeting time 60-90 minutes. 2 meetings per domain. Over a three month period, there is support for the family and patient to identify their vision, current reality and steps to be taken to implement life fulfillment and care wishes in the spiritual, emotional, mental, physical and practical domains of life. This service includes: Best Three Months End-of-Life Care Coaching and Planning with Family, Patient and Co-coordination with Medical/Hospice Care Providers. daughter is agreeable to this service, contact information shared with her. 08/05:Spent 30 minutes discussing pt values and GOC with pt and his family. Pt's son shared that he has an advanced directive indicating DNR/DNI, I encouragd that they supply hospital with a coy. Patient reinforced his desire for no aggressive resuscitative efforts and requests change to DNR/DNI status. Pt shared understanding that his cancer is aggressive and widespread and not curable. His daughter shared that they plan to pursue palliative radiation and patient shared that his pain is "unbearble" and constant and if there is a chance that radiation will offer any relief he would pursue it. He shared that being at home with family is of highest importance to him and his daughter shared that he would likely move in with her on discharge. He and his son discussed that the radiation plan is for multiple fractions of short duration (15 minutes) and that although the plan is to begin with mapping while inpt, he would like to spend what time he has left out of the hospital. Orders placed for DNR/DNI per pt request. (5) Palliative care by specialist: Plan: Met with pt and his adult children at bedside. Introduced Palliative Medicine and explained our role in advanced care planning, symptom management and navigation through the progression of life limiting disease. Patient and/or family were receptive to palliative services for goals of care discussions. Reviewed we are different from hospice, a home health nurse visiting service. Plan as above; plan for discharge to home with hospice next week after 5 fractions of palliative radiation, first treatment will be today. Admission and Anticipated Discharge Date Admission Date: August 06, 2025 Subjective Assessed pt at bedside, he was AAOx4 with no visitors present. Pt states pain well managed but he has some nausea after eating this morning. RN at bedside to admin zofran. He is scheduled to begin palliaitve radiation today, was delayed yesterday due to equipment failure. Review of Systems Review of Systems: All systems reviewed & are unremarkable except as noted in Subjective Physical Exam Constitutional: WD/WN, vitals as above + cachectic and + frail appearing Eyes: PERRL, conjunctivae normal, anicteric sclerae Neck: trachea midline, no thyromegaly Respiratory: normal respiratory effort, lungs clear to auscultation Cardiovascular: RRR, no murmur, no edema Gastrointestinal (Abdomen): Inspection/Auscultation: abdomen not distended Percussion/Palpation: + abdomen tender (Mid abdomen/epigastric region.) Skin: no rashes, warm and dry Psychiatric: A+Ox3, euthymic affect Results & Data Vital Signs (Past 12 Hours) Vital Signs Temp Pulse Resp BP Pulse Ox O2 Del Method 08/09/25 07:27 36.7 C 64 17 181/79 H 95 Room Air Diagnostic Findings Abdomen/Pelvis CT 08/04/25 17:51 EXAMINATION: CT of the abdomen and pelvis performed after the administration of IV contrast TECHNIQUE: Helical CT images from the lung bases through the symphysis pubis were obtained with contrast. Coronal and sagittal reformatted images were generated at a workstation for further assessment. Dose reduction techniques were achieved by using automatic exposure control and/or adjustment of mA and/or kV according to patient size and/or use of iterative reconstruction technique. COMPARISON: 07/01/2025 HISTORY: Abdominal pain FINDINGS: A small left pleural effusion is new from prior CT. Scattered, patchy ill-defined low-density infiltrative lesions in the liver appear increased from 07/01/2025. A necrotic gastrohepatic lymph node is again seen measuring 18 mm, previously 16 mm. Scattered hepatic cysts. Adrenal glands and pancreas are unremarkable. Normal spleen. No bowel obstruction. Moderate colonic stool. Sigmoid diverticulosis without diverticulitis. No evidence for appendicitis. Normal urinary bladder. No free fluid or free air. Numerous small lytic lesions throughout the bones similar to prior. IMPRESSION: No acute finding in the abdomen or pelvis. Interval increase in hepatic metastases, as well as the necrotic gastrohepatic region lymph node metastasis. New small left pleural effusion. Electronically signed by Geovanny Moore 08-04-2025 6:[address] 08/04/25 20:18 Exam(s): CT CHEST Without Contrast EXAM: CT Chest Without Intravenous Contrast CLINICAL HISTORY: Reason for exam: Possible pneumothorax on outpatient pet ct. TECHNIQUE: Axial computed tomography images of the chest without intravenous contrast. CTDI is 10.26 mGy and DLP is 372.37 mGy-cm. Automated exposure control was utilized for the study. A dose lowering technique was utilized adhering to the principles of ALARA. COMPARISON: CT chest from 07/01/2025 FINDINGS: Lungs: Trace amount of scattered subsegmental atelectasis in both lung bases. No acute appearing infiltrate or consolidation is seen. Pleural space: Unremarkable. No significant effusion. No pneumothorax is identified. Heart: The heart is nonenlarged. There is severe coronary calcification. No significant pericardial effusion. Mediastinum: There is 1.5 cm circumferential wall thickening involving the mid to lower esophagus, similar to previous. There are 2 1 cm dense structures in the mid to lower esophagus. Bones/joints: There multiple left-sided rib fractures. The 8th and possibly 9th rib fractures appear acute or non healed. The remainder are chronic. Lytic lesion in the involving the left 7th rib, possibly neoplastic. Mild degenerative changes throughout the spine. No spinal fracture is seen. Soft tissues: Unremarkable. Vasculature: The thoracic aorta is mildly calcified but nondilated. This is a noncontrast study. Lymph nodes: Unremarkable. No enlarged lymph nodes. IMPRESSION: 1. No pneumothorax is identified. 2. There multiple left-sided rib fractures. The 8th and possibly 9th rib fractures appear acute or non healed. The remainder are chronic. 3. Lytic lesion in the involving the left 7th rib, possibly neoplastic. Correlate with recent PET-CT which is not currently available. 4. There is 1.5 cm circumferential wall thickening involving the mid to lower esophagus, similar to previous. Correlate with clinical history. Possible esophageal neoplasm. 5. There are 2 1 cm dense structures in the mid to lower esophagus. Likely recently ingested medication tablets. Electronically signed by: Mateo Brooke MD 08/05/25 01:07 AM Medications Administered Current Inpatient Medications Acetaminophen (Acetaminophen 325 Mg Tab) 650 mg PO QID PRN PRN Reason: pain/fever Stop: 09/03/25 19:13 Cyanocobalamin (Cyanocobalamin (B-12) 100 Mcg Tablet) 100 mcg PO QAM [facility] Stop: 09/04/25 08:59 Last Admin: 08/09/25 09:07 Dose: 100 mcg Enoxaparin Sodium (Enoxaparin Inj 40 Mg/0.4 Ml Syr) 40 mg SQ QAM [facility] Stop: 09/05/25 08:59 Last Admin: 08/09/25 09:07 Dose: 40 mg Famotidine (Famotidine 20 Mg Tab) 20 mg PO AMHS [facility] Stop: 09/03/25 20:59 Last Admin: 08/09/25 09:07 Dose: 20 mg Fentanyl (Fentanyl 50 Mcg/Hr Tdsy) 1 patch TD Q3D [facility] Stop: 08/21/25 08:29 Last Admin: 08/07/25 09:45 Dose: 1 patch Promethazine HCl (Phenergan) 6.25 mg in 50.25 mls @ 201 mls/hr IV Q6H PRN; Protocol PRN Reason: Nausea And Vomiting Stop: 09/03/25 19:13 Last Infusion: 08/05/25 16:53 Dose: Infused Dexamethasone 4 mg/ Syringe 1 mls @ 1 mls/min IV Q24H [facility] Stop: 09/06/25 08:29 Last Admin: 08/09/25 09:07 Dose: 1 mls/min Melatonin (Melatonin 3 Mg Tab) 3 mg PO HS PRN PRN Reason: Sleep Stop: 09/03/25 20:11 Last Admin: 08/04/25 20:51 Dose: 3 mg Miscellaneous (Fentanyl Patch Remove & Waste) 1 each N/A Q3D [facility] Stop: 09/06/25 08:28 Last Admin: 08/07/25 09:33 Dose: 1 each Miscellaneous (Check Fentanyl Patch Placement) 1 each N/A QS JANICE Stop: 09/06/25 15:59 Last Admin: 08/09/25 08:02 Dose: 1 each Morphine Sulfate (Morphine Sulfate 4 Mg/Ml 1 Ml Carp\\Vial) 4 mg IV Q4H PRN PRN Reason: breakthrough pain Stop: 08/18/25 20:09 Last Admin: 08/07/25 03:19 Dose: 4 mg Morphine Sulfate (Morphine Sulfate 10 Mg/0.5 Ml Udp) 10 mg PO Q6H PRN PRN Reason: Breakthrough Pain Stop: 08/23/25 08:53 Ondansetron HCl (Ondansetron Inj 2 Mg/Ml 2 Ml Vial) 4 mg IV Q4H PRN PRN Reason: Nausea Stop: 09/04/25 16:26 Last Admin: 08/09/25 11:27 Dose: 4 mg Pantoprazole Sodium (Pantoprazole 40 Mg Tab) 40 mg PO AMHS [facility] Stop: 09/03/25 20:59 Last Admin: 08/09/25 09:07 Dose: 40 mg Polyethylene Glycol (Polyethylene (Miralax) 17 Gm Pack) 17 gm PO BID JANICE Stop: 09/06/25 11:34 Last Admin: 08/09/25 09:03 Dose: Not Given Pregabalin (Pregabalin 25 Mg Cap) 25 mg PO BID [facility] Stop: 09/06/25 08:59 Last Admin: 08/09/25 09:07 Dose: 25 mg Senna/Docusate Sodium (Docusate Sodium/Senna 50/8.6mg Tab) 1 tab PO BID [facility] Stop: 09/03/25 20:09 Last Admin: 08/09/25 09:03 Dose: Not Given Sennosides (Senna 8.6 Mg Tab) 17.2 mg PO QAM [facility] Stop: 09/06/25 11:44 Last Admin: 08/09/25 09:03 Dose: Not Given Sucralfate (Sucralfate 1 Gm Tab) 1 gm PO ACHS [facility] Stop: 09/03/25 20:59 Last Admin: 08/09/25 11:32 Dose: Not Given PG Care Time/CCT Total # of Minutes Spent Total Time Spent with Patient: Total time spent is greater than 50% in coordination of care (as documented) at patient's floor/unit and/or counseling patient: [place] [address] SUB INP/OBS CARE 2/35MIN Patient Type Established History Expanded Problem Focused Exam Expanded Problem Focused Medical Decision Making Moderate Complexity Diagnoses Intractable abdominal pain R10.9 Nausea & vomiting R11.2 Poor appetite R63.0 Counseling regarding advanced directives and goals of care Z71.89 Palliative care by specialist Z51.5
[2025-08-09 23:50] VITALS: RESP 18
[2025-08-10 07:19] VITALS: BP 164/75; PULSE 66; TEMP 98.1; O2SAT 95
[2025-08-10 07:29] LABS: Creatinine Clr Calc Pharmacy 51.8 ml/min
[2025-08-10] MEDS: MoRPHine SULFATE 10 MG/0.5 ML UDP PO PRN (08:31)
--- NOTE | 2025-08-10 12:50 | Discharge Summary ---
Discharge Summary Date of Service August 10, 2025 Principal Dx & Hospital Course #1 = Principal Diagnosis (1) Intractable abdominal pain: (2) Esophageal cancer: Plan Patient is an 89y/o M with PMHx significant for HTN, HLD, CKD stage III, chronic back pain, GERD and recently diagnosed metastatic esophageal adenocarcinoma who presented to the ED on 08/04/25 due to intractable abdominal discomfort, primarily in the epigastric region, over the last 2 weeks. 08/02/2025 PET/CT: 1. There is a large and intensely FDG avid mass lesion in the mid to distal esophagus. This is consistent with the known history of esophageal cancer. 2. There are numerous small FDG avid mediastinal lymph nodes, as well as enlarged and FDG avid gastrohepatic nodes. This is consistent with metastatic disease. 3. Multifocal hepatic metastatic disease. 4. There is multifocal osteolytic bony metastatic disease. 5. Question trace residual right basilar pneumothorax. Intractable abdominal pain, primarily epigastric Metastatic esophageal adenocarcinoma with evidence of progressive disease on admitting imaging Severe protein-calorie malnutrition Admitting CTAP with new small L pleural effusion, interval increase in hepatic metastases, necrotic gastrohepatic region lymph node metastasis, moderate colonic stool Admitting chest CT with no pneumothorax, multiple L-sided rib fxs (8th and 9th appear new or nonhealed), lytic lesion involving the L 7th rib (possibly neoplastic) Still in a considerable amt of pain this morning, primarily in epigastrium and L rib cage - improved control with increased fentanyl patch to 50mcg/hr, 4mg IV dexamethasone daily, Lyrica 25mg BID CODE STATUS transitioned to DNR/DNI per patient's wishes on 08/05 Significantly poor appetite 2/2 dysphagia, odynophagia >> has been tolerating bone broth, coordinating with RD and will advance to soft regular foods Palliative radiation treatment start delayed to 08/09 due to machine malfunction; plan for 5 fractions of therapy on inpatient basis (EOT 08/15 due to weekend) Plan for eventual transition to hospice care per d/w pt's daughterPetrona at the end of radiation tx Plan to discharge patient to home today to continue palliative radiation as outpt along with continued pain regimen Opioid-induced constipation continue bowel regimen of MiraLAX and Senna Hypertensive urgency -> resolved Improved with optimized pain control Other chronic medical conditions: GERD - Stable on current regimen, continue only as tolerated Prediabetes - Hgb A1c 5.7% as of April 2025 CKD stage III - Cr stable today (baseline 1.4), not routinely monitoring Code Status: DNR/DNI PCP: Leandro Aldridge MD Disposition: D/C to home Patient seen in collaboration with Dr. Manrique. I spent a total of 45 minutes coordinating, documenting, and providing care for this patient excluding time spent in the performance of separately billed services or time spent by another provider/QHP. This included personally reviewing all current laboratories and imaging studies, medical reconciliation, outpatient chart review and discussion with specialists. Notes For Next Care Provider Pt planning to establish with hospice upon completion of palliative radiation to assist with pain control. Medication Changes From Visit Fentanyl patch 50mcg/72hrs, last patch was placed on 08/10, will need replaced on 08/13 Lyrica 25mg by mouth twice daily for pain Morphine liquid, 0.5ml (10mg), every 6 hours as needed for break through pain Miralax 17g by mouth twice daily for constipation Senna S 1 tablet twice daily for constipation Admission HPI Per Admitting Provider History obtained from patient, family, and records. Medical history significant for Hypertension, hyperlipidemia, mild AR, recent diagnosis of metastatic esophageal cancer, GERD, prediabetes, intention tremors, past tobacco abuse. Recent confinement last month for dysphagia and epigastric pain. Patient found to have an esophageal mass. Pathology from EGD biopsy showed poorly differentiated adenocarcinoma. Oncology recommended palliative radiation. Outpatient PET/CT requested by radiation oncologist 2 days ago showed 1. There is a large and intensely FDG avid mass lesion in the mid to distal esophagus. This is consistent with the known history of esophageal cancer. 2. There are numerous small FDG avid mediastinal lymph nodes, as well as enlarged and FDG avid gastrohepatic nodes. This is consistent with metastatic disease. 3. Multifocal hepatic metastatic disease. 4. There is multifocal osteolytic bony metastatic disease. 5. Question trace residual right basilar pneumothorax. Progressive upper abdominal discomfort over the last 2 weeks. Oxycodone not helping as much as per patient. Nausea/bilious emesis. Constipation symptoms, last bowel movement was 3 days ago which is unusual for patient. No BM despite Colace and MiraLAX Rx intake at home. No headache, no chest pain, no SOB. No fever, no chills. Poor appetite, almost 10 pound weight loss since leaving hospital last month. Patient brought to ER for evaluation. Highest SBP of 190s documented at the ER. 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 Admission Exam Per Admitting Provider GENERAL: Pleasant, slightly uncomfortable, no respiratory distress SKIN: Normal color, warm HEENT: Bespectacled, pink palpebral conjunctivae, no ptosis, dry buccal mucosa NECK : Supple, no tenderness CHEST : CTA, no tenderness HEART : RRR, no obvious murmurs ABDOMEN: Some distention, epigastric tenderness EXTREMITIES : No LE swelling/tenderness, palpable pulses, no other conspicuous deformities noted NEUROLOGIC : Coherent, no facial asymmetry, no other gross focality Discharge Exam Gen: Thin, elderly, M, flat affect, NAD, A&O x3 HEENT: Normocephalic, atraumatic, conjunctivae moist, sclerae anicteric, mucous membranes moist. Lung: Clear to Auscultation bilaterally, no wheezes/rales/rhonchi Heart: Regular rate, regular rhythm, no murmurs, rubs, or gallops Abdomen: Soft, flat, NT, ND hypoactive BS x 4 Extremities: No edema Skin: Warm, no rash, negative turgor. Updated Medication List Medication Instructions Recorded Confirmed Type cholecalciferol (vitamin D3) 25 25 mcg PO QAM 03/13/24 08/04/25 History mcg (1,000 unit) tablet (Vitamin D3) diphenhydramine 25 1 tab PO HS PRN pain/sleep 03/13/24 08/04/25 History mg-acetaminophen 500 mg tablet (Tylenol PM Extra Strength) cyanocobalamin (vitamin B-12) 100 100 mcg PO QAM 08/04/25 08/04/25 History mcg tablet (Vitamin B-12) famotidine 20 mg tablet 20 mg PO AMHS 08/04/25 08/04/25 History oxycodone 10 mg tablet 10 mg PO Q6 PRN pain,severe 08/04/25 08/04/25 History pantoprazole 40 mg tablet,delayed 40 mg PO AMHS 08/04/25 08/04/25 History release sucralfate 1 gram tablet 1 g PO ACHS 08/04/25 08/04/25 History fentanyl 50 mcg/hr transdermal 1 patch transdermal Q3D #5 ea 08/09/25 Rx patch pregabalin 25 mg capsule 25 mg PO BID #60 caps 08/09/25 Rx morphine concentrate 100 mg/5 mL 10 mg (0.5 mL) PO Q6H PRN pain 08/10/25 Rx (20 mg/mL) oral solution #120 mL polyethylene glycol 3350 17 gram 17 g PO BID #100 ea 08/10/25 Rx oral powder packet (Miralax) sennosides 8.6 mg-docusate sodium 1 tab PO BID #60 tabs 08/10/25 Rx 50 mg tablet (Senokot-S) Hospital Stay Data Consultations 08/04/25 19:09 ED Decision to Admit Stat 08/04/25 20:09 Consult Palliative Care Routine Consult Radiation Oncology Routine Diagnostic Imagining Performed Abdomen/Pelvis CT 08/04/25 17:51 EXAMINATION: CT of the abdomen and pelvis performed after the administration of IV contrast TECHNIQUE: Helical CT images from the lung bases through the symphysis pubis were obtained with contrast. Coronal and sagittal reformatted images were generated at a workstation for further assessment. Dose reduction techniques were achieved by using automatic exposure control and/or adjustment of mA and/or kV according to patient size and/or use of iterative reconstruction technique. COMPARISON: 07/01/2025 HISTORY: Abdominal pain FINDINGS: A small left pleural effusion is new from prior CT. Scattered, patchy ill-defined low-density infiltrative lesions in the liver appear increased from 07/01/2025. A necrotic gastrohepatic lymph node is again seen measuring 18 mm, previously 16 mm. Scattered hepatic cysts. Adrenal glands and pancreas are unremarkable. Normal spleen. No bowel obstruction. Moderate colonic stool. Sigmoid diverticulosis without diverticulitis. No evidence for appendicitis. Normal urinary bladder. No free fluid or free air. Numerous small lytic lesions throughout the bones similar to prior. IMPRESSION: No acute finding in the abdomen or pelvis. Interval increase in hepatic metastases, as well as the necrotic gastrohepatic region lymph node metastasis. New small left pleural effusion. Electronically signed by Geovanny Moore 08-04-2025 6:[address] 08/04/25 20:18 Exam(s): CT CHEST Without Contrast EXAM: CT Chest Without Intravenous Contrast CLINICAL HISTORY: Reason for exam: Possible pneumothorax on outpatient pet ct. TECHNIQUE: Axial computed tomography images of the chest without intravenous contrast. CTDI is 10.26 mGy and DLP is 372.37 mGy-cm. Automated exposure control was utilized for the study. A dose lowering technique was utilized adhering to the principles of ALARA. COMPARISON: CT chest from 07/01/2025 FINDINGS: Lungs: Trace amount of scattered subsegmental atelectasis in both lung bases. No acute appearing infiltrate or consolidation is seen. Pleural space: Unremarkable. No significant effusion. No pneumothorax is identified. Heart: The heart is nonenlarged. There is severe coronary calcification. No significant pericardial effusion. Mediastinum: There is 1.5 cm circumferential wall thickening involving the mid to lower esophagus, similar to previous. There are 2 1 cm dense structures in the mid to lower esophagus. Bones/joints: There multiple left-sided rib fractures. The 8th and possibly 9th rib fractures appear acute or non healed. The remainder are chronic. Lytic lesion in the involving the left 7th rib, possibly neoplastic. Mild degenerative changes throughout the spine. No spinal fracture is seen. Soft tissues: Unremarkable. Vasculature: The thoracic aorta is mildly calcified but nondilated. This is a noncontrast study. Lymph nodes: Unremarkable. No enlarged lymph nodes. IMPRESSION: 1. No pneumothorax is identified. 2. There multiple left-sided rib fractures. The 8th and possibly 9th rib fractures appear acute or non healed. The remainder are chronic. 3. Lytic lesion in the involving the left 7th rib, possibly neoplastic. Correlate with recent PET-CT which is not currently available. 4. There is 1.5 cm circumferential wall thickening involving the mid to lower esophagus, similar to previous. Correlate with clinical history. Possible esophageal neoplasm. 5. There are 2 1 cm dense structures in the mid to lower esophagus. Likely recently ingested medication tablets. Electronically signed by: Mateo Brooke MD 08/05/25 01:07 AM Pending Results Patient Have Any Pending Studies at Discharge: No Discharge Instructions Given to Patient (Per Discharging Provider) MEDICATION CHANGES: Fentanyl patch 50mcg/72hrs, last patch was placed on 08/10, will need replaced on 08/13 Lyrica 25mg by mouth twice daily for pain Morphine liquid, 0.5ml (10mg), every 6 hours as needed for break through pain Miralax 17g by mouth twice daily for constipation Senna S 1 tablet twice daily for constipation RECOMMENDATIONS FOR FOLLOW-UP: Please continue radiation treatments. Your next one will be 08/13/25. Please contact radiation oncology in the morning of 08/13 to determine timing of treatment. Please take stool softeners as prescribed to promote regular bowel movements while taking pain medications. Please follow up with hospice agency after discontinuation of radiation to establish care. It has been a pleasure taking care of you. Please take care of yourself. If you have any questions regarding your recent hospitalization please contact [facility] and request Tara Kymberlyist @ [phone]. Total Time Total Time Spent Total Time Spent (In Minutes): 45 minutes Supervising Physician Co-Signing Physician Notes Patient's pain is well-controlled. Plan is for him to be discharged home and continue palliative radiation on Tuesday. After completion of palliative radiation; patient will be started on hospice care. Patient and family in agreement I have reviewed the advanced practitioner's documentation, and I agree with, and take responsibility for the plan of care I spent a total of 30 minutes coordinating, documenting, and providing care for this patient excluding time spent in the performance of separately billed services. All of the aforementioned completed while collaborating with the assigned advanced practitioner for a full treatment plan
== END 2025-08-10 13:13 | disposition hospice, home (50) | DRG 374 ==
LOC: ED 17:01 → 3N 17:01 → SUATTDRO 08-06 14:19